=== PATIENT | male | born 1940 | race Caucasian/White ===

== ENCOUNTER 2016-06-23 08:47 | Inpatient (IN) | payer MEDICARE, MEDICAID ==
[~2016-06-23] VITALS: Ht 175.3 cm; Wt 112.5 kg
[~2016-06-23 08:47] MED LIST: ACET-2605 PO; ALLA266C2 TP; ASCO500T10 PO; ASPI81TA2 PO; BACL10TA PO; BALS750C7 PO; BUDE3CAP8 PO; CALC500T3 PO; CYAN100T3 PO; DIVA250T47 PO; ERGO400C PO; FERR325T28 PO; FOLI1TAB16 PO; HYDR-548 PO; LEVE500T9 PO; LIDO30AD10 TP; LOPE2CAP PO; MAGN400O6 PO; METO50TA3 PO; MULT1TAB11 PO; MUPI15CR NS; NA P133E RC; PANT40TA2 PO; TRAM50TA2 PO
--- NOTE | 2016-06-23 08:53 | NUR ---
PT BBPA FROM [facility]: BILATERAL LOWER EXTREMITY CELLULITIS . PLACED ON MONITOR. VSS. AWAITING MD ORDER
[2016-06-23] MEDS ORDERED: VANCOMYCIN 1 GM in IV D5W 250 ML IV ONE (09:00)
[2016-06-23] MEDS ORDERED: GENTAMICIN 80 MG in IV D5W 50 ML IV ONE (09:00)
--- NOTE | 2016-06-23 09:01 | NUR ---
LAC #18 IV ACCESS. BLOOD SAMPLE COLLECTED SENT TO LAB
--- NOTE | 2016-06-23 09:10 | NUR ---
URINE SAMPLE COLLECTED SENT TO LAB
[2016-06-23] MEDS ORDERED: IV SET PRIMARY PUMP SET 1 EA INFUS.SET MC ONE (09:21)
[2016-06-23 09:23] LABS: CALCIUM, SERUM 8.5 mg/dL (8.5-10.1); CARBON DIOXIDE 31 mmol/L (21-32); CHLORIDE 105 mmol/L (98-107); CREATININE 1.6 mg/dL (0.6-1.3); GLUCOSE 131 mg/dL (74-106); POTASSIUM 4.1 mmol/L (3.5-5.1); SODIUM SERUM 142 mmol/L (136-145); UREA NITROGEN, BLOOD 32 mg/dL (7-18)
[2016-06-23] MEDS ORDERED: VALS40TA4 PO (09:23)
[2016-06-23] MEDS ORDERED: SIMV10TA6 PO (09:23)
[2016-06-23] MEDS ORDERED: ACET325T53 PO (09:23)
[2016-06-23] MEDS ORDERED: CALC-108 PO (09:23)
[2016-06-23] MEDS ORDERED: NITR0.4T6 SL (09:23)
[2016-06-23] MEDS ORDERED: CHOL200026 PO (09:23)
[2016-06-23] MEDS ORDERED: FURO-145 PO (09:23)
[2016-06-23] MEDS ORDERED: DIVA500T54 PO (09:23)
[2016-06-23] MEDS ORDERED: METO25TA6 PO (09:23)
[2016-06-23] MEDS ORDERED: MELA3TAB PO (09:23)
[2016-06-23 09:24] LABS: BASOPHILS % (AUTO) 0.1 % (0.0-2.0); EOSINOPHILS % (AUTO) 0.2 % (0.0-6.0); HEMATOCRIT 38 % (39-51); HEMOGLOBIN 12.3 g/dL (13.5-17.5); LYMPHOCYTES # (AUTO) 1.2 /CMM (0.8-4.8); MEAN CORPUSCULAR HEMOGLOBIN 29 PG (26.0-33.0); MEAN CORPUSCULAR HGB CONC 32 g/dl (31.0-36.0); MEAN CORPUSCULAR VOLUME 91 fL (80-96); MONOCYTES # (AUTO) 0.4 /CMM (0.1-1.30); MONOCYTES % (AUTO) 3.5 % (2.0-12.0); NEUTROPHILS # (AUTO) 8.9 /CMM (1.8-8.9); NEUTROPHILS % (AUTO) 85.2 % (43.0-81.0); PLATELET COUNT (AUTO) 171 /CMM (150-450); RED BLOOD CELL COUNT(AUTO) 4.22 MIL/uL (4.5-6.0); WHITE BLOOD COUNT (AUTO) 10.5 K/uL (4.3-11.0)
[2016-06-23 09:29] LABS: ALANINE AMINOTRANSFERASE 11 U/L (12-78); ALBUMIN 2.5 g/dL (3.4-5.0); ALKALINE PHOSPHATASE 29 U/L (46-116); ASPARTATE AMINOTRANSFERASE 13 U/L (15-37); BILIRUBIN,DIRECT 0.1 mg/dL (0.0-0.2); BILIRUBIN,TOTAL 0.6 mg/dL (0.2-1.0); INR 1.02 (0.87-1.13); PROTHROMBIN TIME 10.9 SECS (9.5-12.7); TOTAL PROTEIN, SERUM 6.2 g/dL (6.4-8.2)
--- NOTE | 2016-06-23 09:41 | NUR ---
DR REIS CALLED
[2016-06-23 09:45] LABS: TROPONIN I 0.749 ng/mL (0.00-0.056)
[2016-06-23] MEDS ORDERED: ASPIRIN 325 MG TABLET ONE (09:53)
[2016-06-23] MEDS ORDERED: ASPIRIN 325 MG TABLET PO ONE (10:00)
[2016-06-23 10:07] LABS: LACTIC ACID 2.9 mmol/L (0.4-2.0)
[2016-06-23 10:15] LABS: APPEARANCE,URINE Cloudy (CLEAR); BILIRUBIN,URINE SMALL (NEGATIVE); BLOOD, URINE Moderate Ery/uL (NEGATIVE); COLOR,URINE Yellow (YELLOW); KETONES,URINE Negative (NEGATIVE); LEUKOCYTE ESTERASE ,URINE Large (NEGATIVE); NITRITE, URINE Negative (NEGATIVE); PH,URINE 8.5 (5.0-8.0); PROTEIN,URINE 100 mg/dl (NEGATIVE); UGLUCOSE Negative (NEGATIVE); UROBILINOGEN,URINE 0.2 EU/dL (0.2)
[2016-06-23 10:25] LABS: ADD URINE CULTURE YES; BACTERIA,URINE Few /HPF (None Seen); WBC,URINE 81-100 /HPF (0-3)
[2016-06-23 10:26] LABS: SQUAMOUS EPITHELIAL CELL,UR Rare /HPF (None Seen)
[2016-06-23] MEDS ORDERED: IV NS 0.9% 1,000 ML BAG IV ONE (10:30)
--- NOTE | 2016-06-23 10:55 | NUR ---
GAVE REPORT TO CLIVE MADISON [facility] ROOM 204 -[address] SIBLEY HOMICIDE SQUAD COMMANDING OFFICER SAW PT. TRANSFER VIA W ERT.
[2016-06-23] MEDS: VALSARTAN 40 MG TABLET PO SCH (11:00)
[2016-06-23] MEDS ORDERED: NA PHOS,M-B/NA PHOS,DI-BA 1 EA ENEMA RC PRN (11:00)
[2016-06-23] MEDS: METOPROLOL TARTRATE 25 MG TABLET PO SCH ×2 (11:00→17:08)
[2016-06-23] MEDS ORDERED: MAGNESIUM HYDROXIDE 30 ML UDC PO PRN (11:00)
[2016-06-23] MEDS ORDERED: NITROGLYCERIN 0.4 MG/TAB BOTTLE SL PRN (11:00)
[2016-06-23 11:30] VITALS: BP 103/63
--- NOTE | 2016-06-23 11:30 | NUR ---
MS RN OPENING RECEIVED PATIENT FROM ER FOR C/O INCREASED PAIN, SOB, DIFFICULTY BREATHING. PATIENT DENIES CHEST PAIN. PATIENT ASSISTED TO BED, LINENS CHANGED, BED BATH COMPLETED. PATIENT STATES NO NEEDS AT THIS TIME. VS BEING TAKEN AND DR ANDERSON OFFICE CALLED TO NOTIFY OF ADMISSION AND REPEAT LACTIC ACID LEVEL 2.1. PATIENT STABLE AT THIS TIME. CALL LIGHT IN REACH, BED LOWERED AND LOCKED, RAILS UPX3 FOR SAFETY WITH BED ALARM ON. WILL ROUND Q2H OR LESS PER NEEDS
--- NOTE | 2016-06-23 11:35 | NUR ---
TELE-RN NOTES PATIENT TRANSFERRED FROM UNIT 2 RM 204-1 TO RM 307-1 FOR TELE MONITORING VIA HIS BED. ALERT AND ORIENTED X 3 IN NO ACUTE SIGNS OF DISTRESS. PATIENT HAS DIAGNOSIS OF CELLULITIS TO B/L LOWER EXT. REDNESS AND SWELLING NOTED TO B/L LOWER EXT. PATIENT HAS PMHX OF DVT LLE, SEIZURE, GERD, COLITIS, CHRONIC KIDNEY DSE, BPH, AND HTN. TELE-MONITORING STARTED WITH READING OF SR AND HR OF 82, NO C/O CHEST PAIN OR DISCOMFORTS VOICED AT THIS TIME. V/S CHECKED AND RECORDED. IV ACCESS G# ON LEFT AC # 18 INTACT AND PATENT, FLUSHED WITH SALINE ZENAIDA'N WITHOUT PROBLEM. B/L LOWER EXT OFFLOADED. CALL LIGHT KEEP WITHIN REACH OF PATIENT. BED PUT AT LOWEST POSSIBLE LEVEL, LOCK, ALARM ON AND PUT SIDE RAILS UP X3 FOR SAFETY. WILL CONTINUE TO MONITOR ACCORDINGLY.
[2016-06-23 11:47] LABS: PHOSPHORUS 3.3 mg/dL (2.5-4.9)
--- NOTE | 2016-06-23 11:58 | NUR ---
MS RN NOTES DR ANDERSON AT BEDSIDE. PER MD TRANSFER TO TELE. POSS DVT RIGHT LOWER EXTREMITY. WRITTEN ORDERS BEING CARRIED OUT
--- NOTE | 2016-06-23 12:00 | NUR ---
MS RN NOTES REPORT GIVEN TO FRANCESCO MADISON. DR SIBLEY PAGED TO CONFIRM TELE STATUS. PATIENT TRANSFERED TO TELE 307-[address] ANDERSON ORDER. JEANNETTE TRANSFERED TO FRANCESCO MADISON
[2016-06-23 12:01] LABS: THYROID STIMULATING HORMONE 0.727 uIU/mL (0.358-3.74)
[2016-06-23] MEDS ORDERED: FEE PK DOSING 1 MIN EA MC ONE (12:59)
[2016-06-23] MEDS: ASPIRIN 81 MG TAB.CHEW PO SCH (13:40)
[2016-06-23] MEDS: BALSALAZIDE DISODIUM 750 MG CAPSULE PO SCH ×2 (13:41→17:10)
[2016-06-23] MEDS: BACLOFEN (10 MG) 10 MG TABLET PO SCH ×2 (13:41→17:08)
[2016-06-23] MEDS: BUDESONIDE 3 MG CAP.SR.24H PO SCH (13:42)
--- NOTE | 2016-06-23 14:15 | NUR ---
RN NOTES RECEIVED CALL FROM LABORATORY THAT PATIENT'S TROPONIN LEVEL WENT UP FROM 0.749 TO 1.327. CHARGE NURSE AND DR SIBLEY MADE AWARE WITH ORDER TO START ON LOVENOX 100MG/ML BID. TROPONIN LEVEL WILL BE TAKEN AGAIN TONIGHT.
[2016-06-23] MEDS: CYANOCOBALAMIN 100 MCG TABLET PO SCH (14:16)
[2016-06-23 16:12] VITALS: BP 100/75
[2016-06-23] MEDS ORDERED: ENOXAPARIN SODIUM 100 MG/ML DISP.SYRIN SQ SCH (16:53)
[2016-06-23] MEDS ORDERED: DIVALPROEX SODIUM 250 MG TABLET.DR PO SCH (17:00)
[2016-06-23] MEDS: DIVALPROEX SODIUM 500 MG TABLET.DR PO SCH (17:07)
[2016-06-23] MEDS: CALCIUM CARB 600MG /VIT D 1 EACH TABLET PO SCH (17:08)
--- NOTE | 2016-06-23 18:51 | NUR ---
BURRITO MAKER CLOSING NOTES PATIENT AWAKE AND RESTING AT MODERATE HIGH BACKREST IN BED. ALERT AND ORIENTED X 4, NO C.O PAIN OR DISCOMFORTS VOICED. ALL NEEDS AND CARE WELL ATTENDED. MAINTAINED ON ROOM AIR, NO ACUTE DISTRESS NOTED. ALL DUE MEDS GIVEN ORDERED AND TOLERATED. CONTINUES ON TELE-MONITORING WITH CURRENT READING OF SR AND HR OF 84, NO C/O CHEST PAIN DURING SHIFT. IV ACCESS ON LEFT AC INTACT AND PATENT. CALL LIGHT WITHIN REACH, BED IN LOW POSITION AND BREAKS ARE LOCKED FOR SAFETY PRECAUTIONS. WILL ENDORSED TO LOBSTER FISHERMAN NURSE FOR JEANNETTE
--- NOTE | 2016-06-23 19:30 | NUR ---
RN NOTE; RECEIVED PT IN BED AWAKE AND ALERT, HAVING BLE US DONE. BREATHING EVENLY. NO SOB. NO DISTRESS. SKIN WARM AND DRY W/ BLE SWOLLEN AND RED AND CHRONIC PAIN. HEART MONITOR IN PLACE READING SR. NEEDS ATTENDED .CALL LIGHT WITHIN REACH. WILL CONT TO MONITOR .
[2016-06-23 20:00] VITALS: BP 101/55
[2016-06-23 20:04] VITALS: BP 101/55
--- NOTE | 2016-06-23 20:42 | NUR ---
REPORT GIVEN TO MIGUEL ANGEL FOR JEANNETTE.
--- NOTE | 2016-06-23 20:45 | NUR ---
TELE SUPERVISOR FUR DRESSING INITIAL NOTES CHECKED PT AFTER GOT REPORT FROM NURSE SEGOVIA FOR CONTINUITY OF CARE. PT RESTING WITH EYES CLOSED BUT AROUSES TO TOUCH, DENIES ANY PAIN OR ANY DISCOMFORT. CELLULITIS NOTED ON HIS BILATERAL LOWER EXTREMITIES, OFFLOAD ON PILLOWS. HEPLOCK ON HIS LEFT AC GAUGE 18 PATENT AND INTACT. AWARE WHERE HE AT AND HOW TO USED THE CALL LIGHT SYSTEM. KEPT HIM WARM AND COMFORTABLE AT ALL TIMES. TELE SR 84 PER MONITOR. BED ALARM SET FOR PT SAFETY. PLACE CALL LIGHT AT REACH. WILL CONTINUE TO MONITOR.
[2016-06-23] MEDS: SIMVASTATIN 10 MG TABLET PO SCH (21:48)
[2016-06-23] MEDS: LEVETIRACETAM (250 MG) 250 MG TABLET PO SCH (21:48)
[2016-06-23] MEDS ORDERED: Medication Not On Formulary EA (Melatonin 3 MG) PO SCH (22:00)
[2016-06-24] VITALS (7 sets, daily range): BP systolic 98–137; BP diastolic 58–67
[2016-06-24] MEDS: ACETAMINOPHEN 325 MG TABLET PO PRN ×3 (00:05→14:18)
[2016-06-24] MEDS: VANCOMYCIN 1.25 GM in IV D5W 500 ML IV SCH ×2 (03:00→20:49)
--- NOTE | 2016-06-24 03:00 | NUR ---
TELE PRESS TENDER STAR SIGNAL NOTES PT SLEEPING AT THIS TIME WITHOUT ELY ACUTE DISTRESS NOTED. VANCOMYCIN IVP BAG HUNG BY ANOTHER NURSE ORDERED. TELE SR PER MONITOR. KEPT HIM WARM AND COMFORTABLE AT ALL TIMES. WILL CONTINUE TO MONITOR.
[2016-06-24] MEDS ORDERED: VANCOMYCIN 1 GM VIAL ONE (03:23)
[2016-06-24] MEDS ORDERED: IV D5W 500 ML IV ONE (03:24)
[2016-06-24 07:08] LABS: BASOPHILS % (AUTO) 0.2 % (0.0-2.0); EOSINOPHILS # (AUTO) 0.4 /CMM (0.0-0.7); EOSINOPHILS % (AUTO) 3.6 % (0.0-6.0); HEMATOCRIT 38 % (39-51); LYMPHOCYTES # (AUTO) 1.6 /CMM (0.8-4.8); LYMPHOCYTES % (AUTO) 14.2 % (20.0-44.0); MEAN CORPUSCULAR HEMOGLOBIN 29 PG (26.0-33.0); MEAN CORPUSCULAR HGB CONC 31 g/dl (31.0-36.0); MEAN CORPUSCULAR VOLUME 92 fL (80-96); MONOCYTES # (AUTO) 0.7 /CMM (0.1-1.30); MONOCYTES % (AUTO) 5.8 % (2.0-12.0); NEUTROPHILS # (AUTO) 8.6 /CMM (1.8-8.9); NEUTROPHILS % (AUTO) 76.2 % (43.0-81.0); RDW COEFFICIENT OF VARIATION 14.3 (11.5-15.0); RED BLOOD CELL COUNT(AUTO) 4.17 MIL/uL (4.5-6.0); WHITE BLOOD COUNT (AUTO) 11.3 K/uL (4.3-11.0)
[2016-06-24 07:27] LABS: ALBUMIN 2.1 g/dL (3.4-5.0); BILIRUBIN,TOTAL 0.5 mg/dL (0.2-1.0); CALCIUM, SERUM 9.1 mg/dL (8.5-10.1); CREATININE 1.6 mg/dL (0.6-1.3); MAGNESIUM 2.2 mg/dL (1.8-2.4); PHOSPHORUS 3.4 mg/dL (2.5-4.9); POTASSIUM 4.2 mmol/L (3.5-5.1); TOTAL PROTEIN, SERUM 6.1 g/dL (6.4-8.2)
--- NOTE | 2016-06-24 07:30 | NUR ---
TELE SLEEVE MAKER CLOSING NOTES PT BACK TO REST AFTER MORNING CARE DONE. HEPLOCK PATENT AND INTACT. STABLE AMBREEN THE NIGHT AND SLEPT WELL. BREATHING EVEN AND UN-LABORED, ALL DUE MEDS GIVEN AND ALL NEEDS MET. KEPT HIM WARM AND COMFORTABLE AT ALL TIMES. PLACE CALL LIGHT AT REACH. TELE SR PER MONITOR. ENDORSE TO AM NURSE YANY .
--- NOTE | 2016-06-24 07:30 | NUR ---
SAT ACT INSTRUCTOR OPENING NOTE PATIENT IS ALERT AND ORIENTED x4. NO PAIN AT THIS TIME. NO SOB OR DISTRESS NOTED. CALL LIGHT WITHIN REACH. SAFETY MEASURES IMPLEMENTED. IV INTACT AND PATENT NO REDNESS OR SWELLING. ABLE TO COMMUNICATE NEEDS. BEDREST. TELE MONITOR- SR- 81. WILL CONTINUE TO MONITOR
[2016-06-24 08:30] LABS: TROPONIN I 0.834 ng/mL (0.00-0.056)
--- NOTE | 2016-06-24 08:50 | NUR ---
RN NOTE PATIENT STATES HEADACHE 3/10. PAIN MEDICATION GIVEN. WILL REASSESS FOR PAIN.
[2016-06-24] MEDS ORDERED: IV NS 0.9% 1,000 ML IV PRN (08:52)
[2016-06-24] MEDS: ASPIRIN 81 MG TAB.CHEW PO SCH (08:57)
[2016-06-24] MEDS: LEVETIRACETAM (250 MG) 250 MG TABLET PO SCH ×2 (08:57→21:04)
[2016-06-24] MEDS: CHOLECALCIFEROL 1,000 UNIT TABLET (VIT D3) PO SCH (08:57)
[2016-06-24] MEDS: MULTIVIT, IRON, MIN NO. 8, FA 1 TAB TABLET PO SCH (08:57)
[2016-06-24] MEDS: DIVALPROEX SODIUM 250 MG TABLET.DR PO SCH ×2 (08:57→14:17)
[2016-06-24] MEDS: BACLOFEN (10 MG) 10 MG TABLET PO SCH ×2 (08:57→17:26)
[2016-06-24] MEDS: BALSALAZIDE DISODIUM 750 MG CAPSULE PO SCH ×3 (08:58→17:27)
[2016-06-24] MEDS: CYANOCOBALAMIN 100 MCG TABLET PO SCH (08:58)
[2016-06-24] MEDS: VALSARTAN 40 MG TABLET PO SCH (08:58)
[2016-06-24] MEDS: BUDESONIDE 3 MG CAP.SR.24H PO SCH (08:58)
[2016-06-24 09:09] LABS: BAND % (MANUAL) 1 % (0.0-5.0); EOSINOPHILS % (MANUAL) 5 % (0-4); LYMPHOCYTES % (MANUAL) 13 % (16-48); MONOCYTES % (MANUAL) 10 % (0-11.0); NEUTROPHILS % (MANUAL) 71 (42-76)
[2016-06-24 09:11] LABS: PLATELET ESTIMATE ADEQUATE
--- NOTE | 2016-06-24 09:50 | NUR ---
RN NOTE REASSESSED PATIENT FOR PAIN. NO HEADACHE PRESENT. ABLE TO MAKE NEEDS KNOWN. WILL CONTINUE TO MONITOR
[2016-06-24] MEDS: CALCIUM CARB 600MG /VIT D 1 EACH TABLET PO SCH ×2 (09:51→17:26)
[2016-06-24] MEDS: METOPROLOL TARTRATE 25 MG TABLET PO SCH ×2 (09:51→17:00)
[2016-06-24] MEDS: ENOXAPARIN SODIUM 40 MG/0.4 ML DISP.SYRIN SQ SCH (09:52)
[2016-06-24 10:17] LABS: PLATELET COUNT (AUTO) 117 /CMM (150-450)
--- NOTE | 2016-06-24 14:00 | NUR ---
RN NOTE PATIENT STATED PAIN 5/10. PAIN MEDICATION GIVEN, WILL REASSESS PATIENT. WILL CONTINUE TO MONITOR
[2016-06-24] MEDS ORDERED: LEVOFLOXACIN 500 MG /D5W 100ML 500 MG in PREMIX 1 EA IV ONE (17:30)
[2016-06-24] MEDS ORDERED: hydrALAZINE HCL 25 MG TABLET PO PRN (17:30)
[2016-06-24] MEDS: DIVALPROEX SODIUM 500 MG TABLET.DR PO SCH (17:30)
--- NOTE | 2016-06-24 17:30 | NUR ---
BUSINESS PROCESS REPRESENTATIVE NOTE HELD PATIENTS BLOOD PRESSURE MEDICATION. BLOOD PRESSURE TOO LOW TO GIVE. MADE CHARGE NURSE AWARE.
--- NOTE | 2016-06-24 18:34 | NUR ---
NCA CERTIFIED CONCIERGE NOTE PATIENT IS ALERT AND ORIENTED X4. NO PAIN AT THIS TIME. NO SOB OR DISTRESS NOTED. ALL DUE MEDICATION GIVEN ORDERED. ABLE TO COMMUNICATE NEEDS. CALL LIGHT WITHIN REACH AT ALL TIMES. SAFETY MEASURES IMPLEMENTED. ALL NURSING CARE NEEDS ATTENDED TO. FREQUENT MONITORING FOR PAIN ASSESSMENT THROUGHOUT SHIFT. RECEIVED ONE DOSE OF LEVAQUIN IV. IV INTACT AND PATENT NO REDNESS OR SWELLING NOTED. WILL ENDORSE TO HR PAYROLL COORDINATOR NURSE Addendum: 06/24/16 at 1836 by YANY YARBROUGH RN CLOSING NOTE*
--- NOTE | 2016-06-24 19:00 | NUR ---
FOREST MANAGEMENT PROFESSOR NOTES RECEIVED RESTING COMFORTABLY ON BED,A/O X3,BREATHING NON LABORED,ABLE TO VERBALIZED NEEDS,NOTED REDNESS ON BOTH LEGS,ELEVATED ON PILLOWS.SALINE LOCK LEFT AC INTACT AND PATENT.KENNETH PAIN AT THE MOMENT.CALL LIGHT IN REACH,NEEDS ANTICIPATED.
--- NOTE | 2016-06-24 20:49 | NUR ---
MS RN NOTES DUE VANCOMYCIN 1.25GM IVPB HUNG
--- NOTE | 2016-06-24 21:00 | NUR ---
PLANT WRAPPER NOTES DUE PO MEDS GIVEN,TAKEN WELL.
[2016-06-24] MEDS: SIMVASTATIN 10 MG TABLET PO SCH (21:04)
[2016-06-25] VITALS: BP 114/63
[2016-06-25] MEDS: ACETAMINOPHEN 325 MG TABLET PO PRN ×3 (03:22→22:24)
--- NOTE | 2016-06-25 03:22 | NUR ---
LAB REP NOTES C/O GENERALIZED PAIN 3/10 ON PAIN SCALE,MEDICATED WITH TYLENOL 650MG PO PER PATIENT REQUEST.
[2016-06-25 04:00] VITALS: BP 118/65
[2016-06-25 06:46] VITALS: BP 106/72
--- NOTE | 2016-06-25 06:49 | NUR ---
MATERIAL INSPECTOR NOTES FAIRLY RESTED.IV ABX TOLERATED WELL.PRESENT IVF INFUSING,SITE REMAINS PATENT.TYLENOL EFFECTIVE FOR PAIN.CALL LIGHT IN REACH,NEEDS ATTENDED.WILL ENDORSE TO DAY NURSE FOR JEANNETTE.
[2016-06-25 07:07] LABS: BASOPHILS % (AUTO) 0.2 % (0.0-2.0); EOSINOPHILS # (AUTO) 0.3 /CMM (0.0-0.7); EOSINOPHILS % (AUTO) 3.6 % (0.0-6.0); HEMATOCRIT 34 % (39-51); HEMOGLOBIN 11.2 g/dL (13.5-17.5); LYMPHOCYTES # (AUTO) 1.1 /CMM (0.8-4.8); LYMPHOCYTES % (AUTO) 12.4 % (20.0-44.0); MEAN CORPUSCULAR HEMOGLOBIN 30 PG (26.0-33.0); MEAN CORPUSCULAR HGB CONC 33 g/dl (31.0-36.0); MEAN CORPUSCULAR VOLUME 91 fL (80-96); MONOCYTES # (AUTO) 0.7 /CMM (0.1-1.30); MONOCYTES % (AUTO) 7.7 % (2.0-12.0); NEUTROPHILS # (AUTO) 6.6 /CMM (1.8-8.9); NEUTROPHILS % (AUTO) 76.1 % (43.0-81.0); PLATELET COUNT (AUTO) 132 /CMM (150-450); RDW COEFFICIENT OF VARIATION 14.5 (11.5-15.0); RED BLOOD CELL COUNT(AUTO) 3.76 MIL/uL (4.5-6.0); WHITE BLOOD COUNT (AUTO) 8.7 K/uL (4.3-11.0)
[2016-06-25 07:29] LABS: CALCIUM, SERUM 9.5 mg/dL (8.5-10.1); CREATININE 1.4 mg/dL (0.6-1.3); MAGNESIUM 1.9 mg/dL (1.8-2.4); PHOSPHORUS 3.6 mg/dL (2.5-4.9); POTASSIUM 3.9 mmol/L (3.5-5.1)
--- NOTE | 2016-06-25 07:30 | NUR ---
CHEMICAL PROCESSING SUPERVISOR OPENING NOTE PATIENT IS ALERT AND ORIENTED x4. NO PAIN AT THIS TIME. NO SOB OR DISTRESS NOTED. CALL LIGHT WITHIN REACH. SAFETY MEASURES IMPLEMENTED. ABLE TO COMMUNICATE NEEDS. IV INTACT AND PATENT. PATIENT STILL HAS BILATERAL LOWER LEG CELLULITIS, WOUND CARE NURSE TO SEE PATIENT LATER THIS MORNING. BED REST, REPOSITIONING FREQUENTLY. LOWER EXTREMITIES OFFLOADING. WILL CONTINUE TO MONITOR
--- NOTE | 2016-06-25 08:16 | NUR ---
WOUND CARE CONSULT: PT PRESENTS WITH SWELLING AND REDNESS TO BILATERAL LOWER LEGS WITH SOME REDNESS TO RT INNER THIGH AND LATERAL THIGH, PRESENT ON ADMISSION. PT IS INCONTINENT. SKIN TO BE KEPT CLEAN AND DRY. LEGS ELEVATED. DISCUSSED SKIN PROTECTION WITH NURSING STAFF. PT FOLLOWED BY DPM. WILL SEE PRN. PT ON COMFORT GEL MATTRESS. MARY SCORE IS 16. MD IN AGREEMENT WITH PLAN OF CARE. Addendum: 06/25/16 at 0818 by JAYSON NAVARRETE WNDNU Amended: Links added.
--- NOTE | 2016-06-25 08:45 | NUR ---
RN NOTE PATIENT TAKEN OFF TELE MONITOR PER INTERNAL COMMUNICATIONS MANAGER. MADE PATIENT AWARE. PATIENT UNDERSTANDS REASON FOR TELE MONITORING REMOVAL. SKIN INTACT, PATIENT TOLERATED WELL. WILL CONTINUE TO MONITOR
[2016-06-25] MEDS: ENOXAPARIN SODIUM 40 MG/0.4 ML DISP.SYRIN SQ SCH (08:49)
[2016-06-25] MEDS: ASPIRIN 81 MG TAB.CHEW PO SCH (08:50)
[2016-06-25] MEDS: LEVETIRACETAM (250 MG) 250 MG TABLET PO SCH ×2 (08:51→21:53)
[2016-06-25] MEDS: DIVALPROEX SODIUM 250 MG TABLET.DR PO SCH ×2 (08:51→12:20)
[2016-06-25] MEDS: CHOLECALCIFEROL 1,000 UNIT TABLET (VIT D3) PO SCH (08:54)
[2016-06-25] MEDS: MULTIVIT, IRON, MIN NO. 8, FA 1 TAB TABLET PO SCH (08:54)
[2016-06-25] MEDS: CALCIUM CARB 600MG /VIT D 1 EACH TABLET PO SCH ×2 (08:54→17:36)
[2016-06-25] MEDS: BACLOFEN (10 MG) 10 MG TABLET PO SCH ×2 (08:56→17:36)
[2016-06-25] MEDS: METOPROLOL TARTRATE 25 MG TABLET PO SCH ×2 (08:56→17:35)
[2016-06-25] MEDS: BALSALAZIDE DISODIUM 750 MG CAPSULE PO SCH ×3 (08:58→17:36)
[2016-06-25] MEDS: CYANOCOBALAMIN 100 MCG TABLET PO SCH (08:59)
[2016-06-25] MEDS: BUDESONIDE 3 MG CAP.SR.24H PO SCH (09:01)
[2016-06-25] MEDS: Z GUARD REMEDY 2 OZ OINT TP SCH (09:35)
[2016-06-25] MEDS ORDERED: CEPHALEXIN MONOHYDRATE 250 MG/5 ML BOTTLE PO SCH (13:00)
[2016-06-25] MEDS ORDERED: CEPHALEXIN MONOHYDRATE 250 MG CAPSULE PO SCH (13:30)
[2016-06-25] MEDS: CEPHALEXIN MONOHYDRATE 500 MG CAPSULE PO SCH (14:38)
[2016-06-25] MEDS: VANCOMYCIN 1.25 GM in IV D5W 500 ML IV SCH ×2 (14:39→15:00)
--- NOTE | 2016-06-25 15:04 | NUR ---
MS RN NOTE VANCOMYCIN TROUGH IS 21. NOTIFIED RAJENDRA FROM PHARMACY TO MAKE AWARE. MEDICATION HELD. WILL CONTINUE TO MONITOR PATIENT
[2016-06-25 16:00] VITALS: BP 126/66
[2016-06-25] MEDS: DIVALPROEX SODIUM 500 MG TABLET.DR PO SCH (17:35)
[2016-06-25] MEDS ORDERED: LEVOFLOXACIN 250 MG /D5W 50 ML 250 MG in PREMIX 1 EA IV SCH (18:00)
--- NOTE | 2016-06-25 18:39 | NUR ---
MR RN CLOSING NOTE PATIENT IS ALERT AND ORIENTED x4. NO PAIN AT THIS TIME. NO SOB OR DISTRESS NOTED. RECEIVED A CALL FROM MICROBIOLOGY, MRSA CAME BACK POSITIVE FOR FOOT WOUND. CONTACT PRECAUTIONS INITIATED. ALL DUE MEDICATIONS GIVEN ORDERED. ALL NURSING CARE NEEDS ATTENDED FOR. NEW IV STARTED ON LEFT HAND 18G, INTACT AND PATENT. SAFETY MEASURES IMPLEMENTED. CALL LIGHT WITHIN REACH AT ALL TIMES. ABLE TO MAKE NEEDS KNOWN WILL ENDORSE TO SUPERVISOR ASPHALT PAVING NURSE
[2016-06-25 19:00] VITALS: BP 127/78
--- NOTE | 2016-06-25 19:30 | NUR ---
MS ASHOK INITIAL NOTES SEEN PT IN BED AWAKE AND ALERT WATCHING TV AT THIS TIME. DENIES ANY PAIN OR ANY DISCOMFORT. HEPLOCK PATENT AND INTACT ON HIS LEFT HAND .BILATERAL LEGS UP ON PILLOWS FOR PT COMFORT. ENCOURAGES HIM TO USED THE CALL LIGHT IF HE NEEDS SOME HELPED. KEPT HIM WARM AND COMFORTABLE AT ALL TIMES. BED ALARM SET FOR PT SAFETY. WILL CONTINUE TO MONITOR.
[2016-06-25 20:00] VITALS: BP 127/78
[2016-06-25] MEDS: SIMVASTATIN 10 MG TABLET PO SCH (21:54)
--- NOTE | 2016-06-25 22:30 | NUR ---
SLATE ROOFER/NOTES PT COMPLAINED OF MILD PAIN LOWER LEGS AND BACK, TYLENOL 650 TABLET GIVEN ORDERED. WILL CONTINUE TO MONITOR. PLACE CALL LIGHT AT REACH.
--- NOTE | 2016-06-26 | NUR ---
ROUTE SERVICE REPRESENTATIVE/NOTES PT SLEEPING COMFORTABLY IN BED WITH NO SIGNS OF ANY ACUTE DISTRESS NOTED. KEPT HIM COMFORTABLE AT ALL TIMES. WILL CONTINUE TO MONITOR. PLACE CALL LIGHT AT REACH.
[2016-06-26] MEDS: CEPHALEXIN MONOHYDRATE 500 MG CAPSULE PO SCH ×2 (01:39→12:55)
[2016-06-26 06:53] LABS: CALCIUM, SERUM 9.4 mg/dL (8.5-10.1); CREATININE 1.3 mg/dL (0.6-1.3); POTASSIUM 4.1 mmol/L (3.5-5.1)
--- NOTE | 2016-06-26 07:30 | NUR ---
RN MS NOTES RECEIVED PATIENT IN BED A/OX3, NO ACUTE DISTRESS NOTED, DENIES SOB, DENIES PAIN. IV LINE PATENT, ALL NEEDS MET, KEPT CLEAN AND DRY.
--- NOTE | 2016-06-26 07:33 | NUR ---
BITUMEN PLANT OPERATOR/CLOSING NOTES PT BACK TO SLEEP AFTER SPONGES BATH RENDERED. SLEPT WELL AND STABLE AMBREEN THE NIGHT. ALL DUE MEDS GIVEN AND ALL NEEDS MET. KEPT HIM WARM AND COMFORTABLE AT ALL TIMES. ENDORSE TO AM NURSE FOR CONTINUITY OF CARE. PLACE CALL LIGHT AT REACH.
[2016-06-26 08:00] VITALS: BP 138/67
[2016-06-26] MEDS: VANCOMYCIN 1 GM in IV D5W 250 ML IV SCH (08:47)
[2016-06-26] MEDS: ENOXAPARIN SODIUM 40 MG/0.4 ML DISP.SYRIN SQ SCH (08:49)
[2016-06-26] MEDS: DIVALPROEX SODIUM 250 MG TABLET.DR PO SCH ×2 (08:49→12:55)
[2016-06-26] MEDS: LEVETIRACETAM (250 MG) 250 MG TABLET PO SCH ×2 (08:49→22:26)
[2016-06-26] MEDS: MULTIVIT, IRON, MIN NO. 8, FA 1 TAB TABLET PO SCH (08:49)
[2016-06-26] MEDS: CALCIUM CARB 600MG /VIT D 1 EACH TABLET PO SCH ×2 (08:49→17:40)
[2016-06-26] MEDS: BACLOFEN (10 MG) 10 MG TABLET PO SCH ×2 (08:50→17:40)
[2016-06-26] MEDS: CHOLECALCIFEROL 1,000 UNIT TABLET (VIT D3) PO SCH (08:50)
[2016-06-26] MEDS: BUDESONIDE 3 MG CAP.SR.24H PO SCH (08:50)
[2016-06-26] MEDS: ASPIRIN 81 MG TAB.CHEW PO SCH (08:50)
[2016-06-26] MEDS: CYANOCOBALAMIN 100 MCG TABLET PO SCH (08:50)
[2016-06-26] MEDS: METOPROLOL TARTRATE 25 MG TABLET PO SCH ×2 (08:58→17:40)
[2016-06-26] MEDS: Z GUARD REMEDY 2 OZ OINT TP SCH (09:08)
[2016-06-26] MEDS: BALSALAZIDE DISODIUM 750 MG CAPSULE PO SCH ×3 (10:00→17:39)
--- NOTE | 2016-06-26 15:45 | NUR ---
RN NS NOTES PATIENT IN BED, NO APPARENT DISTRESS NOTED, DENIES SOB, DENIES PAIN. ON CONTACT ISOLATION FOR MRSA OF THE WOUND. IV LINE PATENT, NOS/S OF INFILTRATION NOTED. ALL NEEDS MET, KEPT CLEAN AND DRY.
[2016-06-26 16:00] VITALS: BP 118/72
[2016-06-26] MEDS: ACETAMINOPHEN 325 MG TABLET PO PRN ×2 (17:39→22:27)
[2016-06-26] MEDS: DIVALPROEX SODIUM 500 MG TABLET.DR PO SCH (17:40)
--- NOTE | 2016-06-26 18:55 | NUR ---
RN MS CLOSING NOTES PATIENT IN APPARENT DISTRESS, DENIES SOB, DENIES PAIN. WBCS ARE TRENDING DOWN, NOW AT 8.7. IV LINE PATENT, NO S/S OF INFILTRATION NOTED. ALL NEEDS MET, KEPT CLEAN AND DRY, CALL LIGHT WITHIN REACH.
--- NOTE | 2016-06-26 19:36 | NUR ---
MS ASHOK INITIAL NOTES RECEIVED REPORT FROM AM NURSE KIYA WHILE DOING OUR ROUNDS, AND SEEN PT IN BED AWAKE AND ALERT WATCHING TV AT THIS TIME. DENIES ANY PAIN OR ANY DISCOMFORT. IVF STILL INFUSING ON HIS LEFT HAND PATENT AND INTACT. BILATERAL LOWER EXTREMITIES STILL SWOLLEN AND OFFLOAD WITH PILLOWS. KEPT HIM WARM AND COMFORTABLE AT ALL TIMES. PLACE CALL LIGHT AT REACH, WILL CONTINUE TO MONITOR.
[2016-06-26 20:00] VITALS: BP 127/69
[2016-06-26 20:39] VITALS: BP 127/69
[2016-06-26] MEDS: SIMVASTATIN 10 MG TABLET PO SCH (22:27)
[2016-06-27] MEDS: CEPHALEXIN MONOHYDRATE 500 MG CAPSULE PO SCH ×2 (01:48→12:59)
[2016-06-27] MEDS: VANCOMYCIN 1 GM in IV D5W 250 ML IV SCH ×2 (04:07→04:11)
--- NOTE | 2016-06-27 04:11 | NUR ---
RN NOTES: PT'S LAST VANCO TROUGH WAS 21, HOWEVER, PER PHARMACY, DOSE ADJUSTED AND CONT TO GIVE VANCO 1 GM Q 18. ADMINISTERED VANCOMYCIN 1 GM IV SCHEDULED AT THIS TIME.
--- NOTE | 2016-06-27 07:31 | NUR ---
MS EASTER BUNNY CLOSING NOTES PT BACK TO REST AFTER MORNING CARE DONE, DENIES ANY PAIN OR ANY DISCOMFORT. STABLE AMBREEN THE NIGHT AND SLEPT WELL. ALL DUE MEDS GIVEN AND ALL NEEDS MET. KEPT HIM WARM AND COMFORTABLE AT ALL TIMES. SAFETY PRECAUTION APPLIED AND ISOLATION PRECAUTION IMPLEMENTED AND OBSERVED. ENDORSE TO AM NURSE FOR CONTINUITY OF CARE.
--- NOTE | 2016-06-27 07:35 | NUR ---
RN OPEN NOTES RECEIVED REPORT FROM PRESSURE VESSEL INSPECTOR NURSE. PATIENT IS IN BED, AWAKE ALERT AND ORIENTED X3. NO SIGN AND SYMPTOMS OF DISTRESS. DENIED PAIN. IV SITE IS INTACT AND PATENT. WILL CONTINUE TO ASSESS AND MONITOR PATIENT THROUGH OUT MY SHIFT.
[2016-06-27 08:00] VITALS: BP 145/63
[2016-06-27] MEDS: CYANOCOBALAMIN 100 MCG TABLET PO SCH (08:15)
[2016-06-27] MEDS: BUDESONIDE 3 MG CAP.SR.24H PO SCH (08:15)
[2016-06-27] MEDS: BALSALAZIDE DISODIUM 750 MG CAPSULE PO SCH ×2 (08:16→12:59)
[2016-06-27] MEDS: DIVALPROEX SODIUM 250 MG TABLET.DR PO SCH ×2 (08:17→12:59)
[2016-06-27] MEDS: LEVETIRACETAM (250 MG) 250 MG TABLET PO SCH (08:17)
[2016-06-27] MEDS: BACLOFEN (10 MG) 10 MG TABLET PO SCH (08:17)
[2016-06-27] MEDS: ASPIRIN 81 MG TAB.CHEW PO SCH (08:17)
[2016-06-27] MEDS: MULTIVIT, IRON, MIN NO. 8, FA 1 TAB TABLET PO SCH (08:17)
[2016-06-27 08:18] VITALS: BP 145/63
[2016-06-27] MEDS: CALCIUM CARB 600MG /VIT D 1 EACH TABLET PO SCH (08:18)
[2016-06-27] MEDS: METOPROLOL TARTRATE 25 MG TABLET PO SCH (08:18)
[2016-06-27] MEDS: CHOLECALCIFEROL 1,000 UNIT TABLET (VIT D3) PO SCH (08:19)
[2016-06-27] MEDS: ENOXAPARIN SODIUM 40 MG/0.4 ML DISP.SYRIN SQ SCH (08:23)
[2016-06-27] MEDS: Z GUARD REMEDY 2 OZ OINT TP SCH (08:25)
[2016-06-27 10:34] LABS: BASOPHILS % (AUTO) 0.3 % (0.0-2.0); EOSINOPHILS # (AUTO) 0.9 /CMM (0.0-0.7); EOSINOPHILS % (AUTO) 12.4 % (0.0-6.0); HEMATOCRIT 35 % (39-51); HEMOGLOBIN 11.5 g/dL (13.5-17.5); LYMPHOCYTES % (AUTO) 14.3 % (20.0-44.0); MEAN CORPUSCULAR HEMOGLOBIN 30 PG (26.0-33.0); MEAN CORPUSCULAR HGB CONC 33 g/dl (31.0-36.0); MEAN CORPUSCULAR VOLUME 91 fL (80-96); MONOCYTES # (AUTO) 0.6 /CMM (0.1-1.30); MONOCYTES % (AUTO) 8.1 % (2.0-12.0); NEUTROPHILS # (AUTO) 4.5 /CMM (1.8-8.9); NEUTROPHILS % (AUTO) 64.9 % (43.0-81.0); PLATELET COUNT (AUTO) 179 /CMM (150-450); RDW COEFFICIENT OF VARIATION 14.9 (11.5-15.0); RED BLOOD CELL COUNT(AUTO) 3.92 MIL/uL (4.5-6.0); WHITE BLOOD COUNT (AUTO) 6.9 K/uL (4.3-11.0)
[2016-06-27 10:55] LABS: CALCIUM, SERUM 8.9 mg/dL (8.5-10.1); CREATININE 1.2 mg/dL (0.6-1.3); MAGNESIUM 1.8 mg/dL (1.8-2.4); PHOSPHORUS 3.1 mg/dL (2.5-4.9); POTASSIUM 3.5 mmol/L (3.5-5.1)
[2016-06-27] MEDS ORDERED: ALLA266C2 TP (11:15)
[2016-06-27] MEDS ORDERED: RXVAN XX (11:15)
[2016-06-27] MEDS ORDERED: METO25TA20 PO (11:15)
--- NOTE | 2016-06-27 14:00 | NUR ---
GAVE REPORT TO ENRIQUE FROM [facility]
--- NOTE | 2016-06-27 14:35 | NUR ---
ASSISTANT ENGINEER NOTES PATIENT DISCHARGE ORDERS RECEIVED. REPORT GAVE JULIA NUNEZ RN AT [facility]. PATENT IS ALERT AND ORIENTED X3. ALL PERSONAL BELONGING WAS PATIENT AT TIME OF DISCHARGE. PICTURES WERE TAKEN AND PLACED IN THE CHART. NO SIGN AND SYMPTOMS OF DISTRESS. DENIED PAIN. ID BAND REMOVED. PATIENT IV SITE IS INTACT AND PATENT. IV SITE NOT REMOVED DUE TO CONTINUATION OF IV ADMINISTRATION OF ANTIBIOTIC. VITAL SIGNS ARE STABLE: BLOOD PRESSURE 133/74, HEART RATE 68 AND O2 SAT 96% ROOM AIR. PATIENT TRANSFERRED TO [facility] VIA AMBULANCE.
== END 2016-06-27 14:35 | DRG 871 ==
LOC: ER 08:49 → MEDSG2 11:03 → TELE 12:08 → MED 06-25 08:39
PROVIDERS: ADMIT Internal Medicine Nephrology; ATTEND Internal Medicine Nephrology
DX: A41.9 Sepsis, unspecified organism (principal); I21.4 Non-ST elevation (NSTEMI) myocardial infarction; N17.0 Acute kidney failure with tubular necrosis; L03.115 Cellulitis of right lower limb; N39.0 Urinary tract infection, site not specified; L03.116 Cellulitis of left lower limb; E87.2 Acidosis; I25.10 Atherosclerotic heart disease of native coronary artery without angina pectoris; E86.9 Volume depletion, unspecified; I12.9 Hypertensive chronic kidney disease with stage 1 through stage 4 chronic kidney disease, or unspecified chronic kidney disease; N18.9 Chronic kidney disease, unspecified; B96.4 Proteus (mirabilis) (morganii) as the cause of diseases classified elsewhere; G40.909 Epilepsy, unspecified, not intractable, without status epilepticus; Z87.891 Personal history of nicotine dependence; Z86.718 Personal history of other venous thrombosis and embolism; Z79.899 Other long term (current) drug therapy; I73.9 Peripheral vascular disease, unspecified; K21.9 Gastro-esophageal reflux disease without esophagitis; I87.2 Venous insufficiency (chronic) (peripheral); L85.3 Xerosis cutis; I88.9 Nonspecific lymphadenitis, unspecified; B95.62 Methicillin resistant Staphylococcus aureus infection as the cause of diseases classified elsewhere; R65.20 Severe sepsis without septic shock
CPT/HCPCS: 36415; 71010-TC; 80048-TC; 80053-TC; 80061-TC; 80076-TC; 80202-TC; 81000-TC; 82306; 82728-TC; 83540-TC; 83605-TC; 83735-TC; 84100-TC; 84439-TC; 84443-TC; 84484-TC; 85025-TC; 85730-TC; 87040-TC; 87070-TC; 87081-TC; 87086-TC; 87186-TC; 93307-TC; 93970-TC; 97001-TC; 97116-TC; 97530-TC; A4216; A4606; A6402; J1580; J1650; J1956; J3370; J7060; Z7610

== ENCOUNTER 2018-04-06 10:11 | Inpatient (IN) | payer MEDICARE, MEDICAID ==
[~2018-04-06] VITALS: Ht 172.7 cm; Wt 106.6 kg
[~2018-04-06 10:11] MED LIST changes: -ACET-2605 PO; +ACET325T53 PO; -ASCO500T10 PO; +ASPI-1169 PO; -ASPI81TA2 PO; +CALC-261 PO; -CALC500T3 PO; +CHOL200026 PO; +DIVA500T54 PO; -ERGO400C PO; -FERR325T28 PO; -FOLI1TAB16 PO; +FURO-145 PO; -HYDR-548 PO; -LIDO30AD10 TP; -LOPE2CAP PO; +MELA3TAB PO; +METO25TA20 PO; +METO25TA6 PO; -METO50TA3 PO; -MUPI15CR NS; +NITR0.4T48 SL; -PANT40TA2 PO; +RXVAN XX; +SIMV10TA6 PO; +VALS40TA4 PO
--- NOTE | 2018-04-06 10:30 | NUR ---
patient presented to the ER sent by Dr. Kendall (wound MD) d/t left lower leg cellulitis. On room air, breathing evenly and unlabored. denies any pain at this time. connected to the monitor and pulse ox. kept comfortable, will continue to monitor accordingly.
[2018-04-06 11:12] LABS: BASOPHILS # (AUTO) 0.1 /CMM (0.0-0.2); BASOPHILS % (AUTO) 0.6 % (0.0-2.0); EOSINOPHILS % (AUTO) 3.7 % (0.0-6.0); HEMATOCRIT 37 % (39-51); HEMOGLOBIN 12.2 g/dL (13.5-17.5); LYMPHOCYTES # (AUTO) 1.9 /CMM (0.8-4.8); MEAN CORPUSCULAR HGB CONC 33 g/dl (31.0-36.0); MEAN CORPUSCULAR VOLUME 93 fL (80-96); MONOCYTES # (AUTO) 0.9 /CMM (0.1-1.30); MONOCYTES % (AUTO) 10.3 % (2.0-12.0); NEUTROPHILS # (AUTO) 5.4 /CMM (1.8-8.9); NEUTROPHILS % (AUTO) 63.4 % (43.0-81.0); PLATELET COUNT (AUTO) 197 /CMM (150-450); RED BLOOD CELL COUNT(AUTO) 4.03 MIL/uL (4.5-6.0); WHITE BLOOD COUNT (AUTO) 8.5 K/uL (4.3-11.0)
--- NOTE | 2018-04-06 11:17 | NUR ---
BED 313-1 MS
[2018-04-06 11:26] LABS: CALCIUM, SERUM 9.4 mg/dL (8.5-10.1); CARBON DIOXIDE 33 mmol/L (21-32); CHLORIDE 107 mmol/L (98-107); CREATININE 1.2 mg/dL (0.6-1.3); GLUCOSE 85 mg/dL (74-106); POTASSIUM 4.4 mmol/L (3.5-5.1); SODIUM SERUM 142 mmol/L (136-145); UREA NITROGEN, BLOOD 31 mg/dL (7-18)
[2018-04-06] MEDS ORDERED: VANCOMYCIN 1 GM in IV D5W 250 ML IV ONE (11:30)
[2018-04-06 11:32] LABS: ALANINE AMINOTRANSFERASE 11 U/L (12-78); ALBUMIN 2.7 g/dL (3.4-5.0); ALKALINE PHOSPHATASE 32 U/L (46-116); ASPARTATE AMINOTRANSFERASE 14 U/L (15-37); BILIRUBIN,DIRECT 0.1 mg/dL (0.0-0.2); BILIRUBIN,TOTAL 0.3 mg/dL (0.2-1.0); TOTAL PROTEIN, SERUM 6.9 g/dL (6.4-8.2)
--- NOTE | 2018-04-06 11:43 | NUR ---
GROUP PAGED, MANAGER WAREHOUSE
--- NOTE | 2018-04-06 11:56 | NUR ---
REPORT GIVEN TO TIMUR MADISON FOR JEANNETTE.
[2018-04-06 13:00] VITALS: BP 156/90
--- NOTE | 2018-04-06 13:00 | NUR ---
SYRUP MAKER COOK NOTES RECEIVED PT FROM E.R. STAFF, AWAKE, ALERT AND ORIENTED, NO COMPLAINT OF PAIN, RESPIRATIONS NORMAL AND NOT LABORED, ASSISTED TO BED, MADE COMFORTABLE, ROOM SET UP ORIENTATION PROVIDED, VERBALIZED UNDERSTANDING, VITAL SIGNS TAKEN AND RECORDED, NEEDS ATTENDED.
--- NOTE | 2018-04-06 13:37 | NUR ---
TRANSFERRED PATIENT VIA GURNEY ACCOMPANIED BY EMT AND RN IN NO APARENT DISTRESS NOTED, VIA ACLS PROTOCOL
[2018-04-06] MEDS ORDERED: FEE PK DOSING 1 MIN EA MC ONE (13:46)
[2018-04-06 16:00] VITALS: BP 118/64
[2018-04-06] MEDS ORDERED: NITROGLYCERIN 0.4 MG/TAB BOTTLE SL SCH (16:30)
[2018-04-06] MEDS ORDERED: MAGNESIUM HYDROXIDE 30 ML UDC PO PRN (16:30)
[2018-04-06] MEDS ORDERED: NA PHOS,M-B/NA PHOS,DI-BA 1 EA ENEMA RC PRN (16:30)
[2018-04-06] MEDS ORDERED: TRAMADOL HCL 50 MG TABLET PO PRN (16:30)
[2018-04-06] MEDS ORDERED: METOPROLOL TARTRATE 25 MG TABLET PO SCH (17:00)
[2018-04-06] MEDS: BACLOFEN (10 MG) 10 MG TABLET PO SCH (17:23)
[2018-04-06] MEDS: METOPROLOL TARTRATE 25 MG TABLET PO SCH (17:23)
[2018-04-06] MEDS: CALCIUM CARB 250MG /VITAMIN D 1 UDTAB PO SCH (17:24)
--- NOTE | 2018-04-06 18:50 | NUR ---
OTOLARYNGOLOGY SURGEON NOTES PT IN BED, RESTING, DENIES PAIN, RESPIRATIONS NORMAL, CALL LIGHT WITHIN REACH, PM MEDS GIVEN ORDERED, PT SEEN BY DR. WALLACE, TOLERATING CURRENT DIET WELL, NEEDS ATTENDED.
--- NOTE | 2018-04-06 19:15 | NUR ---
DYSLEXIA TEACHER NOTE RECEIVED PT IN STABLE CONDITION A&O X4, ABLE TO MAKE NEEDS KNOWN. NO SIGNS OF SOB OR DISTRESS. NO C/O PAIN. CURRENTLY RESTING IN BED. MONITOR READING AT SR 74. SAFETY PRECAUTIONS IN PLACE: BED LOW, LOCKED, UPPER RAILS UP, AND CALL LIGHT WITHIN REACH. WILL CONT TO MONITOR.
[2018-04-06 20:52] VITALS: BP 138/66
[2018-04-06] MEDS: SIMVASTATIN 10 MG TABLET PO SCH (21:20)
[2018-04-06] MEDS: LEVETIRACETAM (250 MG) 250 MG TABLET PO SCH (21:20)
[2018-04-07] MEDS: ACETAMINOPHEN 325 MG TABLET PO PRN ×2 (04:17→21:19)
[2018-04-07] MEDS: VANCOMYCIN 1 GM in IV D5W 250 ML IV SCH ×2 (04:18→23:20)
--- NOTE | 2018-04-07 06:20 | NUR ---
MOTOR AND GENERATOR ASSEMBLER NOTE PT IN STABLE CONDITION A&O X4, ABLE TO MAKE NEEDS KNOWN. NO SIGNS OF SOB OR DISTRESS. NO C/O PAIN. CURRENTLY RESTING IN BED. MONITOR READING AT SR 76. SAFETY PRECAUTIONS IN PLACE: BED LOW, LOCKED, UPPER RAILS UP, AND CALL LIGHT WITHIN REACH. WILL CONT TO MONITOR AND ENDORSE TO NEXT SHIFT FOR JEANNETTE.
--- NOTE | 2018-04-07 07:50 | NUR ---
SALESPERSON FURS OPENING NOTES RECEIVED PATIENT IN STABLE CONDITION. IN NO APPARENT DISTRESS. BEDSIDE RAILS ARE UPX2. BED IS LOCKED AND LOWERED. CALL LIGHT IS WITHIN REACH. IV LINE IS INTACT AND PATENT. WILL CONTINUE TO MONITOR PATIENT.
[2018-04-07 07:58] LABS: CALCIUM, SERUM 8.9 mg/dL (8.5-10.1); CARBON DIOXIDE 29 mmol/L (21-32); CHLORIDE 107 mmol/L (98-107); CREATININE 1.2 mg/dL (0.6-1.3); GLUCOSE 94 mg/dL (74-106); POTASSIUM 4.2 mmol/L (3.5-5.1); SODIUM SERUM 146 mmol/L (136-145); UREA NITROGEN, BLOOD 30 mg/dL (7-18)
[2018-04-07] MEDS: LEVETIRACETAM (250 MG) 250 MG TABLET PO SCH ×2 (08:18→21:17)
[2018-04-07] MEDS: BACLOFEN (10 MG) 10 MG TABLET PO SCH ×2 (08:18→16:09)
[2018-04-07] MEDS: CYANOCOBALAMIN 100 MCG TABLET PO SCH (08:18)
[2018-04-07] MEDS: MULTIVIT W/MINERALS 1 TAB TABLET PO SCH (08:18)
[2018-04-07] MEDS: ASPIRIN 81 MG TAB.CHEW PO SCH (08:18)
[2018-04-07] MEDS: CALCIUM CARB 250MG /VITAMIN D 1 UDTAB PO SCH ×2 (08:18→16:09)
[2018-04-07] MEDS: TRAMADOL HCL 50 MG TABLET PO SCH (08:19)
[2018-04-07] MEDS: BUDESONIDE 3 MG CAP.SR.24H PO SCH (08:20)
[2018-04-07] MEDS: VALSARTAN 40 MG TABLET PO SCH (08:21)
[2018-04-07] MEDS: METOPROLOL TARTRATE 25 MG TABLET PO SCH ×2 (08:21→16:12)
[2018-04-07] MEDS: Z GUARD REMEDY 2 OZ OINT TP SCH (08:24)
[2018-04-07 08:40] VITALS: BP_SYST 145; BP_DIAS 177; BP_DIAS 77
[2018-04-07] MEDS ORDERED: CHOLECALCIFEROL (VITAMIN D 3) 400 UNIT TABLET PO SCH (09:00)
[2018-04-07] MEDS ORDERED: FUROSEMIDE 20 MG TABLET PO SCH (09:00)
[2018-04-07] MEDS ORDERED: ACETAMINOPHEN 325 MG TABLET PO PRN (10:30)
[2018-04-07] MEDS: DIVALPROEX SODIUM 250 MG TABLET.DR PO SCH ×2 (13:12→21:17)
[2018-04-07 16:00] VITALS: BP 148/69
--- NOTE | 2018-04-07 18:42 | NUR ---
MS RN CLOSING NOTES PATIENT IS IN STABLE CONDITION. IN NO APPARENT DISTRESS. BEDSIDE RAILS ARE UPX2. BED IS LOCKED AND LOWERED. CALL LIGHT IS WITHIN REACH. IV LINE IS INTACT AND PATENT. ALL NEEDS WERE MET. WILL ENDORSE CARE TO PATIENT APPOINTMENT COORDINATOR NURSE FOR JEANNETTE.
--- NOTE | 2018-04-07 19:15 | NUR ---
MS RN NOTE RECEIVED PT IN STABLE CONDITION, A&O X4, ABLE TO MAKE NEEDS KNOWN. PT IS CURRENTLY IN BED WATCHING TV. NO SIGNS OF SOB OR DISTRESS. S/P DEBRIDEMENT SITE IN TACT WITH NO VISIBLE DRAINAGE. NO C/O PAIN. BREATHING EVEN AND UNLABORED. SAFETY PRECAUTIONS IN PLACE: BED LOW, LOCKED, UPPER RAILS UP X2. WILL CONT TO MONITOR.
[2018-04-07 20:17] VITALS: BP 110/70
[2018-04-07] MEDS: FUROSEMIDE 20 MG TABLET PO SCH (21:17)
[2018-04-07] MEDS: SIMVASTATIN 10 MG TABLET PO SCH (21:17)
--- NOTE | 2018-04-07 21:19 | NUR ---
MS RN NOTE PT C/O PAIN 2/10 AT DEBRIDEMENT SITE. TYLENOL 650 MG GIVEN PO.
[2018-04-08] MEDS: ACETAMINOPHEN 325 MG TABLET PO PRN ×2 (05:24→20:51)
--- NOTE | 2018-04-08 05:24 | NUR ---
MS RN NOTE PT. C/O PAIN 04/18 LOCATED AT [facility] SITE. PRN TYLENOL 650 MG GIVEN.
--- NOTE | 2018-04-08 06:22 | NUR ---
MS RN NOTE PT IN STABLE CONDITION, A&O X4, ABLE TO MAKE NEEDS KNOWN. PT IS CURRENTLY IN BED RESTING. NO SIGNS OF SOB OR DISTRESS. S/P DEBRIDEMENT SITE IN TACT WITH NO VISIBLE DRAINAGE. NO C/O PAIN. BREATHING EVEN AND UNLABORED. ALL CURRENT NEEDS MET. SAFETY PRECAUTIONS IN PLACE: BED LOW, LOCKED, UPPER RAILS UP X2. WILL CONT TO MONITOR AND ENDORSE TO NEXT SHIFT FOR JEANNETTE.
--- NOTE | 2018-04-08 07:30 | NUR ---
RN OPENING NOTES RECEIVED PATIENT IN BED RESTING. A/OX3-4, ABLE TO MAKE NEEDS KNOWN. NOT IN ANY FORM OF DISTRESS, NO SOB. DENIED PAIN OR DISCOMFORT AT THIS TIME. IV ACCESS INTACT AND PATENT. KEPT PATIEN TSAFE AND COMFORTABLE. BED IN LOW/LOCKED POSITION, SIDERAILS UPX2, CALL LIGHT IN REACH. WILL CONTINUE TO MONIOTR ACCORDINGLY.
[2018-04-08 07:51] LABS: CALCIUM, SERUM 9.1 mg/dL (8.5-10.1); CARBON DIOXIDE 30 mmol/L (21-32); CHLORIDE 107 mmol/L (98-107); CREATININE 1.3 mg/dL (0.6-1.3); GLUCOSE 88 mg/dL (74-106); POTASSIUM 4.2 mmol/L (3.5-5.1); SODIUM SERUM 144 mmol/L (136-145); UREA NITROGEN, BLOOD 30 mg/dL (7-18)
[2018-04-08 08:00] VITALS: BP 134/76
[2018-04-08] MEDS: MULTIVIT W/MINERALS 1 TAB TABLET PO SCH (09:14)
[2018-04-08] MEDS: ASPIRIN 81 MG TAB.CHEW PO SCH (09:15)
[2018-04-08] MEDS: LEVETIRACETAM (250 MG) 250 MG TABLET PO SCH ×2 (09:15→20:50)
[2018-04-08] MEDS: DIVALPROEX SODIUM 250 MG TABLET.DR PO SCH ×2 (09:15→20:50)
[2018-04-08] MEDS: CYANOCOBALAMIN 100 MCG TABLET PO SCH (09:16)
[2018-04-08] MEDS: CALCIUM CARB 250MG /VITAMIN D 1 UDTAB PO SCH ×2 (09:16→16:54)
[2018-04-08] MEDS: FUROSEMIDE 20 MG TABLET PO SCH ×2 (09:17→16:53)
[2018-04-08] MEDS: BACLOFEN (10 MG) 10 MG TABLET PO SCH ×2 (09:17→16:52)
[2018-04-08] MEDS: VALSARTAN 40 MG TABLET PO SCH (09:18)
[2018-04-08] MEDS: METOPROLOL TARTRATE 25 MG TABLET PO SCH ×2 (09:18→16:53)
[2018-04-08] MEDS: TRAMADOL HCL 50 MG TABLET PO SCH (09:21)
[2018-04-08] MEDS: BUDESONIDE 3 MG CAP.SR.24H PO SCH (09:46)
[2018-04-08] MEDS: Z GUARD REMEDY 2 OZ OINT TP SCH (11:39)
--- NOTE | 2018-04-08 11:40 | NUR ---
RN NOTES SPECIMEN FOR BIOPSY SENT TO LAB, RECEIVED BY
[2018-04-08] MEDS: CHOLECALCIFEROL 1,000 UNIT TABLET (VIT D3) PO SCH (14:41)
[2018-04-08 16:00] VITALS: BP 129/74
[2018-04-08] MEDS: VANCOMYCIN 1 GM in IV D5W 250 ML IV SCH (16:49)
--- NOTE | 2018-04-08 19:30 | NUR ---
rn closing notes patient in stable condition. all needs attended and provided. all due medications administered as ordered. turned and reposition every 2hrs as needed. kept patient safe and comfortable. bed in low/locked position, siderails upx2, hob elevated, call light in reach. endorsed to night rn for lane.
[2018-04-08 20:00] VITALS: BP 130/64
[2018-04-08] MEDS: SIMVASTATIN 10 MG TABLET PO SCH (20:54)
[2018-04-09 06:39] LABS: CALCIUM, SERUM 8.8 mg/dL (8.5-10.1); CARBON DIOXIDE 30 mmol/L (21-32); CHLORIDE 107 mmol/L (98-107); CREATININE 1.3 mg/dL (0.6-1.3); GLUCOSE 89 mg/dL (74-106); POTASSIUM 4.1 mmol/L (3.5-5.1); SODIUM SERUM 145 mmol/L (136-145); UREA NITROGEN, BLOOD 31 mg/dL (7-18)
--- NOTE | 2018-04-09 06:39 | NUR ---
MS RN NOTES AWAKE & RESPONSIVE. NOT IN ANY DISTRESS. NO SOB NOTED. DENIES ANY PAIN OR DISCOMFORT AT THIS TIME. WITH IV-HL PATENT & INTACT. WITH SITTER AT BEDSIDE. MONITORED ACCORDINGLY. CALL LIGHT WITHIN REACH. BED IN LOWEST POSITION. SR UP X 2 FOR SAFETY. WILL CONTINUE TO MONITOR.
--- NOTE | 2018-04-09 07:24 | NUR ---
MS RN OPENING NOTES RECEIVED PT LAYING IN BED, SLEEPING COMFORTABLY. PT IS EASILY AROUSABLE. PT IS A/O X4, AFEBRILE. RESPIRATIONS ARE EVEN AND UNLABORED, NOT IN ANY ACUTE DISTRESS NOTED. PT DENIES ANY PAIN AT THIS TIME, NO C/O SOB, N/V NOTED. IV ACCESS TO LAC INTACT, NO INFILTRATION NOTED. DRESSING KEPT CLEAN AND DRY. SAFETY MEASURES ARE IN PLACE. INSTRUCTED PT TO USE CALL LIGHT WHEN ASSISTANCE IS NEEDED, CALL LIGHT IS LEFT WITHIN REACH. WILL MONITOR THROUGHOUT SHIFT FOR CONTINUITY OF CARE.
[2018-04-09 08:00] VITALS: BP 136/70
[2018-04-09] MEDS: CHOLECALCIFEROL 1,000 UNIT TABLET (VIT D3) PO SCH (08:26)
[2018-04-09] MEDS: CYANOCOBALAMIN 100 MCG TABLET PO SCH (08:26)
[2018-04-09] MEDS: CALCIUM CARB 250MG /VITAMIN D 1 UDTAB PO SCH ×2 (08:26→16:46)
[2018-04-09] MEDS: FUROSEMIDE 20 MG TABLET PO SCH ×2 (08:26→16:46)
[2018-04-09] MEDS: DIVALPROEX SODIUM 250 MG TABLET.DR PO SCH ×2 (08:27→21:14)
[2018-04-09] MEDS: VALSARTAN 40 MG TABLET PO SCH (08:27)
[2018-04-09] MEDS: LEVETIRACETAM (250 MG) 250 MG TABLET PO SCH ×2 (08:27→21:14)
[2018-04-09] MEDS: ASPIRIN 81 MG TAB.CHEW PO SCH (08:27)
[2018-04-09] MEDS: TRAMADOL HCL 50 MG TABLET PO SCH (08:27)
[2018-04-09] MEDS: MULTIVIT W/MINERALS 1 TAB TABLET PO SCH (08:27)
[2018-04-09] MEDS: BACLOFEN (10 MG) 10 MG TABLET PO SCH ×2 (08:27→16:46)
[2018-04-09] MEDS: METOPROLOL TARTRATE 25 MG TABLET PO SCH ×2 (08:28→16:47)
[2018-04-09] MEDS: BUDESONIDE 3 MG CAP.SR.24H PO SCH (08:34)
[2018-04-09] MEDS: Z GUARD REMEDY 2 OZ OINT TP SCH (08:35)
[2018-04-09] MEDS: VANCOMYCIN 1 GM in IV D5W 250 ML IV SCH (10:00)
--- NOTE | 2018-04-09 11:05 | NUR ---
MS RN NOTES-- DR. CASTORENA PERFORMED WOUND CARE TO BLE. PICTURES TAKEN AND PLACED IN CHART. PT TOLERATED DRESSING CHANGE WELL.
[2018-04-09 16:00] VITALS: BP 127/69
--- NOTE | 2018-04-09 16:59 | NUR ---
MS RN NOTES-- PER YESSENIA JOHNSON, PT WILL BE DISCHARGED TOMORROW BACK TO [facility]. PICTURES TAKEN TO BLE. PER DR. CASTORENA, DRESSING DOESNT NEED TO BE CHANGE TILL HE GETS TO THE FACILITY. PER DR. CASTORENA, HE WILL PERFORM DRESSING CHANGE.
--- NOTE | 2018-04-09 18:38 | NUR ---
MS RN CLOSING NOTES ALL DUE MEDS GIVEN, NEEDS MET AND RENDERED. PT IS A/O X4, AFEBRILE. RESPIRATIONS ARE EVEN AND UNLABORED, NOT IN ANY ACUTE DISTRESS NOTED. PT DENIES ANY PAIN, SOB, N/V. IV SITE TO RIGHT HAND INTACT, NO INFILTRATION NOTED. DRESSING KEPT CLEAN AND DRY. SAFETY MEASURES ARE IN PLACE. REMINDED PT TO USE CALL LIGHT WHEN ASSISTANCE IS NEEDED, CALL LIGHT IS LEFT WITHIN REACH. WILL ENDORSE TO NEXT SHIFT FOR CONTINUITY OF CARE.
--- NOTE | 2018-04-09 19:52 | NUR ---
MS/RN OPENING NOTES PT RECEIVED AWAKE, A/OX4. ON ROOM AIR, BREATHING EVEN AND UNLABORED. DENIES SOB AND PAIN AT THIS TIME. DRESSINGS TO BILATERAL LOWER EXTREMITIES C/D/I AND WRAPPED WITH MANUELA BANDAGE. REFUSING TO BE ELEVATED ON PILLOW AT THIS TIME DESPITE EDUCATION. BED IN LOW/LOCKED POSITION WITH CALL LIGHT IN REACH. BILATERAL UPPER SIDE RAILS IN PLACE. ABLE TO MAKE NEEDS KNOWN. PLAN FOR DC BACK TO SNF TOMORROW, PT AND POA AWARE. WILL CONTINUE TO MONITOR
[2018-04-09 20:00] VITALS: BP 133/74
[2018-04-09 20:16] VITALS: BP 133/74
[2018-04-09] MEDS: ACETAMINOPHEN 325 MG TABLET PO PRN (21:14)
[2018-04-09] MEDS: SIMVASTATIN 10 MG TABLET PO SCH (21:14)
[2018-04-10] MEDS: VANCOMYCIN 1 GM in IV D5W 250 ML IV SCH (05:02)
[2018-04-10 07:35] LABS: CALCIUM, SERUM 9.3 mg/dL (8.5-10.1); CARBON DIOXIDE 31 mmol/L (21-32); CHLORIDE 105 mmol/L (98-107); CREATININE 1.4 mg/dL (0.6-1.3); GLUCOSE 114 mg/dL (74-106); POTASSIUM 4.4 mmol/L (3.5-5.1); SODIUM SERUM 143 mmol/L (136-145); UREA NITROGEN, BLOOD 32 mg/dL (7-18)
--- NOTE | 2018-04-10 07:40 | NUR ---
MS RN OPENING NOTES RECEIVED PT LAYING IN BED W/ HOB SLIGHTLY ELEVATED. PT RESTING COMFORTABLY. A/O X4, AFEBRILE. RESPIRATIONS ARE EVEN AND UNLABORED, NOT IN ANY ACUTE DISTRESS NOTED. DENIES ANY PAIN, NO C/O SOB, N/V. IV SITE TO RIGHT HAND INTACT, NO INFILTRATION NOTED. DRESSING KEPT CLEAN AND DRY. SAFETY MEASURES ARE IN PLACE. INSTRUCTED PT TO USE CALL LIGHT WHEN ASSISTANCE IS NEEDED, CALL LIGHT IS LEFT WITHIN REACH. WILL MONITOR THROUGHOUT SHIFT FOR CONTINUITY OF CARE.
--- NOTE | 2018-04-10 07:45 | NUR ---
MS/RN CLOSING NOTES PT WITH EYES CLOSED RESTING COMFORTABLY IN BED. SEMI FOWLERS. OPENS EYES TO NAME. ON ROOM AIR, BREATHING EVEN AND UNLABORED. DENIES SOB AND PAIN. DRESSINGS TO BLE C/D/I. IV TO RIGHT WRIST INFILTRATED, NEW IV INSERTED TO LFA #22. NO SIGNIFICANT CHANGES OVERNIGHT. ALL NEEDS MET. BED REMAINS IN LOW/LOCKED POSITION WITH CALL LIGHT IN REACH. BILATERAL UPPER SIDE RAILS IN PLACE. ENDORSED TO DAY SHIFT RN JEANNETTE.
[2018-04-10 08:00] VITALS: BP 123/66
[2018-04-10] MEDS: LEVETIRACETAM (250 MG) 250 MG TABLET PO SCH (08:46)
[2018-04-10] MEDS: DIVALPROEX SODIUM 250 MG TABLET.DR PO SCH (08:46)
[2018-04-10] MEDS: BUDESONIDE 3 MG CAP.SR.24H PO SCH (08:46)
[2018-04-10] MEDS: CALCIUM CARB 250MG /VITAMIN D 1 UDTAB PO SCH (08:47)
[2018-04-10] MEDS: VALSARTAN 40 MG TABLET PO SCH (08:47)
[2018-04-10 08:48] VITALS: BP 123/66
[2018-04-10] MEDS: METOPROLOL TARTRATE 25 MG TABLET PO SCH (08:48)
[2018-04-10] MEDS: TRAMADOL HCL 50 MG TABLET PO SCH (08:50)
[2018-04-10] MEDS: MULTIVIT W/MINERALS 1 TAB TABLET PO SCH (08:50)
[2018-04-10] MEDS: FUROSEMIDE 20 MG TABLET PO SCH (08:51)
[2018-04-10] MEDS: CHOLECALCIFEROL 1,000 UNIT TABLET (VIT D3) PO SCH (08:51)
[2018-04-10] MEDS: BACLOFEN (10 MG) 10 MG TABLET PO SCH (08:52)
[2018-04-10] MEDS: ASPIRIN 81 MG TAB.CHEW PO SCH (08:52)
[2018-04-10] MEDS: CYANOCOBALAMIN 100 MCG TABLET PO SCH (08:52)
[2018-04-10] MEDS: Z GUARD REMEDY 2 OZ OINT TP SCH (08:53)
--- NOTE | 2018-04-10 12:30 | NUR ---
MS RN NOTES-- EXPLAINED DISCHARGE PAPERWORK TO PT WITH VERBAL AND WRITTEN UNDERSTANDING. PHOTOS OF WOUNDS TO BILATERAL LEGS WERE TAKEN YESTERDAY UPON DRESSING CHANGE WITH DR. CASTORENA. PER DR. CASTORENA TO NOT CHANGE DRESSING UNTIL HE SEES PT AT [facility].
--- NOTE | 2018-04-10 13:18 | NUR ---
MS RN NOTES-- [facility], SPOKE W/ GRICELDA BROOKS FOR REPORT. PT WILL BE GOING TO BED 55-B.
--- NOTE | 2018-04-10 15:06 | NUR ---
MS BLIND STITCH MACHINE OPERATOR NOTE PT DISCHARGED TO [facility] IN STABLE CONDITION. PT IS A/O X4, AFEBRILE. RESPIRATIONS ARE EVEN AND UNLABORED, NOT IN ANY ACUTE DISTRESS NOTED. PT DENIES ANY PAIN AT THIS TIME, NO C/O OF SOB,N/V. PUPILS ARE REACTIVE TO LIGHT, BILATERAL HAND NET WEB DEVELOPER ARE STRONG AND EQUAL. ABDOMEN IS SOFT AND NONDISTENDED, BOWEL SOUNDS ARE PRESENT IN ALL 4 QUADRANTS UPON AUSCULTATION. DENIES ANY BLADDER DISCOMFORT. PER TODD FROM SNF TO KEEP IV INTACT D/T PT CONTINUING IV ATB. DRESSING KEPT CLEAN AND DRY. ID BAND REMOVED. DRESSINGS TO BLE KEPT INTACT PER DR. CASTORENA UNTIL HE SEES THE PT AT THE [facility]. PICTURES TAKEN PRIOR TO DRESSING CHANGE YESTERDAY 04/09/18. BEDSIDE ENDORSEMENT GIVEN TO EMT PERSONNEL. ALL BELONGINGS SENT WITH PT AND LIST SIGNED. PT LEFT IN STABLE CONDITION VIA [facility].
== END 2018-04-10 15:07 | DRG 264 ==
LOC: ER 10:13 → TELE 11:57 → MED 12:39 → TELE 04-07 00:39 → MED 04-07 12:47
PROVIDERS: ADMIT Internal Medicine Nephrology; ATTEND Internal Medicine Nephrology
PROC: 0JBR0ZZ Excision of Left Foot Subcutaneous Tissue and Fascia, Open Approach (ICD-10-PCS; principal; 2018-04-07)
PROC: 0HB1XZX Excision of Face Skin, External Approach, Diagnostic (ICD-10-PCS; 2018-04-08)
PROC: 0HB0XZX Excision of Scalp Skin, External Approach, Diagnostic (ICD-10-PCS; 2018-04-08)
PROC: 0HB4XZX Excision of Neck Skin, External Approach, Diagnostic (ICD-10-PCS; 2018-04-08)
DX: I87.332 Chronic venous hypertension (idiopathic) with ulcer and inflammation of left lower extremity (principal); L03.116 Cellulitis of left lower limb; K50.90 Crohn's disease, unspecified, without complications; L97.829 Non-pressure chronic ulcer of other part of left lower leg with unspecified severity; L03.115 Cellulitis of right lower limb; K21.9 Gastro-esophageal reflux disease without esophagitis; N18.9 Chronic kidney disease, unspecified; I12.9 Hypertensive chronic kidney disease with stage 1 through stage 4 chronic kidney disease, or unspecified chronic kidney disease; L98.9 Disorder of the skin and subcutaneous tissue, unspecified; I25.10 Atherosclerotic heart disease of native coronary artery without angina pectoris; I87.2 Venous insufficiency (chronic) (peripheral); I73.9 Peripheral vascular disease, unspecified; Z87.891 Personal history of nicotine dependence; Z79.899 Other long term (current) drug therapy; Z79.82 Long term (current) use of aspirin
CPT/HCPCS: 36415; 71045-TC; 80048-TC; 80076-TC; 80202-TC; 83605-TC; 84484-TC; 85025-TC; 85730-TC; 87040-TC; 87070-TC; 87081-TC; 87186-TC; 88307-TC; A6253; A6403; G0378; J3370; J7030; J7060

== ENCOUNTER 2018-06-26 23:04 | Inpatient (IN) | payer MEDICARE, MEDICAID ==
[~2018-06-26] VITALS: Ht 175.3 cm; Wt 97.5 kg
--- NOTE | 2018-06-26 23:09 | NUR ---
PT BIBPA. C/O "HAVING ABD PAIN AND BLOOD IN STOOL X2 DAYS." -ACUTE DISTRESS. PT ALERT AND RESPONSIVE TO PAIN/TOUCH. -SOB
[2018-06-26] MEDS ORDERED: IV NS 0.9% 500 ML BAG IV ONE (23:30)
[2018-06-26] MEDS ORDERED: methylPREDNISolone SOD SUCC 125 MG/2ML VIAL IV ONE (23:30)
[2018-06-26] MEDS ORDERED: FAMOTIDINE/PF INJ 20 MG/2 ML VIAL IV ONE (23:30)
[2018-06-26 23:42] LABS: BASOPHILS # (AUTO) 0.1 /CMM (0.0-0.2); BASOPHILS % (AUTO) 0.7 % (0.0-2.0); EOSINOPHILS % (AUTO) 7.8 % (0.0-6.0); HEMATOCRIT 27 % (39-51); HEMOGLOBIN 8.6 g/dL (13.5-17.5); LYMPHOCYTES # (AUTO) 1.8 /CMM (0.8-4.8); LYMPHOCYTES % (AUTO) 20.7 % (20.0-44.0); MEAN CORPUSCULAR HGB CONC 32 g/dl (31.0-36.0); MEAN CORPUSCULAR VOLUME 90 fL (80-96); MONOCYTES # (AUTO) 0.9 /CMM (0.1-1.30); NEUTROPHILS # (AUTO) 5.4 /CMM (1.8-8.9); NEUTROPHILS % (AUTO) 60.8 % (43.0-81.0); PLATELET COUNT (AUTO) 223 /CMM (150-450); RED BLOOD CELL COUNT(AUTO) 2.96 MIL/uL (4.5-6.0); WHITE BLOOD COUNT (AUTO) 8.8 K/uL (4.3-11.0)
[2018-06-26 23:49] LABS: OCCULT BLOOD STOOL POSITIVE (NEGATIVE)
[2018-06-26 23:55] LABS: ALANINE AMINOTRANSFERASE 14 U/L (12-78); ALBUMIN 2.1 g/dL (3.4-5.0); ALKALINE PHOSPHATASE 30 U/L (46-116); ASPARTATE AMINOTRANSFERASE 28 U/L (15-37); BILIRUBIN,DIRECT 0.1 mg/dL (0.0-0.2); BILIRUBIN,TOTAL 0.2 mg/dL (0.2-1.0); CALCIUM, SERUM 9.1 mg/dL (8.5-10.1); CARBON DIOXIDE 33 mmol/L (21-32); CHLORIDE 108 mmol/L (98-107); CREATININE 1.3 mg/dL (0.6-1.3); GLUCOSE 117 mg/dL (74-106); LIPASE 191 U/L (73-393); POTASSIUM 4.1 mmol/L (3.5-5.1); SODIUM SERUM 147 mmol/L (136-145); TOTAL PROTEIN, SERUM 5.6 g/dL (6.4-8.2); UREA NITROGEN, BLOOD 23 mg/dL (7-18)
[2018-06-27] VITALS (12 sets, daily range): BP systolic 99–123; BP diastolic 49–69
[2018-06-27] MEDS ORDERED: ONDANSETRON HCL/PF - ER 4 MG/2 ML VIAL IV ONE
[2018-06-27] MEDS ORDERED: IOHEXOL-300 100 ML VIAL IV ONE (00:18)
[2018-06-27] MEDS ORDERED: NITROGLYCERIN PACKET 1 GM PACKET TD ONE (00:30)
[2018-06-27] MEDS ORDERED: NITROGLYCERIN PACKET 1 GM PACKET ONE (00:47)
--- NOTE | 2018-06-27 03:35 | NUR ---
BIOMEDICAL EQUIPMENT SPECIALISTREAL ESTATE INVESTOR NOTES Patient came to unit via gurney for GI bleed. Patient is alert, oriented x 4, able to make needs known. Breathing even and unlabored, not in any distress, on 2L O2 via nasal cannula saturating 100%. No complaints at this time. Patient has ongoing transfusion of RBC at 200mL/hr with no signs of adverse effects as per ER nurse. Blood transfusion was started down in ER at 0151 as per report. Skin assessment done- multiple skin issues noted. Wound on left lower leg cleaned and dressing changed. Pictures taken and attached to chart. Tele monitor in place- sinus rhythm 75 with PVC's. Oriented to call gonzalez- placed within easy reach. Bed in lowest, locked position. Side rails x 2 up and padded for seizure precaution. Will continue to monitor accordingly
--- NOTE | 2018-06-27 04:03 | NUR ---
RN NOTES Radiology at bedside for bladder ultrasound
--- NOTE | 2018-06-27 04:30 | NUR ---
RN NOTES Blood transfusion completed with no adverse effect. Unable to end it in [facility] as there is no option to END the transfusion. Patient has no complaints at this time
--- NOTE | 2018-06-27 05:35 | NUR ---
RN NOTES Called Dr. Flaherty for admitting orders. Talked to the exchange to be connect call to Dr. As per exchange, call went to voicemail. Said that she will leave a message to the and wait for the to call back
--- NOTE | 2018-06-27 06:20 | NUR ---
RN NOTES Talked to Dr. Flaherty regarding admission orders. As per Dr. Flaherty, "I will put it in"
--- NOTE | 2018-06-27 06:55 | NUR ---
SALVAGE WORKER CLOSING NOTES Patient sleeping comfortable in bed, easily woken. Breathing even and unlabored. Not in any distress. IV access in LAC g#20 intact and patent. Tele monitor in place, sinus rhythm 67. No bowel movement since patient came up the unit. All needs attended to. Safety measures in place; call light within reach. Bed in low, locked position. Will endorse JEANNETTE to oncoming RN.
--- NOTE | 2018-06-27 07:45 | NUR ---
MINING MANAGER OPENING NOTES RECEIVED PT RESTING ON BED. ASLEEP, EASILY AROUSED, A/O X4. TOLERATING RA, WITH NO ACUTE RESPIRATORY DISTRESS NOTED. ON TELEMONITORING WITH SR, HR OF 65. PT DENIES PAIN AT THIS MOMENT. PIV TO LAC G20 SL, FLUSHED WITH NS, INTACT AND OPERATIONAL. PT DENIES ANY CONCERNS AND QUESTIONS AT THIS MOMENT WELL. PT KEPT COMFORTABLE IN BED. HOB ELEVATED. CALL LIGHT AND FLUID KEPT WITHIN REACH. PT'S BED IN LOWEST, LOCKED POSITION WITH SR X2. WILL CONTINUE PLAN OF CARE. Addendum: 06/27/18 at 0808 by ALMA DUPREE RN CORRECTION: PT ON O2 AT 2LPM VIA NC NOT TOLERATING RA.
[2018-06-27] MEDS ORDERED: ACETAMINOPHEN 325 MG TABLET PO PRN ×2 (08:00)
[2018-06-27] MEDS ORDERED: ONDANSETRON HCL/PF 4 MG/2 ML VIAL IVP PRN (08:00)
[2018-06-27] MEDS ORDERED: ZOLPIDEM TARTRATE 5 MG TABLET PO PRN (08:00)
[2018-06-27] MEDS ORDERED: MAGNESIUM HYDROXIDE 30 ML UDC PO PRN ×2 (08:00)
[2018-06-27] MEDS ORDERED: NITROGLYCERIN 0.4 MG/TAB BOTTLE SL PRN (08:00)
[2018-06-27] MEDS ORDERED: MAG HYDROX/AL HYDROX/SIMETH 30 ML UDC PO PRN (08:00)
[2018-06-27] MEDS ORDERED: NA PHOS,M-B/NA PHOS,DI-BA 1 EA ENEMA RC PRN (08:00)
[2018-06-27] MEDS: VALSARTAN 40 MG TABLET PO SCH (09:00)
[2018-06-27] MEDS ORDERED: ASPIRIN 81 MG TAB.CHEW PO SCH (09:00)
[2018-06-27] MEDS ORDERED: METOPROLOL TARTRATE 25 MG TABLET PO SCH (09:00)
[2018-06-27] MEDS: FUROSEMIDE 20 MG TABLET PO SCH (09:04)
[2018-06-27] MEDS: DIVALPROEX SODIUM 250 MG TABLET.DR PO SCH ×2 (09:04→16:48)
[2018-06-27] MEDS: CYANOCOBALAMIN 100 MCG TABLET PO SCH (09:04)
[2018-06-27] MEDS: LEVETIRACETAM (250 MG) 250 MG TABLET PO SCH ×2 (09:05→16:54)
[2018-06-27] MEDS: MULTIVIT W/MINERALS 1 TAB TABLET PO SCH (09:05)
[2018-06-27] MEDS: Z GUARD REMEDY 2 OZ OINT TP PRN ×2 (09:12→09:13)
[2018-06-27] MEDS: Z GUARD REMEDY 2 OZ OINT TP SCH (09:13)
[2018-06-27 09:22] LABS: BASOPHILS % (AUTO) 0.2 % (0.0-2.0); HEMATOCRIT 25 % (39-51); HEMOGLOBIN 8.1 g/dL (13.5-17.5); LYMPHOCYTES # (AUTO) 0.6 /CMM (0.8-4.8); LYMPHOCYTES % (AUTO) 6.5 % (20.0-44.0); MEAN CORPUSCULAR HGB CONC 32 g/dl (31.0-36.0); MEAN CORPUSCULAR VOLUME 84 fL (80-96); MONOCYTES # (AUTO) 0.2 /CMM (0.1-1.30); MONOCYTES % (AUTO) 1.6 % (2.0-12.0); NEUTROPHILS # (AUTO) 9.1 /CMM (1.8-8.9); NEUTROPHILS % (AUTO) 91.7 % (43.0-81.0); PLATELET COUNT (AUTO) 190 /CMM (150-450); RED BLOOD CELL COUNT(AUTO) 2.97 MIL/uL (4.5-6.0); WHITE BLOOD COUNT (AUTO) 9.9 K/uL (4.3-11.0)
--- NOTE | 2018-06-27 09:38 | NUR ---
GENERAL DISTILLERY WORKER NOTES CALLED PHARMACY SPOKE TO MARIANELA REGARDING BUDESONIDE PO/CAPSULES. NOT AVAILABLE YET AT THIS MOMENT STATED, WILL DELIER MEDICINE SOON. PT MADE AWARE. AWAITING FOR MEDICINE TO ARRIVE.
[2018-06-27 09:39] LABS: IRON, SERUM 168 ug/dl (50-175); TOTAL IRON BINDING CAPACITY 166 ug/dl (250-450)
[2018-06-27 09:41] LABS: ALANINE AMINOTRANSFERASE 13 U/L (12-78); ALBUMIN 1.9 g/dL (3.4-5.0); ALKALINE PHOSPHATASE 28 U/L (46-116); ASPARTATE AMINOTRANSFERASE 21 U/L (15-37); BILIRUBIN,TOTAL 0.6 mg/dL (0.2-1.0); CALCIUM, SERUM 8.3 mg/dL (8.5-10.1); CARBON DIOXIDE 28 mmol/L (21-32); CHLORIDE 109 mmol/L (98-107); CREATININE 1.4 mg/dL (0.6-1.3); GLUCOSE 159 mg/dL (74-106); PHOSPHORUS 4.2 mg/dL (2.5-4.9); POTASSIUM 4.2 mmol/L (3.5-5.1); SODIUM SERUM 145 mmol/L (136-145); UREA NITROGEN, BLOOD 28 mg/dL (7-18)
[2018-06-27 09:54] LABS: FERRITIN 70 ng/mL (8-388)
[2018-06-27] MEDS: BUDESONIDE 3 MG CAP.SR.24H PO SCH (10:35)
--- NOTE | 2018-06-27 11:20 | NUR ---
BUNG SEWER NOTES RECEIVED CALL FROM LAB, TROPONIN TRENDING DOWN FROM 3.403 TO [phone]. CN/AMAURY MADE AWARE AND STATED SCHEDULED CTCA WILL BE MOVED TOMORROW DUE TO PT'S INCREASED BUN AND CREA. WILL NOTIFY MD. WILL CONTINUE TO MONITOR PT.
[2018-06-27] MEDS: METOPROLOL TARTRATE 25 MG TABLET PO SCH ×2 (12:00→17:17)
--- NOTE | 2018-06-27 13:30 | NUR ---
JEWELRY DESIGNER NOTES MIDLINE G18 INSERTED TO RIGHT UPPER ARM/BASILIC VEIN, FLUSHED WITH NS, INTACT AND OPERATIONAL. WILL CONTINUE TO MONITOR.
--- NOTE | 2018-06-27 13:58 | NUR ---
PLATE MAKER ZINC NOTES INDUSTRIAL ROBOTICS MECHANIC CAROLANN CAME TO SEE AND EVALUATED PT. ORDERED TO CANCELL COLLECTION OF STOOL X3, JUST COLLECT ONCE. AND URINE COLLECTION, CLEAN CATCH FOR UA AND C&S. PT AWARE. CN MADE AWARE WELL.
[2018-06-27] MEDS ORDERED: IV NS 0.9% 1,000 ML BAG IV PRN (14:30)
[2018-06-27] MEDS ORDERED: PEG 3350/NA SULF,BICARB,CL/KCL 4,000 ML BOTTLE PO ONE (14:30)
[2018-06-27] MEDS ORDERED: MAGNESIUM CITRATE 296 ML BOTTLE PO ONE (14:30)
[2018-06-27] MEDS: IV NS 0.9% 1,000 ML IV PRN (15:08)
[2018-06-27] MEDS: NEXIUM 40 MG VIAL IV SCH (15:45)
[2018-06-27 16:02] LABS: HEMATOCRIT 24 % (39-51); HEMOGLOBIN 7.7 g/dL (13.5-17.5); MEAN CORPUSCULAR HGB CONC 33 g/dl (31.0-36.0); MEAN CORPUSCULAR VOLUME 85 fL (80-96); PLATELET COUNT (AUTO) 198 /CMM (150-450); RED BLOOD CELL COUNT(AUTO) 2.78 MIL/uL (4.5-6.0); WHITE BLOOD COUNT (AUTO) 9.3 K/uL (4.3-11.0)
[2018-06-27] MEDS: SUCRALFATE 1 G/10 ML UDC GT SCH ×2 (16:48→22:33)
[2018-06-27] MEDS ORDERED: PANTOPRAZOLE 40 MG VIAL IV SCH (17:00)
--- NOTE | 2018-06-27 18:47 | NUR ---
INFANT CHILDCARE PROVIDER CLOSING NOTES PT REMAINS RESTING ON BED. AWAKE WITH POA/JEFFERY BEDSIDE. PT A/O X4. ON SUPPLEMENTARY OXYGEN AT 2LPM VIA NC, WITH NO ACUTE RESPIRATORY DISTRESS NOTED. ON TELEMONITORING WITH SR, HR OF 78. PT DENIES PAIN AT THIS MOMENT. IVF NS AT 80ML/HR TO LAC G20, INTACT AND FLUID INFUSING WELL. ALL NEEDS AND CARE PROVIDED. PT KEPT COMFORTABLE IN BED. HOB ELEVATED. CALL LIGHT AND FLUID KEPT WITHIN REACH. PT'S BED IN LOWEST, LOCKED POSITION WITH SR X2. WILL ENDORSE TO INCOMING NIGHT NURSE FOR JEANNETTE.
--- NOTE | 2018-06-27 19:35 | NUR ---
TELE/RN NOTES RECEIVED PT. LYING IN BED. PT. IS AWAKE, ALERT AND ORIENTED X3. BREATHING EVEN AND UNLABORED ON 2LPM O2 VIA NC. NO SOB, RESPIRATORY DISTRESS OR COMPLAINTS OF PAIN NOTED AT THIS TIME. PT. WITH EXTERNAL COPIER OPERATOR PRESENT AND INTACT CURRENT RHYTHM = SINUS RHYTHM HR 62. PT. WITH LEFT AC 20 GAUGE IV SALINE LOCK PRESENT, PATENT AND INTACT.PT. WITH RIGHT UPPER ARM MIDLINE PRESENT, PATENT AND INTACT ADMINISTERING TO PT. NS @ 80 ML/HR. PT. WILL BE NPO AFTER MIDNIGHT PT. WILL BE GOING FOR EGD AND COLONOSCOPY TOMORROW. PER DAYSHIFT NURSE CONSENT SIGNED AND PLACED IN PT. CHART. PT. HAS BEGUN BOWEL PREP. PER DAYSHIFT NURSE PT. HAD 2 BOWEL MOVEMENTS TODAY BOTH NOTED TO CONTAIN DARK RED BLOOD AND FOUL SMELL. PER DAYSHIFT NURSE AWARE. DAYSHIFT NURSE WILL ENTER ORDERS FOR BLOOD TRANSFUSION 1 UNIT PRBC ORDERED BY LAUREN VUONG. WILL FOLLOW UP AND ADMINISTER TO PT. 1 UNIT PRBC ORDERED. BED LOCKED AND IN LOWEST POSITION, SIDE RAILS UP X3, BED ALARM ON, CALL LIGHT WITHIN REACH. WILL CONTINUE TO MONITOR.
--- NOTE | 2018-06-27 19:48 | NUR ---
SOW FARM MANAGER NOTES LATE ENTRY OF ORDER FOR 1PRBC TO TRANSFUSE. PER CAROLANN EMANUEL ORDERED EARLIER IN THE EFTERNOON. INCOMING NIGHT NURSE AND CHARGE NURSE MADE AWARE.
--- NOTE | 2018-06-27 20:02 | NUR ---
TELE/RN NOTES RECEIVED CALL FROM SHANDA VUONG. NOTIFIED HER THAT PT. HAS NOT YET RECEIVED 1 UNIT PRBC AND THE ORDER WAS RECENTLY PLACED. PER LAUREN VUONG "OK JUST MAKE SURE HE RECEIVES THE 1 UNIT PRBC". PT. MOST CURRENT H/H IS 7.7/24. PER LAUREN VUONG RECHECK PT. H/H LEVEL 2 HOURS AFTER RECEIVING THE 1 UNIT PRBC, AND THEN MONITOR H/H EVERY 4 HOURS AFTER. WILL CONTINUE TO MONITOR PT. AND WILL CARRY OUT ORDERS.
--- NOTE | 2018-06-27 21:18 | NUR ---
TELE/RN NOTES NOTIFIED LAUREN VUONG OF PT. CURRENT STATUS AND PROGRESS WITH BOWEL PREP. PT. HAS FINISHED ALMOST HALF OF THE GO-LYTELY. PT. VITAL SIGNS STABLE SYSTOLIC BP IN LOW 100'S. PER LAUREN VUONG NEW ORDERS: INCREASE PT. IV FLUIDS NS FROM 80ML/HR TO 100ML/HR AND RECHECK PT. H/H LEVELS AFTER FIRST UNIT OF PRBC INFUSED. INFUSE 2ND BAG OF PRBC. WILL CARRY OUT ORDERS. WILL CONTINUE TO MONITOR.
[2018-06-27] MEDS ORDERED: Medication Not On Formulary EA (Melatonin 3 MG) PO SCH (22:00)
--- NOTE | 2018-06-27 22:09 | NUR ---
TELE/RN NOTES INITIATED BLOOD TRANSFUSION OF 1 UNIT PRBC ORDERED. PT. VITAL SIGNS STABLE. WILL CONTINUE TO MONITOR.
[2018-06-27] MEDS: SIMVASTATIN 10 MG TABLET PO SCH (22:33)
[2018-06-27] MEDS: DIVALPROEX SODIUM 500 MG TABLET.DR PO SCH (22:34)
--- NOTE | 2018-06-27 23:50 | NUR ---
TELE/RN NOTES RECEIVED CALL FROM LAUREN VUONG. UPDATED HER ON PT. CURRENT STATUS. BLOOD TRANSFUSION OF 1ST UNIT PRBC STILL INFUSING. PER LAUREN VUONG NEW ORDERS: HOLD IV FLUIDS WHILE 2ND UNIT PRBC INFUSING THEN RESTART IV FLUIDS NS @ 80ML/HR. ADD PT AND INR TO MORNING LABS. WILL CARRY OUT ORDERS. WILL CONTINUE TO MONITOR.
[2018-06-28] VITALS (20 sets, daily range): BP systolic 91–135; BP diastolic 50–70
--- NOTE | 2018-06-28 01:19 | NUR ---
TELE/RN NOTES 1 UNIT PRBC INFUSED. PT. TOLERATED BLOOD TRANSFUSION WELL. VITAL SIGNS STABLE. NO ADVERSE REACTIONS NOTED. WILL CONTINUE TO MONITOR.
[2018-06-28 02:00] LABS: HEMOGLOBIN 7.6 g/dL (13.5-17.5)
--- NOTE | 2018-06-28 02:59 | NUR ---
TELE/RN NOTES BEGAN INFUSION OF 2ND UNIT PRBC ORDERED. PT. VITAL SIGNS STABLE. WILL CONTINUE TO MONITOR.
--- NOTE | 2018-06-28 04:06 | NUR ---
TELE/RN NOTES CALLED AND NOTIFIED SOCIAL SERVICE LIAISON DR. REIS PT. EKG RESULTED STATING ACUTE KS, PROLONGED QT, T WAVE ABNORMALITY CONSIDER LATERAL ISCHEMIA, INFERIOR POSTERIOR INFARCT POSSIBLY ACUTE AND JUNCTIONAL RHYTHM WITH FREQUENT AND CONSECUTIVE PREMATURE VENTRICULAR COMPLEXES. PT. VITAL SIGNS STABLE. NO COMPLAINTS OF PAIN OR CHEST PAIN NOTED AT THIS TIME. PER DR. REIS "SEND ME THE EKG'S AND I'LL LOOK AT THEM". SENT EKG RESULTS TO MD AWAITING ORDERS. WILL CONTINUE TO MONITOR.
[2018-06-28] MEDS: NEXIUM 40 MG VIAL IV SCH ×2 (04:13→16:27)
--- NOTE | 2018-06-28 04:56 | NUR ---
TELE/RN NOTES STILL AWAITING CALL BACK FROM DR. REIS. CALLED HIS GRAPHIC COORDINATOR SERVICE, PER DR. REIS NEW ORDERS: CALL AND NOTIFY DR. SIBLEY. WILL CALL AND NOTIFY DR. SIBLEY. WILL CONTINUE TO MONITOR.
--- NOTE | 2018-06-28 05:17 | NUR ---
TELE/RN NOTES CALLED AND NOTIFIED DR. SIBLEY ABOUT PT. EKG RESULTS STATING ACUTE NM. PT. VITAL SIGNS STABLE. NO COMPLAINTS OF PAIN/CHEST PAIN NOTED AT THIS TIME. PER DR. TOÑITO SPEARS, PT. HAS A GI BLEED, NO NEW ORDERS AT THIS TIME. WILL CONTINUE TO MONITOR.
--- NOTE | 2018-06-28 05:26 | NUR ---
TELE/RN NOTES INFUSION OF 2ND UNIT PRBC COMPLETED. PT. TOLERATED BLOOD TRANSFUSION WELL. VITAL SIGNS STABLE. WILL CONTINUE TO MONITOR.
[2018-06-28] MEDS: METOPROLOL TARTRATE 25 MG TABLET PO SCH ×4 (06:00→17:26)
--- NOTE | 2018-06-28 06:55 | NUR ---
TELE/RN NOTES PT. IS LYING IN BED RESTING. BREATHING EVEN AND UNLABORED ON 2LPM O2 VIA NC. NO SOB, RESPIRATORY DISTRESS OR COMPLAINTS OF PAIN NOTED AT THIS TIME. NO COMPLAINTS OF CHEST PAIN NOTED AT THIS TIME AND THROUGHOUT SHIFT. PT. WITH EXTERNAL BRUSH FINISHER PRESENT AND INTACT CURRENT RHYTHM = SINUS RHYTHM HR 62. PT. WITH LEFT AC 20 GAUGE IV SALINE LOCK PRESENT, PATENT AND INTACT.PT. WITH RIGHT UPPER ARM MIDLINE PRESENT, PATENT AND INTACT ADMINISTERING TO PT. NS @ 80 ML/HR. PT. REMAINS NPO SINCE MIDNIGHT. PT. WILL BE GOING FOR EGD AND COLONOSCOPY TODAY, CONSENT SIGNED AND PLACED IN PT. CHART. ALL PT. NEEDS MET. BED LOCKED AND IN LOWEST POSITION, SIDE RAILS UP X3, BED ALARM ON, CALL LIGHT WITHIN REACH. WILL ENDORSE TO DAYSHIFT NURSE FOR CONTINUITY OF CARE.
[2018-06-28 07:05] LABS: BASOPHILS % (AUTO) 0.3 % (0.0-2.0); HEMATOCRIT 25 % (39-51); HEMOGLOBIN 8.1 g/dL (13.5-17.5); LYMPHOCYTES # (AUTO) 1.3 /CMM (0.8-4.8); LYMPHOCYTES % (AUTO) 10.6 % (20.0-44.0); MEAN CORPUSCULAR HGB CONC 32 g/dl (31.0-36.0); MEAN CORPUSCULAR VOLUME 84 fL (80-96); MONOCYTES # (AUTO) 1.1 /CMM (0.1-1.30); MONOCYTES % (AUTO) 9.5 % (2.0-12.0); NEUTROPHILS # (AUTO) 9.4 /CMM (1.8-8.9); NEUTROPHILS % (AUTO) 79.6 % (43.0-81.0); PLATELET COUNT (AUTO) 163 /CMM (150-450); RED BLOOD CELL COUNT(AUTO) 2.98 MIL/uL (4.5-6.0); WHITE BLOOD COUNT (AUTO) 11.9 K/uL (4.3-11.0)
[2018-06-28] MEDS: SUCRALFATE 1 G/10 ML UDC GT SCH ×4 (07:30→22:29)
--- NOTE | 2018-06-28 07:42 | NUR ---
SUGAR HOUSE SUPERVISOR OPENING NOTES RECEIVED PT RESTING IN BED, ASLEEP, EASILY AROUSED. A/O X3-4. ON O2 AT 2LPM WITH NO ACUTE RESPIRATORY DISTRESS NOTED. PT DENIES ANY PAIN OR DISCOMFORT AT THIS TIME. ON TELEMONITORING SR WITH HR 67. PT DENIES ANY CONCERNS AND QUESTIONS AT THIS TIME. PIV LAC G20, FLUSHED WITH NS, INTACT AND OPERATIONAL. IVF NS AT 80ML/HR TO NICOLE MIDLINE G18, INTACT AND FLUID INFUSING WELL. PT KEPT COMFORTABLE. PT'S BED KEPT IN LOWEST, LOCKED POSITION WITH SR X2. PT ON NPO. CALL LIGHT KEPT WITHIN REACH. WILL CONTINUE PLAN OF CARE.
[2018-06-28 07:47] LABS: ALANINE AMINOTRANSFERASE 13 U/L (12-78); ALBUMIN 1.9 g/dL (3.4-5.0); ALKALINE PHOSPHATASE 24 U/L (46-116); ASPARTATE AMINOTRANSFERASE 19 U/L (15-37); BILIRUBIN,TOTAL 0.4 mg/dL (0.2-1.0); CALCIUM, SERUM 7.8 mg/dL (8.5-10.1); CARBON DIOXIDE 27 mmol/L (21-32); CHLORIDE 110 mmol/L (98-107); CREATININE 1.6 mg/dL (0.6-1.3); GLUCOSE 118 mg/dL (74-106); MAGNESIUM 2.3 mg/dL (1.8-2.4); PHOSPHORUS 3.6 mg/dL (2.5-4.9); SODIUM SERUM 146 mmol/L (136-145); TOTAL PROTEIN, SERUM 4.7 g/dL (6.4-8.2); UREA NITROGEN, BLOOD 37 mg/dL (7-18)
--- NOTE | 2018-06-28 07:48 | NUR ---
PRE K LEAD TEACHER NOTES RECEIVED CALL FROM LAB REGARDING TROPONIN OF PT 2.1. WILL NOTIFY .
[2018-06-28] MEDS ORDERED: NA PHOS,M-B/NA PHOS,DI-BA 1 EA ENEMA RC PRN (08:00)
[2018-06-28] MEDS ORDERED: MAGNESIUM CITRATE 296 ML BOTTLE PO ONE (08:00)
[2018-06-28] MEDS ORDERED: PEG 3350/NA SULF,BICARB,CL/KCL 4,000 ML BOTTLE PO ONE (08:00)
[2018-06-28] MEDS: IV NS 0.9% 1,000 ML IV PRN (08:24)
[2018-06-28 08:47] LABS: CHOLESTEROL 109 mg/dL (<200); TRIGLYCERIDES 143 mg/dL (30-150)
[2018-06-28 08:48] LABS: HDL CHOLESTEROL 31 mg/dL (40-60); LDL 49 mg/dL (0-99)
[2018-06-28] MEDS: VALSARTAN 40 MG TABLET PO SCH (09:00)
[2018-06-28] MEDS: MULTIVIT W/MINERALS 1 TAB TABLET PO SCH (09:00)
[2018-06-28] MEDS: Z GUARD REMEDY 2 OZ OINT TP SCH (09:00)
[2018-06-28] MEDS: CYANOCOBALAMIN 100 MCG TABLET PO SCH (09:00)
[2018-06-28] MEDS: FUROSEMIDE 20 MG TABLET PO SCH (09:00)
[2018-06-28] MEDS: BUDESONIDE 3 MG CAP.SR.24H PO SCH (09:00)
[2018-06-28] MEDS: LEVETIRACETAM (250 MG) 250 MG TABLET PO SCH ×2 (09:00→16:27)
[2018-06-28] MEDS: DIVALPROEX SODIUM 250 MG TABLET.DR PO SCH ×2 (09:00→16:27)
--- NOTE | 2018-06-28 09:10 | NUR ---
PUTTY MIXER AND APPLIER NOTES SPOKE TO DR SIBLEY REGARDING PT'S PLAN. DR SIBLEY ASKED RN TO PAGE DR ROSALINA BERMUDEZ INSTEAD, "HE KNOWS THE PT WELL." CN MADE AWARE. DR BERMUDEZ WAS PAGED.
--- NOTE | 2018-06-28 09:58 | NUR ---
RN NOTES RECEIVED CALL BACK FROM DR ROSALINA BERMUDEZ MD INFORMED AND UPDATED REGARDING PT'S CONDITION FROM YESTERDAY. TRENDS OF LABS, EKG RESULT THIS MORNING, BOWEL MOVEMENTS, GI PREP, SCHEDULED SURGERY, AND CARDIO CLEARANCE BEFORE PROCEDING TO PROCEDURES. /DR OREN BERMUDEZ ORDERED OKAY TO PROCEED WITH CTCA WITH CONTRAST WITH CREA OF 1.6. INFORMED RADIOLOGY.
--- NOTE | 2018-06-28 10:21 | NUR ---
RN NOTES RADIOLOGY MADE AWARE REGARDING DR BERMUDEZ ORDER OKAY TO PROCEED WITH CTCA WITH CREA OF 1.6. PT HAS A MIDLINE G18 TO NICOLE, COMPATIBLE FOR CT. RADIOLOGY AND CN AWARE.
--- NOTE | 2018-06-28 11:10 | NUR ---
RN NOTES PT LEFT THE UNIT FOR CTCA WITH CONTRAST PER DR BERMUDEZ BEFORE EGD PROCEDURE. DR ALBRECHT MADE AWARE.
[2018-06-28] MEDS ORDERED: NITROGLYCERIN 0.4 MG/TAB BOTTLE SL ONE (12:00)
[2018-06-28] MEDS ORDERED: IV NS 0.9% 500 ML IV PRN (12:00)
[2018-06-28] MEDS ORDERED: METOPROLOL TARTRATE INJ 5 MG/5 ML AMPUL IVP ONE (12:00)
--- NOTE | 2018-06-28 12:31 | NUR ---
RN NOTES PT JUST WENT BACK FROM CTCA PROCEDURE, AWAITING FOR RESULTS.
[2018-06-28] MEDS: NYSTATIN TOP POWDER 15 GM BOTTLE TP SCH ×2 (13:08→16:28)
--- NOTE | 2018-06-28 13:45 | NUR ---
RN NOTES RECEIVED CALL FROM MEDICAL CODING AUDITOR/RAMÍREZ, ANESTHESIOLOGIST AND /DR ALBRECHT WILL NOT BE ABLE TO DO TE PROCEDURE AT THIS TIME ANYMORE. CN/ZENY AWARE. CTCA RESULT RELAYED TO CHIEF CREW SCHEDULER/DR TOÑITO MD SEEN PT, AND OKAY TO DO EGD/COLONOSCOPY COSME IN AM. PT AWARE AND CN/ZENY MADE AWARE. WILL ENDORSE TO INCOMING NURSE WELL.
[2018-06-28] MEDS: IV D5/ 0.9% NACL 1,000 ML IV PRN (13:55)
--- NOTE | 2018-06-28 14:45 | NUR ---
RN NOTES DR TAN CAME AND DEBRIDED LLE OPEN WOUND OF THE PT. CONSENT SIGNED BY PT. DRESSINGS INTACT AND PER MD/DR CASTORENA WILL BE GOOD FOR 3DAYS. WILL ENDORSE TO INCOMING NIGHT NURSE WELL.
--- NOTE | 2018-06-28 17:25 | NUR ---
RN NOTES STARTED 1PRBC TO NICOLE MIDLINE AT 1721. VITAL SIGNS WILL BE RECORDED THROUGHOUT TRANSFUSION. WILL CONTINUE TO MONITOR.
--- NOTE | 2018-06-28 19:33 | NUR ---
PURIFICATION OPERATOR CLOSING NOTES PT REMAINS RESTING IN BED, ASLEEP, EASILY AROUSED. A/O X3-4. ON O2 AT 2LPM WITH NO ACUTE RESPIRATORY DISTRESS NOTED. PT DENIES ANY PAIN OR DISCOMFORT AT THIS TIME. ON TELEMONITORING SR WITH HR 62. ALL NEEDS AND CARE PROVIDED. PIV LAC G20, FLUSHED WITH NS, INTACT AND OPERATIONAL. ON GOING 1PRBC TO NICOLE MIDLINE G18, INTACT AND BLOOD INFUSING WELL, WITH NO A/R NOTED AND VITALS STABLE. PT KEPT COMFORTABLE. PT'S BED KEPT IN LOWEST, LOCKED POSITION WITH SR X2. PT ON NPO. CALL LIGHT KEPT WITHIN REACH. ENDORSED TO SODA TESTER NURSE FOR JEANNETTE.
--- NOTE | 2018-06-28 19:35 | NUR ---
TELE/RN OPENING NOTES PT RECEIVED RESTING COMFORTABLY IN BED. A/OX3. ON 3L O2 VIA NC, BREATHING EVEN AND UNLABORED. DENIES SOB AND PAIN AT THIS TIME. NICOLE MIDLINE PATENT AND INTACT WITH BLOOD TRANSFUSION ONGOING. IV TO LAC PATENT AND INTACT. ON TELE MONITOR SHOWING SR WITH OCCASIONAL PVC, HR 60'S. S/P LLE WOUND DEBRIDEMENT TODAY. PLAN FOR EGD/COLONOSCOPY TOMORROW. PT AWARE AND VERBALIZES UNDERSTANDING. BED IN LOW/LOCKED POSITION WITH CALL LIGHT IN REACH. HOB ELEVATED. BILAT. UPPER SIDE RAILS IN PLACE. BED ALARM ON FOR SAFETY. WILL CONTINUE TO MONITOR
--- NOTE | 2018-06-28 20:52 | NUR ---
BLOOD TRANSFUSION ENDED 113/64, HR 80, 97.9F ORAL, RR 19, SPO2 100% ON 3L O2. NO ADVERSE REACTIONS NOTED.
--- NOTE | 2018-06-28 21:20 | NUR ---
PAGEShakira VUONG NP (GI) SPOKE TO LAUREN VUONG FOR ANY BOWEL PREP SINCE PT IS FOR EGD/COLONOSCOPY TOMORROW. AWARE THAT PT HAS ABOUT HALF OF THE GOLYTELY AT BEDSIDE FROM LAST NIGHT AND HAS BEEN ON CLEAR LIQUIDS. PER ENDORSEMENT, PT HAVING SMALL DARK RED/BLACK STOOLS. UNSURE IF FECES MIXED WITH IT. CAROLANN WITH ORDERS FOR BISACODYL 10MG (TWO 5 MG TABLETS) ONCE TONIGHT. AWARE THAT BLOOD TRANSFUSION JUST STOPPED. NO NEED TO RECHECK CBC TONIGHT, OKAY TO DRAW CBC IN AM. ORDERS NOTED AND READBACK PER PROTOCOL. WILL CARRY OUT.
[2018-06-28] MEDS ORDERED: BISACODYL (5 MG) 5 MG TABLET.DR PO ONE (22:00)
--- NOTE | 2018-06-28 22:15 | NUR ---
PHARMACY SPOKE TO PERSONAL COACH PHARMACY TO VERIFY BISACODYL. TOLD THEM THAT MD IS AWARE OF PT'S GI BLEED AND WANTS TO ORDER BISACODYL FOR PROCEDURE TOMORROW. OKAY'D TO GIVE
[2018-06-28] MEDS: DIVALPROEX SODIUM 500 MG TABLET.DR PO SCH (22:29)
[2018-06-28] MEDS: SIMVASTATIN 10 MG TABLET PO SCH (22:29)
[2018-06-29] VITALS: BP 117/67
[2018-06-29] MEDS: NEXIUM 40 MG VIAL IV SCH ×2 (02:53→15:08)
[2018-06-29] MEDS: IV D5/ 0.9% NACL 1,000 ML IV PRN ×2 (03:02→14:31)
[2018-06-29 04:00] VITALS: BP 130/66
[2018-06-29] MEDS: METOPROLOL TARTRATE 25 MG TABLET PO SCH ×4 (06:00→17:25)
[2018-06-29 06:59] LABS: BASOPHILS % (AUTO) 0.5 % (0.0-2.0); EOSINOPHILS % (AUTO) 4.4 % (0.0-6.0); HEMATOCRIT 27 % (39-51); HEMOGLOBIN 9.1 g/dL (13.5-17.5); LYMPHOCYTES # (AUTO) 1.6 /CMM (0.8-4.8); MEAN CORPUSCULAR HGB CONC 33 g/dl (31.0-36.0); MEAN CORPUSCULAR VOLUME 85 fL (80-96); MONOCYTES # (AUTO) 1.2 /CMM (0.1-1.30); MONOCYTES % (AUTO) 12.2 % (2.0-12.0); NEUTROPHILS # (AUTO) 6.3 /CMM (1.8-8.9); NEUTROPHILS % (AUTO) 65.9 % (43.0-81.0); PLATELET COUNT (AUTO) 160 /CMM (150-450); RED BLOOD CELL COUNT(AUTO) 3.21 MIL/uL (4.5-6.0); WHITE BLOOD COUNT (AUTO) 9.5 K/uL (4.3-11.0)
--- NOTE | 2018-06-29 07:05 | NUR ---
TELE/RN CLOSING NOTES PT RESTING COMFORTABLY IN BED. A/OX3. ON 3L O2 VIA NC, BREATHING EVEN AND UNLABORED. DENIES SOB AND PAIN AT THIS TIME. ON TELE MONITOR SHOWING SR WITH OCCASIONAL PVC'S, HR 84. NICOLE MIDLINE PATENT AND INTACT RUNNING IVF ORDERED. NPO SINCE MIDNIGHT FOR EGD/COLONOSCOPY THIS AM. STILL WITH X2 BM, DARK BLACK STOOL. S/P 1 UNIT PRBC YESTERDAY. NO SIGNIFICANT CHANGES OVERNIGHT. DRESSING TO LLE REMAINS C/D/I. NOT TO CHANGE UNTIL 07/01/[address] CASTORENA'S ORDERS. TURNED/REPOSITIONED Q2H, HEELS OFFLOADED. HOB ELEVATED AND BILAT. UPPER SIDE RAILS IN PLACE. WILL ENDORSE TO DAY SHIFT RN JEANNETTE
[2018-06-29 07:08] LABS: CALCIUM, SERUM 7.4 mg/dL (8.5-10.1); CARBON DIOXIDE 28 mmol/L (21-32); CHLORIDE 116 mmol/L (98-107); CREATININE 1.4 mg/dL (0.6-1.3); GLUCOSE 124 mg/dL (74-106); MAGNESIUM 2.6 mg/dL (1.8-2.4); PHOSPHORUS 2.9 mg/dL (2.5-4.9); POTASSIUM 3.7 mmol/L (3.5-5.1); SODIUM SERUM 151 mmol/L (136-145); UREA NITROGEN, BLOOD 32 mg/dL (7-18)
[2018-06-29 07:20] VITALS: BP 129/69
--- NOTE | 2018-06-29 07:29 | NUR ---
TELE/RN OPENING NOTES PT RECEIVED AWAKE IN BED IN NO ACUTE SIGNS OF DISTRESS. HOB ELEVATED. A/OX3. VERBALLY RESPONSIVE, DENIES PAIN OR DISCOMFORTS AT THIS TIME. ON O2 VIA N/C @ 3LPM, BREATHING EVEN AND UNLABORED, DENIES SOB. ON TELE MONITORING SHOWING SR WITH HR 86, NO C/O OF CARDIAC DISTRESS VOICED. NICOLE MIDLINE PATENT AND INTACT RUNNING IVF ORDERED. DRESSING TO LLE C/D/I. PT JUST WHEELED BY O.R NURSE PETER TO SURGERY FOR EGD AND COLONOSCOPY. V/S TAKEN, STABLE AND RECORDED. WILL F/U.
[2018-06-29] MEDS: SUCRALFATE 1 G/10 ML UDC GT SCH ×4 (07:30→21:10)
--- NOTE | 2018-06-29 07:43 | NUR ---
RN NOTES PATIENT BROUGHT BACK TO UNIT. EGD AND COLONOSCOPY PENDING AT THIS TIME UNTIL FURTHER NOTICE FROM MD. WILL CONTINUE TO MONITOR.
[2018-06-29 08:00] VITALS: BP 124/70
[2018-06-29] MEDS: NYSTATIN TOP POWDER 15 GM BOTTLE TP SCH ×2 (08:26→17:25)
[2018-06-29] MEDS: Z GUARD REMEDY 2 OZ OINT TP SCH (08:27)
--- NOTE | 2018-06-29 09:13 | NUR ---
RN NOTES PATIENT SEEN AND EVALUATED BY DR. SIBLEY AND HE SAID THAT IT'S OK TO PUT PATIENT BACK TO CLEAR LIQUIDS DIET AT THIS TIME. WILL CARRY OUT ORDER.
[2018-06-29] MEDS: LEVETIRACETAM (250 MG) 250 MG TABLET PO SCH ×2 (09:31→17:24)
[2018-06-29] MEDS: BUDESONIDE 3 MG CAP.SR.24H PO SCH (09:31)
[2018-06-29] MEDS: DIVALPROEX SODIUM 250 MG TABLET.DR PO SCH ×2 (09:32→17:24)
[2018-06-29] MEDS: FUROSEMIDE 20 MG TABLET PO SCH (09:32)
[2018-06-29] MEDS: MULTIVIT W/MINERALS 1 TAB TABLET PO SCH (09:32)
[2018-06-29] MEDS: CYANOCOBALAMIN 100 MCG TABLET PO SCH (09:32)
--- NOTE | 2018-06-29 09:56 | NUR ---
WOUND CARE CONSULT WOUND CARE RECEIVED CONSULT FOR NEW ADMISSION WOUNDS. WOUND CARE WILL DEFER CONSULT AND TREATMENT PLANS TO PLASTIC SURGICAL TEAM INCLUDING DPLindsay TAN WHO ARE ALL CURRENTLY FOLLOWING THIS PATIENT. PATIENT WITH MARY AT 13, ALL PRESSURE ULCER PREVENTION MEASURES ARE NOTED TO BE IN PLACE. WILL SEE PRN.
--- NOTE | 2018-06-29 11:34 | NUR ---
RN NOTES PT S/P WOUND DEBRIDEMENT ON LLE ON 06/28/18. DR CASTORENA CAME AND EVALUATED PT'S DRESSING ON LEFT LOWER EXT. IT WAS INTACT AND STATED NOT TO OPEN OR CHANGE DRESSING UNTIL 07/01/2018. PT IS AWARE. WILL CONTINUE TO MONITOR.
--- NOTE | 2018-06-29 12:08 | NUR ---
RN NOTES ASKED BUTTER PRODUCTION SUPERVISOR CAROLANN EMANUEL IF IT'S OK TO CHECK PT'S H & H LEVEL TODAY AND SHE SAID TO PLACE ORDER FOR 1800 TODAY. ORDERED PLACED AND WILL FOLLOW-UP RESULTS.
[2018-06-29 16:00] VITALS: BP 112/74
[2018-06-29 18:26] LABS: HEMOGLOBIN 8.6 g/dL (13.5-17.5)
--- NOTE | 2018-06-29 18:32 | NUR ---
MS RN CLOSING NOTES PT IN BED AWAKE AND LYING COMFORTABLY AT MODERATE HIGH BACKREST POSITION. PRACHI BOUDREAUX AT BEDSIDE AND AWARE THAT PT WILL BE TRANSFERRED TOMORROW TO ANOTHER HOSPITAL FOR HIGHER LEVEL OF CARE. PT IS A/O X3-4, SAME VERBALLY RESPONSIVE. ON O2 AT 2LPM, TOLERATING WELL WITH NO ACUTE RESPIRATORY DISTRESS NOTED. PIV ON LAC G#20, FLUSHED WITH NS, INTACT AND PATENT. NICOLE MIDLINE G#18 INTACT WITH IVF OF D5 NS @100ML/HR INFUSING WELL. PTTURNED AND REPOSITIONED IN BED Q 2HRS AND PRN. KEPT DRY, CLEAN AND COMFORTABLE. SAFETY MEASURES KEPT IN PLACE. BED IN LOWEST LOCKED POSITION WITH SR UP X2. CALL LIGHT KEPT WITHIN REACH. ENDORSED TO ORGANIC EXTRACTIONS TECHNICIAN NURSE FOR JEANNETTE.
[2018-06-29] MEDS: DIVALPROEX SODIUM 500 MG TABLET.DR PO SCH (20:00)
[2018-06-29 20:20] VITALS: BP 115/60
--- NOTE | 2018-06-29 20:21 | NUR ---
MS RN NOTES RECEIVED PATIENT AWAKE IN BED AND WATCHING TV WITH NO DISTRESS NOTED. CALL LIGHT WITHIN REACH. DPOA AT BEDSIDE. NO C/O PAIN OR DISCOMFORT. PERIPHERAL LINES INTACT AND PATENT. PRN AMBIEN 5MG GIVEN PER PT AND DPOA REQUEST. WILL CONTINUE TO MONITOR FOR EFFECTIVENESS. ENCOURAGED USE OF CALL LIGHT FOR ASSISTANCE AND DEMONSTRATED GOOD UNDERSTANDING. BED IN LOW LOCK SETTING. BED ALARM ON AND FUNCTIONING PROPERLY. BED IN LOW LOCK SETTING. ALL BELONGINGS KEPT NEAR BEDSIDE. WILL CONTINUE TO MONITOR.
[2018-06-29] MEDS: SIMVASTATIN 10 MG TABLET PO SCH (21:11)
[2018-06-30] MEDS: METOPROLOL TARTRATE 25 MG TABLET PO SCH ×4 (00:52→18:00)
[2018-06-30] MEDS: IV D5/ 0.9% NACL 1,000 ML IV PRN (01:28)
[2018-06-30] MEDS: NEXIUM 40 MG VIAL IV SCH ×2 (03:00→16:04)
--- NOTE | 2018-06-30 06:26 | NUR ---
MS RN NOTES PATIENT ASLEEP IN BED WITH NO DISTRESS NOTED. CALL LIGHT WITHIN REACH. ALL DUE MEDS GIVEN ORDERED WITH NO ASE NOTED. NO FURTHER C/O PAIN OR DISCOMFORT. PERIPHERAL LINE INTACT AND PATENT. BED IN LOW LOCK SETTING. BED ALARM ON AND FUNCTIONING PROPERLY. ALL BELONGINGS KEPT NEAR BEDSIDE. WILL ENDORSE TO ONCOMING SHIFT.
[2018-06-30 07:16] LABS: HEMOGLOBIN 7.9 g/dL (13.5-17.5)
[2018-06-30 08:00] VITALS: BP 127/64
--- NOTE | 2018-06-30 08:00 | NUR ---
RECEIVED PT. PT STABLE, BREATHING LABORED, HOWEVER O2 SAT WNL. WHEEZING HEARD THROUGHOUT ALL LOBES UPON AUSCULTATION. PT AWAITING TRANSFER TO [facility] FOR HIGHER LEVEL CARE. PER CM BED WILL BE AVAILABLE TODAY. WILL F/U WITH [facility] FOR BED STATUS. CONT TO MONITOR.
[2018-06-30] MEDS: SUCRALFATE 1 G/10 ML UDC GT SCH ×3 (08:12→17:30)
[2018-06-30] MEDS: Z GUARD REMEDY 2 OZ OINT TP SCH (09:00)
[2018-06-30] MEDS ORDERED: LOSARTAN POTASSIUM 50 MG TABLET PO SCH (09:00)
[2018-06-30] MEDS: NYSTATIN TOP POWDER 15 GM BOTTLE TP SCH ×2 (09:00→16:11)
[2018-06-30] MEDS: DIVALPROEX SODIUM 250 MG TABLET.DR PO SCH ×2 (10:07→16:04)
[2018-06-30] MEDS: BUDESONIDE 3 MG CAP.SR.24H PO SCH (10:10)
[2018-06-30] MEDS: MULTIVIT W/MINERALS 1 TAB TABLET PO SCH (10:10)
[2018-06-30] MEDS: LEVETIRACETAM (250 MG) 250 MG TABLET PO SCH ×2 (10:10→16:04)
[2018-06-30] MEDS: CYANOCOBALAMIN 100 MCG TABLET PO SCH (10:10)
[2018-06-30 16:00] VITALS: BP 135/64
[2018-06-30] MEDS ORDERED: LORAZEPAM INJ 2 MG/ML VIAL IV ONE (16:30)
[2018-06-30 19:26] VITALS: BP 124/70
--- NOTE | 2018-06-30 19:40 | NUR ---
MS RN NOTES PT AWAKE & RESPONSIVE. NOT IN ANY DISTRESS. NO SOB NOTED. DENIES ANY PAIN OR DISCOMFORT AT THIS TIME. PT TO BE DISCHARGED TO [facility] FOR HIGHER LEVEL OF CARE. EMT CAME IN TO MANAGER RISK PT. VSS. AFEBRILE. REPORT ALREADY GIVEN BY AM RN TO EMT & HOSPITAL RN FOR CONTINUITY OF CARE. BELONGINGS SENT WITH PT. PT LEFT IN FAIR & STABLE CONDITION. BELONGINGS SENT WITH PT.
== END 2018-06-30 19:44 | disposition short-term general hospital (02) | DRG 356 ==
LOC: ER 23:06 → TELE 06-27 03:16 → MED 06-29 08:55
PROVIDERS: ADMIT Internal Medicine; ATTEND Internal Medicine Nephrology
PROC: 30233N1 Transfusion of Nonautologous Red Blood Cells into Peripheral Vein, Percutaneous Approach (ICD-10-PCS; principal; 2018-06-27)
PROC: 05H533Z Insertion of Infusion Device into Right Subclavian Vein, Percutaneous Approach (ICD-10-PCS; 2018-06-27)
PROC: B546ZZA Ultrasonography of Right Subclavian Vein, Guidance (ICD-10-PCS; 2018-06-27)
PROC: 0JBP0ZZ Excision of Left Lower Leg Subcutaneous Tissue and Fascia, Open Approach (ICD-10-PCS; 2018-06-28)
DX: K92.2 Gastrointestinal hemorrhage, unspecified (principal); I21.4 Non-ST elevation (NSTEMI) myocardial infarction; N17.9 Acute kidney failure, unspecified; K50.90 Crohn's disease, unspecified, without complications; N39.0 Urinary tract infection, site not specified; L03.115 Cellulitis of right lower limb; D64.9 Anemia, unspecified; I25.10 Atherosclerotic heart disease of native coronary artery without angina pectoris; K21.9 Gastro-esophageal reflux disease without esophagitis; N28.89 Other specified disorders of kidney and ureter; I87.2 Venous insufficiency (chronic) (peripheral); Z90.49 Acquired absence of other specified parts of digestive tract; Z87.891 Personal history of nicotine dependence; Z86.718 Personal history of other venous thrombosis and embolism; Z79.899 Other long term (current) drug therapy; Z79.82 Long term (current) use of aspirin; Z79.01 Long term (current) use of anticoagulants; F32.9 Major depressive disorder, single episode, unspecified; Z88.5 Allergy status to narcotic agent; Z88.8 Allergy status to other drugs, medicaments and biological substances; I25.2 Old myocardial infarction; I34.0 Nonrheumatic mitral (valve) insufficiency; K52.9 Noninfective gastroenteritis and colitis, unspecified; I73.9 Peripheral vascular disease, unspecified; G40.909 Epilepsy, unspecified, not intractable, without status epilepticus; I12.9 Hypertensive chronic kidney disease with stage 1 through stage 4 chronic kidney disease, or unspecified chronic kidney disease; N18.9 Chronic kidney disease, unspecified; I71.4 Abdominal aortic aneurysm, without rupture; L82.1 Other seborrheic keratosis; K64.9 Unspecified hemorrhoids
CPT/HCPCS: 36415; 71045-TC; 75574; 76705-TC; 80048-TC; 80053-TC; 80061-TC; 80076-TC; 82272-TC; 82728-TC; 83540-TC; 83690-TC; 83735-TC; 84100-TC; 84484-TC; 85025-TC; 85027-TC; 85610-TC; 85730-TC; 86850-TC; 86921-TC; 87070-TC; 87081-TC; 87186-TC; 93307-TC; A6253; A6402; A6403; G0378; J2060; J2405; J7030; J7040; J7042; J7050; P9016-BL; Q9967

== ENCOUNTER 2018-09-08 21:41 | Emergency (ER) | payer MEDICARE, MEDICAID ==
[~2018-09-08] VITALS: Ht 175.3 cm; Wt 86.6 kg
--- NOTE | 2018-09-08 22:32 | NUR ---
biba for c/o nausea and lower bad pain and dysuria for the past few days
[2018-09-08] MEDS ORDERED: IV NS 0.9% 1,000 ML BAG IV ONE (23:30)
--- NOTE | 2018-09-08 23:41 | NUR ---
URINE COLLECTED AND SENT TO THE LAB
[2018-09-09 00:01] LABS: BASOPHILS # (AUTO) 0.2 /CMM (0.0-0.2); BASOPHILS % (AUTO) 1.9 % (0.0-2.0); HEMATOCRIT 37 % (39-51); HEMOGLOBIN 11.9 g/dL (13.5-17.5); LYMPHOCYTES # (AUTO) 1.6 /CMM (0.8-4.8); LYMPHOCYTES % (AUTO) 17.4 % (20.0-44.0); MEAN CORPUSCULAR HGB CONC 33 g/dl (31.0-36.0); MEAN CORPUSCULAR VOLUME 91 fL (80-96); MONOCYTES # (AUTO) 0.8 /CMM (0.1-1.30); MONOCYTES % (AUTO) 8.8 % (2.0-12.0); NEUTROPHILS % (AUTO) 66.9 % (43.0-81.0); PLATELET COUNT (AUTO) 186 /CMM (150-450); RED BLOOD CELL COUNT(AUTO) 4.01 MIL/uL (4.5-6.0)
[2018-09-09 00:26] LABS: APPEARANCE,URINE TURBID (CLEAR); BILIRUBIN,URINE NEGATIVE (NEGATIVE); BLOOD, URINE 1+ Ery/uL (NEGATIVE); COLOR,URINE YELLOW (YELLOW); KETONES,URINE NEGATIVE (NEGATIVE); LEUKOCYTE ESTERASE ,URINE 3+ (NEGATIVE); NITRITE, URINE NEGATIVE (NEGATIVE); PROTEIN,URINE 1+ mg/dl (NEGATIVE); UGLUCOSE NEGATIVE (NEGATIVE); UROBILINOGEN,URINE 0.2 EU/dL (0.2)
[2018-09-09 00:39] LABS: BACTERIA,URINE Few /HPF (None Seen); SQUAMOUS EPITHELIAL CELL,UR Few /HPF (None Seen); WBC,URINE TOO NUMEROUS TO COUN /HPF (0-3)
[2018-09-09 00:41] LABS: CALCIUM, SERUM 9.2 mg/dL (8.5-10.1); CARBON DIOXIDE 27 mmol/L (21-32); CHLORIDE 104 mmol/L (98-107); CREATININE 1.6 mg/dL (0.6-1.3); GLUCOSE 95 mg/dL (74-106); POTASSIUM 4.3 mmol/L (3.5-5.1); SODIUM SERUM 139 mmol/L (136-145); UREA NITROGEN, BLOOD 37 mg/dL (7-18)
[2018-09-09 00:47] LABS: ALANINE AMINOTRANSFERASE 31 U/L (12-78); ALBUMIN 2.1 g/dL (3.4-5.0); ALKALINE PHOSPHATASE 73 U/L (46-116); ASPARTATE AMINOTRANSFERASE 50 U/L (15-37); BILIRUBIN,DIRECT 0.2 mg/dL (0.0-0.2); BILIRUBIN,TOTAL 0.3 mg/dL (0.2-1.0); LIPASE 477 U/L (73-393); TOTAL PROTEIN, SERUM 6.1 g/dL (6.4-8.2)
[2018-09-09] MEDS ORDERED: CEFTRIAXONE 1 G in IV D5W 50 ML IV ONE (01:00)
[2018-09-09] MEDS ORDERED: CEFTRIAXONE 1GM BAG (ER ONLY) 50 ML IV ONE (01:04)
--- NOTE | 2018-09-09 01:05 | NUR ---
end time for rocephin: [id number]
--- NOTE | 2018-09-09 02:38 | NUR ---
REPORT GIVEN TO rotary shear operator FROM [facility]
--- NOTE | 2018-09-09 02:46 | NUR ---
pt was picked up by cristian ramirez in stable condition
[2018-09-09 03:12] VITALS: BP 106/60
== END 2018-09-09 02:46 | disposition home or self-care (01) ==
LOC: ER 21:44
DX: N39.0 Urinary tract infection, site not specified (principal); E86.0 Dehydration; K21.9 Gastro-esophageal reflux disease without esophagitis; G40.909 Epilepsy, unspecified, not intractable, without status epilepticus; K50.90 Crohn's disease, unspecified, without complications; F32.9 Major depressive disorder, single episode, unspecified; E78.5 Hyperlipidemia, unspecified; I25.10 Atherosclerotic heart disease of native coronary artery without angina pectoris; I12.9 Hypertensive chronic kidney disease with stage 1 through stage 4 chronic kidney disease, or unspecified chronic kidney disease; N18.9 Chronic kidney disease, unspecified; R23.8 Other skin changes; Z90.49 Acquired absence of other specified parts of digestive tract; Z95.5 Presence of coronary angioplasty implant and graft; Z86.718 Personal history of other venous thrombosis and embolism; Z98.890 Other specified postprocedural states; Z88.5 Allergy status to narcotic agent; Z79.82 Long term (current) use of aspirin; Z88.8 Allergy status to other drugs, medicaments and biological substances
CPT/HCPCS: 36415; 80048; 80076; 81001; 83690; 85025; 87077; 87086; 87186 ×2; 96361; 96365; 99283; J0696; J7030; J7060; 81000-TC

== ENCOUNTER 2021-07-11 09:47 | Inpatient (IN) | payer MEDICARE, OTHER ==
[~2021-07-11] VITALS: Ht 172.7 cm; Wt 94.3 kg
[~2021-07-11 09:47] MED LIST changes: -CYAN100T3 PO; +CYAN100T44 PO; -MELA3TAB PO; +MELA3TAB41 PO; -SIMV10TA6 PO; +SIMV10TA98 PO
--- NOTE | 2021-07-11 09:48 | NUR ---
TO ER BED 6, BIBRA 88 FROM [place] [facility] AND R C/O SOB X 3 DAYS PER EMS 80% ON 4LPM VIA NC, AAOX3, BREATHING EVEN AND NON LABORED, CONNECTED TO MONITOR, AT BEDSIDE
--- NOTE | 2021-07-11 10:00 | NUR ---
COVID SWAB DONE AND SENT TO LAB
[2021-07-11] MEDS ORDERED: FUROSEMIDE 20 MG/2 ML VIAL IV ONE (10:30)
[2021-07-11] MEDS ORDERED: FUROSEMIDE 20 MG/2 ML VIAL ONE ×2 (10:35→12:33)
[2021-07-11 10:38] LABS: BASOPHILS # (AUTO) 0.1 K/uL (0.0-0.2); BASOPHILS % (AUTO) 1.3 % (0.0-2.0); EOSINOPHILS % (AUTO) 2.1 % (0.0-6.0); HEMATOCRIT 35 % (39-51); LYMPHOCYTES # (AUTO) 1.1 K/uL (0.8-4.8); LYMPHOCYTES % (AUTO) 14.2 % (20.0-44.0); MEAN CORPUSCULAR HGB CONC 32 g/dl (31.0-36.0); MEAN CORPUSCULAR VOLUME 93 fL (80-96); MONOCYTES # (AUTO) 0.6 K/uL (0.1-1.30); MONOCYTES % (AUTO) 7.6 % (2.0-12.0); NEUTROPHILS % (AUTO) 74.8 % (43.0-81.0); PLATELET COUNT (AUTO) 238 K/uL (150-450); RED BLOOD CELL COUNT(AUTO) 3.73 MIL/uL (4.5-6.0)
[2021-07-11] MEDS ORDERED: LEVO137T24 PO (10:39)
[2021-07-11] MEDS ORDERED: APIX5TAB PO (10:39)
[2021-07-11] MEDS ORDERED: ASCO500C17 PO (10:39)
[2021-07-11] MEDS ORDERED: ATOR40TA PO (10:39)
[2021-07-11] MEDS ORDERED: LISI2.5T2 PO (10:39)
[2021-07-11] MEDS ORDERED: SULF500T8 PO (10:39)
[2021-07-11] MEDS ORDERED: CRAN3875 PO (10:40)
[2021-07-11 10:48] LABS: CALCIUM, SERUM 9.1 mg/dL (8.5-10.1); CARBON DIOXIDE 28 mmol/L (21-32); CHLORIDE 105 mmol/L (98-107); GLUCOSE 122 mg/dL (74-106); POTASSIUM 3.1 mmol/L (3.5-5.1); SODIUM SERUM 141 mmol/L (136-145); UREA NITROGEN, BLOOD 15 mg/dL (7-18)
--- NOTE | 2021-07-11 11:00 | NUR ---
RECEIVED PATIENT ON HIGH BACK REST, AWAKE, ALERT, ORIENTED X4. WITH OXYGEN INH AT 5LPM VIA NC. PATIENT HAS PERIPHERAL LINE ON LEFT HAND G20. WITH IFC DRAINING TO YELLOW COLORED URINE. PATIENT HAS BILATERAL SWELLING OF LOWER EXTREMITIES.
[2021-07-11 11:01] LABS: ALANINE AMINOTRANSFERASE 23 U/L (12-78); ALBUMIN 2.7 g/dL (3.4-5.0); ALKALINE PHOSPHATASE 58 U/L (46-116); ASPARTATE AMINOTRANSFERASE 33 U/L (15-37); BILIRUBIN,DIRECT 0.1 mg/dL (0.0-0.2); BILIRUBIN,TOTAL 0.3 mg/dL (0.2-1.0); TOTAL PROTEIN, SERUM 6.6 g/dL (6.4-8.2)
--- NOTE | 2021-07-11 11:10 | NUR ---
RECEIVED A CALL FROM JUNE OF LAB. CRITICAL RESULT OF TROP 204. DR MALLOY MADE AWARE.
--- NOTE | 2021-07-11 11:10 | NUR ---
Caroline castro in EDM - 07/11/21 at 1312 by ZAMZAM RECEIVED A CALL FROM JUNE OF . CRITICAL RESULT OF TROP 204. DR MALLOY MADE AWARE.
--- NOTE | 2021-07-11 11:15 | NUR ---
Caroline castro in [facility] - 07/11/21 at 1313 by ZAMZAM URINE SPECIMEN SENT TO LAB
--- NOTE | 2021-07-11 11:34 | NUR ---
RECEIVED A TELEPHONE ORDER FROM DR. RENE MOTA. TO BE CARRIED OUT.
--- NOTE | 2021-07-11 11:37 | NUR ---
DR. ANDERSON SPEAKING WITH DR. MALLOY.
[2021-07-11] MEDS ORDERED: NITROGLYCERIN PACKET 1 GM PACKET TD ONE (12:30)
[2021-07-11] MEDS ORDERED: FUROSEMIDE 40 MG/4 ML VIAL IV ONE (12:30)
[2021-07-11] MEDS ORDERED: BUMETANIDE INJ 4 MG in IV D5W 24 ML IV ONE (12:30)
[2021-07-11] MEDS ORDERED: ENOXAPARIN SODIUM 40 MG/0.4 ML DISP.SYRIN SQ SCH (12:30)
[2021-07-11] MEDS ORDERED: NITROGLYCERIN PACKET 1 GM PACKET ONE (12:33)
--- NOTE | 2021-07-11 12:40 | NUR ---
BP 175/94mmHg, LASIX 20mg IV given, NITRO PATCH 1gm APPLIED ON LEFT ANTERIOR CHEST.
[2021-07-11] MEDS: POTASSIUM CL. PREMIX PERIPHER. 50 ML IV SCH ×6 (13:30→22:06)
[2021-07-11] MEDS ORDERED: ASPIRIN 81 MG TAB.CHEW PO ONE (13:30)
[2021-07-11] MEDS ORDERED: ENOXAPARIN SODIUM 40 MG/0.4 ML DISP.SYRIN SQ ONE (14:09)
[2021-07-11] MEDS ORDERED: ASPIRIN 81 MG TAB.CHEW ONE (14:10)
--- NOTE | 2021-07-11 14:20 | NUR ---
IV CANNULA G20 INSERTED ON RIGHT HAND.
[2021-07-11] MEDS ORDERED: POTASSIUM CL. PREMIX PERIPHER. 50 ML ONE (15:55)
--- NOTE | 2021-07-11 15:55 | NUR ---
GOT BED 328-2
--- NOTE | 2021-07-11 16:52 | NUR ---
REPORT GIVEN TO GRICELDA MONTANA
[2021-07-11] MEDS ORDERED: Medication Not On Formulary EA (Melatonin 3 MG) PO PRN (18:30)
[2021-07-11 19:12] VITALS: BP 155/92
--- NOTE | 2021-07-11 19:33 | NUR ---
RN CLOSING NOTE PATIENT WAS TRANSFER FROM ER. REPORT RECEIVED BY ER NURSE(ANNAMARIA). PATIENT WAS ORIENTED TO ROOM SET UP AND SHOWED PATIENT HOW TO USE CALL LIGHT. PATIENT AWAKE IN BED RESTING, A/O X4. NO S/S OF PAIN NOTED AT THIS TIME. ON ROOM AIR, NO DISTRESS OR SHORTNESS OF BREATH NOTED. IV ACCESS L HAND #[id number], INTACT, PATENT AND FLUSHING WELL. FALL AND SAFETY MEASURES IN PLACE, BED ALARM ON BED IN LOW AND LOCK POSITION, CALL LIGHT AND TABLE WITHIN EASY REACH, SIDE RAILS UP X2. WILL ENDORSE TO PHYSICAL THERAPY ASSISTANT INSTRUCTOR.
[2021-07-11 20:00] VITALS: BP 159/84
--- NOTE | 2021-07-11 20:38 | NUR ---
MS/TELE/RN SPOKE WITH THE PHARMACY RE: POTASSIUM. PER PHARMACY GIVE THREE MORE DOSES ONLY THE PATIENT RECEIVED ALREADY ONE DOSE IN THE E.R.
[2021-07-11] MEDS: CALCIUM CARBONATE 500 MG TAB.CHEW PO SCH (20:44)
--- NOTE | 2021-07-11 21:25 | NUR ---
MS/TELE/RN PATIENT IS AWAKE ALERT, ORIENTED, NO C/O PAIN, NO SIGNS OF DISTRESS NOTED, FALL PRECAUTIONS PER PROTOCOL IMPLEMENTED, CALL LIGHT IN REACH, WILL MONITOR.
[2021-07-11] MEDS: ATORVASTATIN 40 MG TABLET PO SCH (22:08)
[2021-07-11] MEDS: TRAMADOL HCL 50 MG TABLET PO PRN (23:01)
[2021-07-12] VITALS: BP 140/90
[2021-07-12] MEDS: POTASSIUM CL. PREMIX PERIPHER. 50 ML IV SCH (00:10)
[2021-07-12 04:00] VITALS: BP 150/87
--- NOTE | 2021-07-12 06:16 | NUR ---
MS/TELE/RN PATIENT IS AWAKE AT THIS THIS TIME, NO C/O PAIN, NO SIGNS OF DISTRESS NOTED, CALL LIGHT IN REACH, ALL NEEDS ATTENDED AT THIS TIME, WILL CONTINUE TO MONITOR.
[2021-07-12 06:39] LABS: BASOPHILS # (AUTO) 0.1 K/uL (0.0-0.2); BASOPHILS % (AUTO) 1.1 % (0.0-2.0); EOSINOPHILS % (AUTO) 6.2 % (0.0-6.0); HEMATOCRIT 31 % (39-51); LYMPHOCYTES # (AUTO) 1.3 K/uL (0.8-4.8); LYMPHOCYTES % (AUTO) 18.3 % (20.0-44.0); MEAN CORPUSCULAR HGB CONC 32 g/dl (31.0-36.0); MEAN CORPUSCULAR VOLUME 93 fL (80-96); MONOCYTES # (AUTO) 0.7 K/uL (0.1-1.30); MONOCYTES % (AUTO) 9.3 % (2.0-12.0); NEUTROPHILS # (AUTO) 4.8 K/uL (1.8-8.9); NEUTROPHILS % (AUTO) 65.1 % (43.0-81.0); PLATELET COUNT (AUTO) 197 K/uL (150-450); RED BLOOD CELL COUNT(AUTO) 3.32 MIL/uL (4.5-6.0); WHITE BLOOD COUNT (AUTO) 7.3 K/uL (4.3-11.0)
[2021-07-12 07:05] LABS: CARBON DIOXIDE 30 mmol/L (21-32); CHLORIDE 107 mmol/L (98-107); GLUCOSE 96 mg/dL (74-106); MAGNESIUM 1.6 mg/dL (1.8-2.4); PHOSPHORUS 4.3 mg/dL (2.5-4.9); POTASSIUM 3.3 mmol/L (3.5-5.1); SODIUM SERUM 144 mmol/L (136-145); UREA NITROGEN, BLOOD 16 mg/dL (7-18)
--- NOTE | 2021-07-12 07:30 | NUR ---
ms rn received on bed, awake,alert,oriented x4.not in any form of distress, respirations even and unlabored,no sob noted, lungs have ronchis bilateraly, abdomen soft,positive bowel sounds,denies pain at this time, will monitor patient.
[2021-07-12 07:42] LABS: CALCIUM, SERUM 8.9 mg/dL (8.5-10.1)
[2021-07-12 08:58] VITALS: BP 151/85
[2021-07-12] MEDS ORDERED: ENOXAPARIN SODIUM 40 MG/0.4 ML DISP.SYRIN SQ SCH (09:00)
[2021-07-12] MEDS ORDERED: METOPROLOL TARTRATE 25 MG TABLET PO SCH (09:00)
[2021-07-12] MEDS ORDERED: LISINOPRIL (5MG) 5 MG TABLET PO SCH (09:00)
[2021-07-12] MEDS ORDERED: Medication Not On Formulary EA (Calcium Carbonate/Vitamin D3 (Calcium 500 + Vit D 200 Ta PO SCH (09:00)
[2021-07-12] MEDS ORDERED: Medication Not On Formulary EA (Cran/Vitc/Mannose/Inulin/Brom (Uti-Stat Liquid) 30 ML) PO SCH (09:00)
[2021-07-12] MEDS: MULTIVIT W/MINERALS 1 TAB TABLET PO SCH (09:05)
[2021-07-12] MEDS: SULFASALAZINE 500 MG TABLET PO SCH ×2 (09:05→17:44)
[2021-07-12] MEDS: CYANOCOBALAMIN 100 MCG TABLET PO SCH (09:05)
[2021-07-12] MEDS: LEVETIRACETAM (250 MG) 250 MG TABLET PO SCH ×2 (09:05→17:44)
[2021-07-12] MEDS: CHOLECALCIFEROL 1,000 UNIT TABLET (VIT D3) PO SCH (09:05)
[2021-07-12] MEDS: CALCIUM CARBONATE 500 MG TAB.CHEW PO SCH ×2 (09:05→21:18)
[2021-07-12] MEDS: BACLOFEN (10 MG) 10 MG TABLET PO SCH ×2 (09:05→17:44)
[2021-07-12] MEDS: ASPIRIN 81 MG TAB.CHEW PO SCH (09:06)
[2021-07-12] MEDS: LEVOTHYROXINE SODIUM 137 MCG TABLET PO SCH (09:06)
[2021-07-12] MEDS: ASCORBIC ACID 500 MG TABLET PO SCH (09:06)
[2021-07-12] MEDS: ENOXAPARIN SODIUM 100 MG/ML DISP.SYRIN SQ SCH ×2 (09:08→21:19)
--- NOTE | 2021-07-12 09:13 | NUR ---
WOUND CARE CONSULT: PT PRESENTS WITH REDNESS AND EDEMA WITH DRY SCALY SKIN TO LOWER LEGS, PRESENT ON ADMISSION. DR COLLINS NOTIFIED OF DPM CONSULT REQUEST. RECOMMENDATIONS MADE FOR SKIN PROTECTION. DISCUSSED WITH NURSING STAFF. MD IN AGREEMENT WITH PLAN OF CARE.
--- NOTE | 2021-07-12 09:20 | NUR ---
ms farris breakfast served,due meds given,tolerated well.
[2021-07-12] MEDS ORDERED: Z GUARD REMEDY 4 OZ OINT TP PRN (09:30)
[2021-07-12] MEDS ORDERED: POTASSIUM CHLORIDE 20 MEQ TAB.PRT.SR PO SCH (10:00)
[2021-07-12] MEDS ORDERED: MAGNESIUM OXIDE 400 MG TABLET PO ONE (10:00)
--- NOTE | 2021-07-12 10:00 | NUR ---
ms farris breakfast served,due meds given tolerated well.
[2021-07-12] MEDS: Z GUARD REMEDY 4 OZ OINT TP SCH (10:27)
--- NOTE | 2021-07-12 10:30 | NUR ---
ms rn was seen by dr. roland gonzalez/ deangelo rodriguez, tolerated well.
[2021-07-12] MEDS: FUROSEMIDE 40 MG/4 ML VIAL IV SCH ×2 (10:57→17:44)
[2021-07-12 11:57] VITALS: BP 122/69
[2021-07-12] MEDS: BUDESONIDE 3 MG CAP.SR.24H PO SCH (13:08)
--- NOTE | 2021-07-12 14:00 | NUR ---
ms brenton was seen bycarlos olson md/ orders made and carried out.
[2021-07-12 15:52] VITALS: BP 156/91
[2021-07-12] MEDS: VITAMINS A AND D 56.7 GM TUBE TP SCH (17:44)
[2021-07-12] MEDS: METOPROLOL TARTRATE 50 MG TABLET PO SCH (17:47)
--- NOTE | 2021-07-12 19:40 | NUR ---
MESSENGER FLOORPERSON OPENING NOTE RECEIVED PATIENT IN BED, A/OX4. 1 FAMILY MEMBER AT BEDSIDE. NO S/S OF APPARENT DISTRESS ON 3 LPM OF O2 VIA NC. DENIES PAIN AND DISCOMFORT AT THIS TIME. L. HAND #20G IV ACCESS -- NO FLUIDS RUNNING AT THIS TIME. TELE MONITOR READING SR WITH 87 BPM AT THIS TIME. BILATERAL LOWER EXTREMITY DISCOLORATION NOTED. LESLIE CATHETER NOTED-- DRAINING CLEAR, YELLOW URINE. RE-ORIENTED WITH THE USE OF CALL LIGHT. SAFETY IN PLACE. WILL CONTINUE WITH PATIENT'S CARE PLAN.
[2021-07-12 20:00] VITALS: BP 157/85
[2021-07-12] MEDS: ATORVASTATIN 40 MG TABLET PO SCH (21:19)
[2021-07-13] VITALS: BP 137/73
[2021-07-13] MEDS: TRAMADOL HCL 50 MG TABLET PO PRN ×2 (02:25→23:16)
[2021-07-13 04:00] VITALS: BP 107/71
[2021-07-13 06:25] LABS: BASOPHILS # (AUTO) 0.2 K/uL (0.0-0.2); EOSINOPHILS % (AUTO) 5.7 % (0.0-6.0); HEMATOCRIT 32 % (39-51); HEMOGLOBIN 10.1 g/dL (13.5-17.5); LYMPHOCYTES # (AUTO) 1.4 K/uL (0.8-4.8); LYMPHOCYTES % (AUTO) 19.5 % (20.0-44.0); MEAN CORPUSCULAR HGB CONC 32 g/dl (31.0-36.0); MEAN CORPUSCULAR VOLUME 93 fL (80-96); MONOCYTES # (AUTO) 0.7 K/uL (0.1-1.30); MONOCYTES % (AUTO) 10.2 % (2.0-12.0); NEUTROPHILS # (AUTO) 4.5 K/uL (1.8-8.9); NEUTROPHILS % (AUTO) 61.6 % (43.0-81.0); PLATELET COUNT (AUTO) 207 K/uL (150-450); RED BLOOD CELL COUNT(AUTO) 3.42 MIL/uL (4.5-6.0); WHITE BLOOD COUNT (AUTO) 7.2 K/uL (4.3-11.0)
--- NOTE | 2021-07-13 06:54 | NUR ---
ASSOCIATE PROFESSOR OF GEOGRAPHY CLOSING NOTE PATIENT IN BED WITH EYES CLOSED. EASY TO AROUSE. NO S/S OF APPARENT DISTRESS ON ROOM AIR. DENIES PAIN AT THIS TIME, HEADACHE GONE PER PATIENT. TELE MONITOR READING SR WITH 81 BPM THIS MORNING. NO FLUIDS RUNNING AT THIS TIME. NEEDS ATTENDED. ALL SCHEDULED MEDICATION ADMINISTERED.SAFETY KEPT IN PLACE THE WHOLE SHIFT. WILL ENDORSE TO MORNING SHIFT RN FOR CONTINUITY OF CARE.
[2021-07-13 07:19] LABS: CALCIUM, SERUM 8.5 mg/dL (8.5-10.1); MAGNESIUM 1.7 mg/dL (1.8-2.4); PHOSPHORUS 3.7 mg/dL (2.5-4.9); POTASSIUM 3.3 mmol/L (3.5-5.1)
[2021-07-13 08:00] VITALS: BP 158/96
[2021-07-13] MEDS ORDERED: POTASSIUM CHLORIDE 20 MEQ TAB.PRT.SR PO ONE (09:00)
[2021-07-13] MEDS ORDERED: LISINOPRIL (10MG) 10 MG TABLET PO SCH (09:00)
[2021-07-13] MEDS ORDERED: MAGNESIUM OXIDE 400 MG TABLET PO ONE (09:00)
[2021-07-13] MEDS: ENOXAPARIN SODIUM 100 MG/ML DISP.SYRIN SQ SCH ×2 (10:15→21:29)
[2021-07-13] MEDS: LEVOTHYROXINE SODIUM 137 MCG TABLET PO SCH (10:17)
[2021-07-13] MEDS: CYANOCOBALAMIN 100 MCG TABLET PO SCH (10:17)
[2021-07-13] MEDS: MULTIVIT W/MINERALS 1 TAB TABLET PO SCH (10:18)
[2021-07-13] MEDS: BACLOFEN (10 MG) 10 MG TABLET PO SCH ×2 (10:18→17:34)
[2021-07-13] MEDS: ASPIRIN 81 MG TAB.CHEW PO SCH (10:18)
[2021-07-13] MEDS: CHOLECALCIFEROL 1,000 UNIT TABLET (VIT D3) PO SCH (10:18)
[2021-07-13] MEDS: CALCIUM CARBONATE 500 MG TAB.CHEW PO SCH ×2 (10:18→21:29)
[2021-07-13] MEDS: SULFASALAZINE 500 MG TABLET PO SCH ×2 (10:18→17:31)
[2021-07-13] MEDS: ASCORBIC ACID 500 MG TABLET PO SCH (10:19)
[2021-07-13] MEDS: LISINOPRIL (10MG) 10 MG TABLET PO SCH (10:20)
[2021-07-13] MEDS: METOPROLOL TARTRATE 50 MG TABLET PO SCH ×2 (10:20→17:34)
[2021-07-13] MEDS: Z GUARD REMEDY 4 OZ OINT TP SCH (10:24)
[2021-07-13] MEDS: BUDESONIDE 3 MG CAP.SR.24H PO SCH (10:25)
[2021-07-13] MEDS: FUROSEMIDE 40 MG/4 ML VIAL IV SCH ×2 (10:29→17:31)
[2021-07-13] MEDS: LEVETIRACETAM (250 MG) 250 MG TABLET PO SCH ×2 (10:29→17:34)
[2021-07-13] MEDS: VITAMINS A AND D 56.7 GM TUBE TP SCH ×2 (11:28→17:44)
[2021-07-13 12:45] VITALS: BP 148/85
[2021-07-13 16:35] VITALS: BP 154/78
--- NOTE | 2021-07-13 16:39 | NUR ---
resting quietly,med compliant. f/c draining good amt. amna colored urine.
[2021-07-13] MEDS: AMLODIPINE BESYLATE 5 MG TABLET PO SCH (17:36)
--- NOTE | 2021-07-13 19:20 | NUR ---
RN NOTE RECEIVED PT AWAKE IN BED, A/OX4, ABLE TO MAKE NEEDS KNOWN. RESPIRATIONS EVEN/UNLABORED. ON O2 @3LPM. HE DENIES PAIN AT THIS TIME. IV SITE: L_HAND #20G INTACT/PATENT/FLUSHES WELL. F/C DRAINING CLEAR ELADIA URINE. PT IN NO ACUTE DISTRESS. SAFETY MEASURES IN PLACE. WILL CONT TO MONITOR.
[2021-07-13 20:00] VITALS: BP 133/59
[2021-07-13] MEDS: ATORVASTATIN 40 MG TABLET PO SCH (22:16)
--- NOTE | 2021-07-13 23:20 | NUR ---
RN NOTE PT NOTED HAS BEEN TAKING OFF HIS O2 SEVERAL TIMES, STATING THAT IT GIVES HIM A HEADACHE. PT'S DESATS TO 88-90% WITHOUT O2. EXPLAINED TO PT AND ALSO OFFERED PAIN MED. PT COMPLIED. WILL CONT FREQUENT VISUAL CHECK.
[2021-07-14] VITALS: BP 144/92
[2021-07-14 04:00] VITALS: BP 157/73
--- NOTE | 2021-07-14 06:46 | NUR ---
RN NOTE PT RESTING IN BED, EASILY AROUSABLE TO STIMULI. DENIES PAIN AT THIS TIME. RESPIRATIONS EVEN/UNLABORED. ON O2 @2LPM WITH O2 SAT 96%. NO ACUTE DISTRESS NOTED. ALL NEEDS ATTENDED TO. SAFETY MEASURES MAINTAINED.
[2021-07-14 07:05] LABS: CALCIUM, SERUM 8.8 mg/dL (8.5-10.1); MAGNESIUM 1.9 mg/dL (1.8-2.4); POTASSIUM 3.5 mmol/L (3.5-5.1)
[2021-07-14] MEDS: ASCORBIC ACID 500 MG TABLET PO SCH (08:59)
[2021-07-14] MEDS: CHOLECALCIFEROL 1,000 UNIT TABLET (VIT D3) PO SCH (09:00)
[2021-07-14] MEDS: LISINOPRIL (10MG) 10 MG TABLET PO SCH (09:00)
[2021-07-14] MEDS: SULFASALAZINE 500 MG TABLET PO SCH ×2 (09:00→16:45)
[2021-07-14] MEDS: CALCIUM CARBONATE 500 MG TAB.CHEW PO SCH ×2 (09:00→21:51)
[2021-07-14] MEDS: AMLODIPINE BESYLATE 5 MG TABLET PO SCH ×2 (09:00→11:37)
[2021-07-14] MEDS: CYANOCOBALAMIN 100 MCG TABLET PO SCH (09:00)
[2021-07-14] MEDS: MULTIVIT W/MINERALS 1 TAB TABLET PO SCH (09:01)
[2021-07-14] MEDS: ASPIRIN 81 MG TAB.CHEW PO SCH (09:01)
[2021-07-14] MEDS: LEVOTHYROXINE SODIUM 137 MCG TABLET PO SCH (09:01)
[2021-07-14] MEDS: METOPROLOL TARTRATE 50 MG TABLET PO SCH ×2 (09:01→16:45)
[2021-07-14] MEDS: LEVETIRACETAM (250 MG) 250 MG TABLET PO SCH ×2 (09:02→16:45)
[2021-07-14] MEDS: BACLOFEN (10 MG) 10 MG TABLET PO SCH ×2 (09:02→16:45)
[2021-07-14] MEDS: FUROSEMIDE 40 MG/4 ML VIAL IV SCH ×2 (09:02→16:45)
[2021-07-14] MEDS: SPIRONOLACTONE 25 MG TABLET PO SCH (09:02)
[2021-07-14] MEDS: ENOXAPARIN SODIUM 100 MG/ML DISP.SYRIN SQ SCH ×2 (09:03→21:00)
[2021-07-14] MEDS: BUDESONIDE 3 MG CAP.SR.24H PO SCH (09:04)
[2021-07-14] MEDS: Z GUARD REMEDY 4 OZ OINT TP SCH (09:04)
[2021-07-14] MEDS: VITAMINS A AND D 56.7 GM TUBE TP SCH ×2 (09:06→16:46)
[2021-07-14] MEDS: SOD FERRIC GLUC 125 MG in IV NS 0.9% 100 ML IV SCH (14:25)
--- NOTE | 2021-07-14 18:41 | NUR ---
SHIFT SUMMARY VSS, AFEBRILE, A/OX4. ABLE TO MAKE NEEDS KNOWN. IV ACCESS ON L HAND #20 G, INTACT AND PATENT. LESLIE CATHETER IN PLACE DRAINING TEA-COLORED URINE WITH SEDIMENTS, 1L CC OUTPUT. LOVENOX FOR VTE. SAFETY MEASURES MAINTAINED. BED IN LOWEST POSITION, BRAKES, LOCKED. SIDE RAILS UP X2. CALL LIGHT WITHIN REACH. WILL ENDORSE JEANNETTE TO ONCOMING SHIFT.
--- NOTE | 2021-07-14 19:45 | NUR ---
SOCIAL MEDIA CONTENT SPECIALIST OPENING NOTE RECEIVED PT AWAKE IN BED. A/O X4 AND ABLE TO MAKE NEEDS KNOWN. PT ON 2 LPM VIA NC, SATURATING 99%. NO SOB OR S/S OF RESPIRATORY DISTRESS. BREATHING EVEN AND UNLABORED. IV ACCESS L HAND G20 INTACT AND PATENT. LESLIE CATH IN PLACE DRAINING TEA COLORED URINE. SAFETY PRECAUTIONS IN PLACE. BED IN LOWEST LOCKED POSITION, HOB ELEVATED, SIDE RAILS RAISED, AND CALL LIGHT AND TABLE WITHIN REACH. ALL NEEDS MET AT THIS TIME.
[2021-07-14 20:00] VITALS: BP 118/56
[2021-07-14 20:06] VITALS: BP 118/56
[2021-07-14] MEDS: ATORVASTATIN 40 MG TABLET PO SCH (21:51)
--- NOTE | 2021-07-14 21:57 | NUR ---
RN NOTE LEFT MESSAGE FOR MD ON WHETHER TO ADMINISTER LOVENOX SINCE PT IS SCHEDULED FOR PROCEDURE TOMORROW. STILL WAITING FOR RESPONSE. WILL HOLD UNTIL ORDER IS GIVEN BY PROVIDER.
--- NOTE | 2021-07-14 22:24 | NUR ---
RN NOTE PER DR NICOLAS, HOLD LOVENOX TONIGHT AND TOMORROW MORNING FOR PROCEDURE TOMORROW. HELD LOVENOX ORDERED. WILL ENDORSE TO DAY SHIFT NURSE TOMORROW OF NEW ORDER.
[2021-07-15] VITALS (14 sets, daily range): BP systolic 118–165; BP diastolic 47–91
[2021-07-15 06:32] LABS: BASOPHILS % (AUTO) 0.7 % (0.0-2.0); EOSINOPHILS % (AUTO) 4.3 % (0.0-6.0); HEMATOCRIT 30 % (39-51); HEMOGLOBIN 9.7 g/dL (13.5-17.5); LYMPHOCYTES % (AUTO) 17.9 % (20.0-44.0); MEAN CORPUSCULAR HGB CONC 32 g/dl (31.0-36.0); MEAN CORPUSCULAR VOLUME 93 fL (80-96); MONOCYTES # (AUTO) 0.5 K/uL (0.1-1.30); MONOCYTES % (AUTO) 8.9 % (2.0-12.0); NEUTROPHILS # (AUTO) 3.7 K/uL (1.8-8.9); NEUTROPHILS % (AUTO) 68.2 % (43.0-81.0); PLATELET COUNT (AUTO) 178 K/uL (150-450); RED BLOOD CELL COUNT(AUTO) 3.27 MIL/uL (4.5-6.0); WHITE BLOOD COUNT (AUTO) 5.5 K/uL (4.3-11.0)
--- NOTE | 2021-07-15 06:47 | NUR ---
SUPERVISOR SOLDER MAKING CLOSING NOTE PT AWAKE IN BED. A/O X4 AND ABLE TO MAKE NEEDS KNOWN. PT ON 2 LPM VIA NC, SATURATING 99%. NO SOB OR S/S OF RESPIRATORY DISTRESS. BREATHING EVEN AND UNLABORED. ON EXTERNAL SAMPLE SHOE INSPECTOR AND REWORKER READING SR 76 BPM. IV ACCESS L HAND G20 INTACT AND PATENT. LESLIE CATH IN PLACE DRAINING TEA COLORED URINE. ALL DUE MEDS GIVEN ORDERED. SAFETY PRECAUTIONS IN PLACE. BED IN LOWEST LOCKED POSITION, HOB ELEVATED, SIDE RAILS RAISED, AND CALL LIGHT AND TABLE WITHIN REACH. ALL NEEDS MET AT THIS TIME AND WILL ENDORSE TO ONCOMING NURSE FOR JEANNETTE.
[2021-07-15 06:58] LABS: CALCIUM, SERUM 8.8 mg/dL (8.5-10.1); MAGNESIUM 1.9 mg/dL (1.8-2.4); PHOSPHORUS 3.5 mg/dL (2.5-4.9); POTASSIUM 3.4 mmol/L (3.5-5.1)
[2021-07-15] MEDS ORDERED: LIDOCAINE 1% INJ 50 ML MDV IJ ONE (07:02)
[2021-07-15] MEDS ORDERED: NITROGLYCERIN IN 5 % DEXTROSE 250 ML IV ONE (07:03)
[2021-07-15] MEDS ORDERED: IODIXANOL 150 ML IV ONE ×2 (07:03→14:27)
[2021-07-15] MEDS ORDERED: FENTANYL PF 100MCG/2ML AMPUL ONE (07:16)
[2021-07-15] MEDS ORDERED: MIDAZOLAM HCL 2 MG/2ML VIAL ONE (07:17)
[2021-07-15] MEDS ORDERED: IV NS 0.9% 1,000 ML ONE ×2 (07:23→14:27)
[2021-07-15] MEDS ORDERED: IV SET PRIMARY PUMP SET 1 EA INFUS.SET MC ONE ×2 (07:23→14:27)
--- NOTE | 2021-07-15 07:26 | NUR ---
ALBERENE STONE SETTER OPENING NOTE RECEIVED PATIENT ASLEEP IN BED, EASILY AROUSE. A/OX4, ABLE TO MAKE NEEDS KNOWN. ON O2 AT 2L/MIN VIA NASAL CANNULA, TOLERATING WELL. BREATHING EVEN AND UNLABORED. NOT IN ANY SIGN OF DISTRESS. ON TELE CUSTOMER SUCCESS SPECIALIST, WITH CURRENT READING OF SR, HR 68, NO COMPLAIN OF CARDIAC DISCOMFORT OR DISTRESS VOICED AT THIS TIME. L- HAND G #20, INTACT AND PATENT. SAFETY MEASURES IN PLACE: BED LOCKED, AT LOWEST POSITION, RAILS UP X3, CALL MORA WITHIN REACH. BED ALARM ON. WILL CONTINUE TO MONITOR PATIENT.
[2021-07-15] MEDS: SPIRONOLACTONE 25 MG TABLET PO SCH (09:00)
[2021-07-15] MEDS: LEVOTHYROXINE SODIUM 137 MCG TABLET PO SCH (09:00)
[2021-07-15] MEDS: ASCORBIC ACID 500 MG TABLET PO SCH (09:00)
[2021-07-15] MEDS: BUDESONIDE 3 MG CAP.SR.24H PO SCH (09:00)
[2021-07-15] MEDS: LISINOPRIL (10MG) 10 MG TABLET PO SCH (09:00)
[2021-07-15] MEDS: CYANOCOBALAMIN 100 MCG TABLET PO SCH (09:00)
[2021-07-15] MEDS: CHOLECALCIFEROL 1,000 UNIT TABLET (VIT D3) PO SCH (09:00)
[2021-07-15] MEDS: AMLODIPINE BESYLATE 5 MG TABLET PO SCH (09:00)
[2021-07-15] MEDS: LEVETIRACETAM (250 MG) 250 MG TABLET PO SCH ×2 (09:00→18:05)
[2021-07-15] MEDS: ENOXAPARIN SODIUM 100 MG/ML DISP.SYRIN SQ SCH (09:00)
[2021-07-15] MEDS: ASPIRIN 81 MG TAB.CHEW PO SCH (09:00)
[2021-07-15] MEDS: METOPROLOL TARTRATE 50 MG TABLET PO SCH (09:00)
[2021-07-15] MEDS: SULFASALAZINE 500 MG TABLET PO SCH ×2 (09:00→18:53)
[2021-07-15] MEDS: MULTIVIT W/MINERALS 1 TAB TABLET PO SCH (09:00)
[2021-07-15] MEDS: BACLOFEN (10 MG) 10 MG TABLET PO SCH ×2 (09:00→18:03)
[2021-07-15] MEDS: CALCIUM CARBONATE 500 MG TAB.CHEW PO SCH ×2 (09:00→21:30)
--- NOTE | 2021-07-15 09:05 | NUR ---
RN NOTE LOVENOX SCHEDULED AT 0900, NOT ADMINISTERED. PT IS SCHEDULED FOR A LEFT HEART CATH POSSIBLE PCI.
[2021-07-15] MEDS: FUROSEMIDE 40 MG/4 ML VIAL IV SCH ×2 (09:15→18:02)
[2021-07-15] MEDS: Z GUARD REMEDY 4 OZ OINT TP SCH (09:15)
[2021-07-15] MEDS: VITAMINS A AND D 56.7 GM TUBE TP SCH ×2 (09:16→18:03)
[2021-07-15] MEDS: APIXABAN 5 MG TABLET PO SCH ×2 (11:00→18:06)
[2021-07-15] MEDS: POTASSIUM CL. PREMIX PERIPHER. 50 ML IV SCH ×2 (11:11→12:14)
--- NOTE | 2021-07-15 11:30 | NUR ---
RN NOTE ELIQUIS SCHEDULED AT 1100, NOT ADMINISTERED. PT IS NPO AND IS SCHEDULED FOR A LEFT HEART CATH POSSIBLE PCI.
[2021-07-15] MEDS: SOD FERRIC GLUC 125 MG in IV NS 0.9% 100 ML IV SCH (14:07)
--- NOTE | 2021-07-15 14:30 | NUR ---
RN NOTE PT LEFT THE UNIT AT 1428 TO BRAIN SURGEON PICKED UP BY GRICELDA BROUSSARD BY BED FOR A PROCEDURE OF L HEART CATH POSSIBLE PCI.
[2021-07-15] MEDS ORDERED: NICARDIPINE HCL 25 MG/10 ML VIAL IV ONE (16:08)
--- NOTE | 2021-07-15 16:40 | NUR ---
RN NOTE RECEIVED A CALL FROM GRICELDA BROUSSARD. PER AARTI PT WAS TRANSFERED TO ICU FOR CLOSE MONITORING. CALLED ICU AND GAVE REPORT TO GRICELDA CAIN.
--- NOTE | 2021-07-15 17:00 | NUR ---
RN NOTE RECEIVED PATIENT FROM LUMBER INSPECTOR. PATIENT AWAKE, ALERT/ORIENTED X 4. ON O2 2LPM VIA NC. BREATHING EVEN AND UNLABORED. NO SOB OR ANY ACUTE DISTRESS NOTED AT THE TIME. S/P CATH PROCEDURE ON RIGHT GROIN. DRESSING C/D/I, NO BLEEDING NOTED ON SITE. IV ACCESS ON LEFT AC #18 AND LEFT HAND, PATENT AND INTACT. ALL SAFETY MEASURES IMPLEMENTED. BED LOCKED IN LOWEST POSITION WITH CALL LIGHT WITHIN REACH. BED IN FLAT POSITION WITH BED ALARM ON. WILL CONTINUE TO MONITOR AND ASSESS FOR ANY CHANGES DURING SHIFT.
--- NOTE | 2021-07-15 18:00 | NUR ---
RN NOTE AZULFIDINE MED NOT AVAILABLE IN [facility], SPOKE TO PHARMACY. AWAITING FOR PHARMACY TO BRING MED TO UNIT. PATIENT CONSUMED 25% OF DINNER TRAY. ALL NEEDS ANTICIPATED. ALL SAFETY MEASURES IMPLEMENTED. CALL LIGHT WITHIN REACH.
[2021-07-15] MEDS: hydrALAZINE HCL 25 MG TABLET PO SCH (18:02)
[2021-07-15] MEDS: CARVEDILOL 12.5 MG TABLET PO SCH (18:02)
--- NOTE | 2021-07-15 19:18 | NUR ---
RN CLOSING NOTE NO SIGNIFICANT CHANGES DURING SHIFT, PATIENT REMAINS IN STABLE CONDITION. PATIENT AWAKE, ALERT/ORIENTED X 4. ON O2 2LPM VIA NC. BREATHING EVEN AND UNLABORED. NO SOB OR ANY ACUTE DISTRESS NOTED AT THE TIME. S/P CATH PROCEDURE ON RIGHT GROIN. DRESSING C/D/I, SCANT BLEEDING NOTED ON SITE. IV ACCESS ON , NICOLE MIDLINE, LEFT AC #18 AND LEFT HAND, PATENT AND INTACT. ALL DUE MEDS GIVEN ORDERED. KEPT PATIENT CLEAN AND COMFORTABLE. ALL SAFETY MEASURES IMPLEMENTED. BED LOCKED IN LOWEST POSITION WITH CALL LIGHT WITHIN REACH. BED IN FLAT POSITION WITH BED ALARM ON. ENDORSED TO INSPECTOR CANNED FOOD RECONDITIONING NURSE FOR CONTINUITY OF CARE.
[2021-07-15] MEDS: ATORVASTATIN 40 MG TABLET PO SCH (21:30)
--- NOTE | 2021-07-15 21:30 | NUR ---
ICU/RECREATION TECHNICIAN NEW DRESSING APPLIED TO RIGHT GROINING AREA. DRESSING WAS SATURATED WITH BLOOD BUT NO BRUISING SEEN OR NOTED. APPLIED NEW DRESSING TO AREA, WILL MONITOR THIS PT.
[2021-07-16] VITALS (17 sets, daily range): BP systolic 126–168; BP diastolic 48–80
[2021-07-16] MEDS: TRAMADOL HCL 50 MG TABLET PO PRN (01:12)
--- NOTE | 2021-07-16 01:15 | NUR ---
ICU/ACCESS MANAGER ULTRAM PRN GIVEN FOR PAIN LEVEL 8/10, TO GENERALIZED ALL OVER PAIN. WILL MONITOR THIS PT AND HIS PAIN.
[2021-07-16 04:45] LABS: BASOPHILS # (AUTO) 0.1 K/uL (0.0-0.2); EOSINOPHILS % (AUTO) 4.5 % (0.0-6.0); HEMATOCRIT 29 % (39-51); HEMOGLOBIN 9.3 g/dL (13.5-17.5); LYMPHOCYTES # (AUTO) 1.1 K/uL (0.8-4.8); LYMPHOCYTES % (AUTO) 17.1 % (20.0-44.0); MEAN CORPUSCULAR HGB CONC 32 g/dl (31.0-36.0); MEAN CORPUSCULAR VOLUME 93 fL (80-96); MONOCYTES # (AUTO) 0.6 K/uL (0.1-1.30); MONOCYTES % (AUTO) 9.2 % (2.0-12.0); NEUTROPHILS # (AUTO) 4.3 K/uL (1.8-8.9); NEUTROPHILS % (AUTO) 68.2 % (43.0-81.0); PLATELET COUNT (AUTO) 177 K/uL (150-450); RED BLOOD CELL COUNT(AUTO) 3.13 MIL/uL (4.5-6.0); WHITE BLOOD COUNT (AUTO) 6.3 K/uL (4.3-11.0)
[2021-07-16 05:02] LABS: CALCIUM, SERUM 8.3 mg/dL (8.5-10.1); CARBON DIOXIDE 37 mmol/L (21-32); CHLORIDE 103 mmol/L (98-107); GLUCOSE 88 mg/dL (74-106); MAGNESIUM 1.8 mg/dL (1.8-2.4); PHOSPHORUS 3.8 mg/dL (2.5-4.9); POTASSIUM 3.5 mmol/L (3.5-5.1); SODIUM SERUM 144 mmol/L (136-145); UREA NITROGEN, BLOOD 18 mg/dL (7-18)
--- NOTE | 2021-07-16 05:45 | NUR ---
ICU/EMPLOYMENT CLERK DRESSING TO RIGHT GROIN HAD BLOODY DRESSING, THIS WAS CHANGED AND A NEW DRESSING WAS MADE NEW.
--- NOTE | 2021-07-16 07:20 | NUR ---
RN OPENING NOTE PATIENT RECEIVED IN BED, AWAKE, A&OX4. PT ON 1L O2 NC WITH NO SIGNS OF LABORED BREATHING SAT 97% ON BEDSIDE MONITOR. LESLIE CATH IN PLACE, PATENT AND DRAINING URINE. LEFT AC 20G AND RIGHT UA MIDLINE IN PLACE. BED LOCKED AND IN LOWEST POSITION, CALL LIGHT WITHIN REACH, 2 SIDE RAILS UP.
[2021-07-16] MEDS: MULTIVIT W/MINERALS 1 TAB TABLET PO SCH (09:08)
[2021-07-16] MEDS: BUDESONIDE 3 MG CAP.SR.24H PO SCH (09:08)
[2021-07-16] MEDS: LOSARTAN POTASSIUM 50 MG TABLET PO SCH (09:09)
[2021-07-16] MEDS: LEVOTHYROXINE SODIUM 137 MCG TABLET PO SCH (09:09)
[2021-07-16] MEDS: SPIRONOLACTONE 25 MG TABLET PO SCH (09:09)
[2021-07-16] MEDS: LEVETIRACETAM (250 MG) 250 MG TABLET PO SCH ×2 (09:09→16:17)
[2021-07-16] MEDS: CARVEDILOL 12.5 MG TABLET PO SCH ×2 (09:09→16:18)
[2021-07-16] MEDS: CALCIUM CARBONATE 500 MG TAB.CHEW PO SCH ×2 (09:09→21:00)
[2021-07-16] MEDS: hydrALAZINE HCL 25 MG TABLET PO SCH ×3 (09:09→16:18)
[2021-07-16] MEDS: ASCORBIC ACID 500 MG TABLET PO SCH (09:09)
[2021-07-16] MEDS: CHOLECALCIFEROL 1,000 UNIT TABLET (VIT D3) PO SCH (09:09)
[2021-07-16] MEDS: ASPIRIN 81 MG TAB.CHEW PO SCH (09:09)
[2021-07-16] MEDS: SULFASALAZINE 500 MG TABLET PO SCH ×2 (09:10→17:58)
[2021-07-16] MEDS: FUROSEMIDE 40 MG/4 ML VIAL IV SCH ×2 (09:10→16:17)
[2021-07-16] MEDS: BACLOFEN (10 MG) 10 MG TABLET PO SCH ×2 (09:10→16:19)
[2021-07-16] MEDS: APIXABAN 5 MG TABLET PO SCH ×2 (09:11→16:20)
[2021-07-16] MEDS: Z GUARD REMEDY 4 OZ OINT TP SCH (09:43)
[2021-07-16] MEDS: CYANOCOBALAMIN 100 MCG TABLET PO SCH (09:43)
[2021-07-16] MEDS: VITAMINS A AND D 56.7 GM TUBE TP SCH ×2 (09:43→16:25)
--- NOTE | 2021-07-16 12:27 | NUR ---
RN NOTE SURGICAL DRESSING BLOODY. CHANGED WITH CLEAN DRESSING. PT DOES NOT REPORT PAIN, BP AND HR STABLE.
--- NOTE | 2021-07-16 14:30 | NUR ---
RN NOTE PATIENT TRANSFERRED TO [facility] ROOM 116-1. REPORT GIVEN TO TERA FOR JEANNETTE.
--- NOTE | 2021-07-16 14:32 | NUR ---
RN NOTE RECEIVED PATIENT IN BED RESTING ALERT ORIENTEDX4 VERBALLY RESPONSIVE ON 2L OXYGEN VIA NASAL CANNULA,O2:92% IV SITE IS ON RIGHT UPPER ARM MIDLINE AND LEFT HAND INTACT PATENT LESLIE CATHETER IN PLACE URINE DRAINING YELLOW AND CLEAR.SAFETY MEASURE IMPLEMENT HEAD OF THE BED ELEVATED,CALL LIGHT WITHIN REACH CONTINUE TO MONITOR.
[2021-07-16] MEDS: SOD FERRIC GLUC 125 MG in IV NS 0.9% 100 ML IV SCH (14:33)
--- NOTE | 2021-07-16 18:54 | NUR ---
RN NOTE PATIENT REAMING ALERT ORIENTEDX4 VERBALLY RESPONSIVE NO SOB NOT ACUTE DISTRESS NOTED,ALL DUE MEDS GIVEN MD ORDERED KEPT CLEAN AND DRY ALL THE TIME,ENDORSE NEXT COMING SHIFT FOR CONTINUATION OF CARE.
--- NOTE | 2021-07-16 19:15 | NUR ---
Received thorough report from staff BEVERLY Rodriguez using SBAR method right outside pts room just before entering pt's room and meeting pt. Initial assessment performed. Pt has good color, temp and appearance, appears slightly pale, but could be pts normal appearance. VSS, JENNIFER WNL, NAD. Pt has good distal pulses x4exxt Addendum: 07/16/21 at 2222 by [facility]ISTRY [facility] RN2 RN strong and equal show host strength bilat, SR with rare to occ PACs Pt denies any pain, sob, n/v, dizziness or discomfort. No s/sx of distress present.
[2021-07-16] MEDS: ATORVASTATIN 40 MG TABLET PO SCH (22:11)
[2021-07-17] VITALS (7 sets, daily range): BP systolic 124–155; BP diastolic 50–74
--- NOTE | 2021-07-17 07:10 | NUR ---
RN NOTE RECEIVED PATIENT IN BED RESTING ALERT ORIENTEDX4 VERBALLY RESPONSIVE ON 2L OXYGEN VIA NASAL CANNULA,O2:96% IV SITE IS ON RIGHT UPPER ARM MIDLINE AND LEFT HAND INTACT PATENT LESLIE CATHETER IN PLACE URINE DRAINING YELLOW AND CLEAR.SAFETY MEASURE IMPLEMENT HEAD OF THE BED ELEVATED,CALL LIGHT WITHIN REACH CONTINUE TO MONITOR.
[2021-07-17 07:39] LABS: BASOPHILS # (AUTO) 0.1 K/uL (0.0-0.2); BASOPHILS % (AUTO) 0.8 % (0.0-2.0); EOSINOPHILS % (AUTO) 6.8 % (0.0-6.0); HEMATOCRIT 30 % (39-51); HEMOGLOBIN 9.7 g/dL (13.5-17.5); LYMPHOCYTES # (AUTO) 0.9 K/uL (0.8-4.8); LYMPHOCYTES % (AUTO) 13.2 % (20.0-44.0); MEAN CORPUSCULAR HGB CONC 33 g/dl (31.0-36.0); MEAN CORPUSCULAR VOLUME 93 fL (80-96); MONOCYTES # (AUTO) 0.6 K/uL (0.1-1.30); NEUTROPHILS # (AUTO) 4.7 K/uL (1.8-8.9); NEUTROPHILS % (AUTO) 70.2 % (43.0-81.0); PLATELET COUNT (AUTO) 185 K/uL (150-450); RED BLOOD CELL COUNT(AUTO) 3.19 MIL/uL (4.5-6.0); WHITE BLOOD COUNT (AUTO) 6.6 K/uL (4.3-11.0)
[2021-07-17 07:54] LABS: CALCIUM, SERUM 8.7 mg/dL (8.5-10.1); PHOSPHORUS 3.6 mg/dL (2.5-4.9); POTASSIUM 3.3 mmol/L (3.5-5.1)
[2021-07-17] MEDS: BUDESONIDE 3 MG CAP.SR.24H PO SCH (08:32)
[2021-07-17] MEDS: CALCIUM CARBONATE 500 MG TAB.CHEW PO SCH ×2 (08:32→22:28)
[2021-07-17] MEDS: SULFASALAZINE 500 MG TABLET PO SCH ×2 (08:32→16:04)
[2021-07-17] MEDS: ASCORBIC ACID 500 MG TABLET PO SCH (08:32)
[2021-07-17] MEDS: LEVETIRACETAM (250 MG) 250 MG TABLET PO SCH ×2 (08:33→16:05)
[2021-07-17] MEDS: BACLOFEN (10 MG) 10 MG TABLET PO SCH ×2 (08:33→16:05)
[2021-07-17] MEDS: CHOLECALCIFEROL 1,000 UNIT TABLET (VIT D3) PO SCH (08:33)
[2021-07-17] MEDS: MULTIVIT W/MINERALS 1 TAB TABLET PO SCH (08:33)
[2021-07-17] MEDS: ASPIRIN 81 MG TAB.CHEW PO SCH (08:33)
[2021-07-17] MEDS: FUROSEMIDE 40 MG/4 ML VIAL IV SCH ×2 (08:33→16:04)
[2021-07-17] MEDS: LOSARTAN POTASSIUM 50 MG TABLET PO SCH (08:34)
[2021-07-17] MEDS: CARVEDILOL 12.5 MG TABLET PO SCH ×2 (08:34→16:06)
[2021-07-17] MEDS: hydrALAZINE HCL 25 MG TABLET PO SCH ×3 (08:35→16:05)
[2021-07-17] MEDS: SPIRONOLACTONE 25 MG TABLET PO SCH (08:35)
[2021-07-17] MEDS: LEVOTHYROXINE SODIUM 137 MCG TABLET PO SCH (08:35)
[2021-07-17] MEDS: APIXABAN 5 MG TABLET PO SCH ×2 (08:36→16:06)
[2021-07-17] MEDS: VITAMINS A AND D 56.7 GM TUBE TP SCH ×2 (08:42→16:25)
[2021-07-17] MEDS: Z GUARD REMEDY 4 OZ OINT TP SCH (08:42)
[2021-07-17] MEDS: CYANOCOBALAMIN 100 MCG TABLET PO SCH (08:59)
[2021-07-17] MEDS ORDERED: POTASSIUM CHLORIDE 20 MEQ TAB.PRT.SR PO SCH (10:00)
[2021-07-17] MEDS: SOD FERRIC GLUC 125 MG in IV NS 0.9% 100 ML IV SCH (14:21)
--- NOTE | 2021-07-17 18:16 | NUR ---
RN NOTE PATIENT REMAINS ALERT ORIENTED X4 VERBALLY RESPONSIVE NO SOB NOT ACUTE DISTRESS NOTED,ON 2L OXYGEN VIA NASAL CANNULA O2:98% ALL DUE MEDS GIVEN MD ORDERED KEPT CLEAN AND DRY KEPT HEAD OF THE BED ELEVATED,KEPT CALL LIGHT WITHIN REACH ENDORSE NEXT COMING SHIFT FOR CONTINUATION OF CARE.
[2021-07-17] MEDS: ATORVASTATIN 40 MG TABLET PO SCH (22:28)
[2021-07-18] VITALS: BP 123/50
[2021-07-18 05:46] VITALS: BP 123/50
[2021-07-18 06:45] LABS: BASOPHILS % (AUTO) 0.8 % (0.0-2.0); EOSINOPHILS % (AUTO) 1.7 % (0.0-6.0); HEMATOCRIT 27 % (39-51); HEMOGLOBIN 8.6 g/dL (13.5-17.5); LYMPHOCYTES # (AUTO) 0.6 K/uL (0.8-4.8); LYMPHOCYTES % (AUTO) 14.3 % (20.0-44.0); MEAN CORPUSCULAR HGB CONC 32 g/dl (31.0-36.0); MEAN CORPUSCULAR VOLUME 92 fL (80-96); MONOCYTES # (AUTO) 0.4 K/uL (0.1-1.30); MONOCYTES % (AUTO) 9.4 % (2.0-12.0); NEUTROPHILS # (AUTO) 3.2 K/uL (1.8-8.9); NEUTROPHILS % (AUTO) 73.8 % (43.0-81.0); PLATELET COUNT (AUTO) 155 K/uL (150-450); RED BLOOD CELL COUNT(AUTO) 2.88 MIL/uL (4.5-6.0); WHITE BLOOD COUNT (AUTO) 4.3 K/uL (4.3-11.0)
[2021-07-18 07:22] LABS: CALCIUM, SERUM 8.3 mg/dL (8.5-10.1); CARBON DIOXIDE 35 mmol/L (21-32); CHLORIDE 102 mmol/L (98-107); CREATININE 1.2 mg/dL (0.6-1.3); GLUCOSE 100 mg/dL (74-106); MAGNESIUM 2.1 mg/dL (1.8-2.4); PHOSPHORUS 3.6 mg/dL (2.5-4.9); POTASSIUM 3.4 mmol/L (3.5-5.1); SODIUM SERUM 143 mmol/L (136-145); UREA NITROGEN, BLOOD 24 mg/dL (7-18)
--- NOTE | 2021-07-18 07:35 | NUR ---
ms rn received on bed, awake,alert,oriented x4,not in any form of distress, respirations even and unlabored,no sob noted, lungs are diminished,abdomen soft,positive bowel sounds,farrell to gravity w/ yellowish urine output,denies pain at this time,all needs attended.
[2021-07-18 08:00] VITALS: BP 129/49
[2021-07-18] MEDS ORDERED: POTASSIUM CHLORIDE 20 MEQ POWDER PACKET PO ONE (08:00)
--- NOTE | 2021-07-18 08:30 | NUR ---
ms farris breakfast served,due meds given,tolerated well.
[2021-07-18] MEDS: BUDESONIDE 3 MG CAP.SR.24H PO SCH (08:53)
[2021-07-18] MEDS: SPIRONOLACTONE 25 MG TABLET PO SCH (08:53)
[2021-07-18] MEDS: SULFASALAZINE 500 MG TABLET PO SCH ×2 (08:53→17:21)
[2021-07-18] MEDS: MULTIVIT W/MINERALS 1 TAB TABLET PO SCH (08:54)
[2021-07-18] MEDS: ASCORBIC ACID 500 MG TABLET PO SCH (08:54)
[2021-07-18] MEDS: CHOLECALCIFEROL 1,000 UNIT TABLET (VIT D3) PO SCH (08:54)
[2021-07-18] MEDS: LEVETIRACETAM (250 MG) 250 MG TABLET PO SCH ×2 (08:54→17:21)
[2021-07-18] MEDS: CYANOCOBALAMIN 100 MCG TABLET PO SCH (08:54)
[2021-07-18] MEDS: BACLOFEN (10 MG) 10 MG TABLET PO SCH ×2 (08:55→17:23)
[2021-07-18] MEDS: ASPIRIN 81 MG TAB.CHEW PO SCH (08:55)
[2021-07-18] MEDS: LEVOTHYROXINE SODIUM 137 MCG TABLET PO SCH (08:55)
[2021-07-18] MEDS: CALCIUM CARBONATE 500 MG TAB.CHEW PO SCH (08:55)
[2021-07-18] MEDS: APIXABAN 5 MG TABLET PO SCH ×2 (08:59→17:26)
[2021-07-18] MEDS: hydrALAZINE HCL 25 MG TABLET PO SCH ×3 (09:00→17:22)
[2021-07-18] MEDS: CARVEDILOL 12.5 MG TABLET PO SCH ×2 (09:00→17:21)
[2021-07-18] MEDS ORDERED: FUROSEMIDE 40 MG TABLET PO SCH (09:00)
[2021-07-18] MEDS: LOSARTAN POTASSIUM 50 MG TABLET PO SCH (09:00)
[2021-07-18 12:00] VITALS: BP 120/56
--- NOTE | 2021-07-18 12:00 | NUR ---
ms rn was seen by dr. roland gonzalez/ orders made and carried out.
--- NOTE | 2021-07-18 14:00 | NUR ---
ms rn received order for discharge today to [facility], patient does not want there,case making machine operator is aware.
[2021-07-18] MEDS: Z GUARD REMEDY 4 OZ OINT TP SCH (14:27)
[2021-07-18] MEDS: VITAMINS A AND D 56.7 GM TUBE TP SCH ×2 (14:28→17:27)
[2021-07-18 16:00] VITALS: BP 120/56
--- NOTE | 2021-07-18 16:14 | NUR ---
ms rn patient speaking to his dpoa at this time regarding transfer.
[2021-07-18] MEDS: SOD FERRIC GLUC 125 MG in IV NS 0.9% 100 ML IV SCH (16:48)
[2021-07-18 17:22] VITALS: BP 128/64
--- NOTE | 2021-07-18 18:00 | NUR ---
ms rn ready for discharge, gave report to joana farris at [facility],refused to take pictures at bilateral foot and sacral redness,all needs attended.
--- NOTE | 2021-07-18 18:50 | NUR ---
ms rn patient transferred via ambulance,no distress noted.
== END 2021-07-18 20:19 | DRG 280 ==
LOC: ER 10:11 → TRANSITION 14:55 → TELE 16:38 → ICU 07-15 16:30 → TELE1 07-16 14:31
PROVIDERS: ADMIT Internal Medicine Nephrology; ATTEND Internal Medicine Nephrology
PROC: 4A023N7 Measurement of Cardiac Sampling and Pressure, Left Heart, Percutaneous Approach (ICD-10-PCS; principal; 2021-07-15)
PROC: B211YZZ Fluoroscopy of Multiple Coronary Arteries using Other Contrast (ICD-10-PCS; 2021-07-15)
PROC: 05HB33Z Insertion of Infusion Device into Right Basilic Vein, Percutaneous Approach (ICD-10-PCS; 2021-07-16)
DX: I21.4 Non-ST elevation (NSTEMI) myocardial infarction (principal); I50.23 Acute on chronic systolic (congestive) heart failure; J96.01 Acute respiratory failure with hypoxia; I13.0 Hypertensive heart and chronic kidney disease with heart failure and stage 1 through stage 4 chronic kidney disease, or unspecified chronic kidney disease; I82.412 Acute embolism and thrombosis of left femoral vein; K50.90 Crohn's disease, unspecified, without complications; K21.9 Gastro-esophageal reflux disease without esophagitis; G40.909 Epilepsy, unspecified, not intractable, without status epilepticus; N18.9 Chronic kidney disease, unspecified; I50.9 Heart failure, unspecified; Z20.822 Contact with and (suspected) exposure to COVID-19; Z86.73 Personal history of transient ischemic attack (TIA), and cerebral infarction without residual deficits; Z86.718 Personal history of other venous thrombosis and embolism; E87.6 Hypokalemia; F32.9 Major depressive disorder, single episode, unspecified; Z90.49 Acquired absence of other specified parts of digestive tract; Z88.5 Allergy status to narcotic agent; Z88.8 Allergy status to other drugs, medicaments and biological substances; Z79.01 Long term (current) use of anticoagulants; Z79.82 Long term (current) use of aspirin; Z79.899 Other long term (current) drug therapy; E83.42 Hypomagnesemia; I25.10 Atherosclerotic heart disease of native coronary artery without angina pectoris; I25.2 Old myocardial infarction; I16.0 Hypertensive urgency; F09 Unspecified mental disorder due to known physiological condition; D64.9 Anemia, unspecified; L85.3 Xerosis cutis; L30.9 Dermatitis, unspecified; I87.8 Other specified disorders of veins; L89.896 Pressure-induced deep tissue damage of other site; I48.91 Unspecified atrial fibrillation; Z79.890 Hormone replacement therapy; Z99.3 Dependence on wheelchair
CPT/HCPCS: 36410; 36415; 71045-TC; 80048-TC; 80076-TC; 82607-TC; 82728-TC; 83540-TC; 83605-TC; 83735-TC; 83880; 84100-TC; 84484-TC; 85025-TC; 85610-TC; 85730-TC; 87040-TC; 87081-TC; 93307-TC; 93970-TC; 94799-TC; 97116-TC; 97530-TC; A6253; C1887; C1894; C9803; G0378; G0500; J1644; J1650; J1940; J2250; J2916; J3010; J3480; J3490; J7030; J7040; J7050; J7060; Q9967

== ENCOUNTER 2024-10-04 13:34 | Inpatient (IN) | payer MEDICARE, OTHER ==
[~2024-10-04] VITALS: Ht 162.6 cm; Wt 76.2 kg
[~2024-10-04 13:34] MED LIST changes: -ALLA266C2 TP; +APIX5TAB PO; +ASCO500C17 PO; +ATOR40TA PO; -BALS750C7 PO; +CRAN3875 PO; -DIVA250T47 PO; -DIVA500T54 PO; +LEVO137T24 PO; +LISI2.5T2 PO; -METO25TA20 PO; -NITR0.4T48 SL; -RXVAN XX; -SIMV10TA98 PO; +SULF500T8 PO; -VALS40TA4 PO
[2024-10-04 14:12] LABS: PLATELET COUNT (AUTO) 157 K/uL (150-450); RED BLOOD CELL COUNT(AUTO) 3.03 MIL/uL (4.5-6.0); RED CELL DISTRIBUTION WIDTH 16.7 % (11.5-15.0); WHITE BLOOD COUNT (AUTO) 7.2 K/uL (4.3-11.0)
[2024-10-04 14:31] LABS: CALCIUM, SERUM 8.4 mg/dL (8.5-10.1); CREATININE 1.9 mg/dL (0.6-1.3); SODIUM SERUM 147.0 mmol/L (136-145); UREA NITROGEN, BLOOD 37.0 mg/dL (7-18)
[2024-10-04] MEDS ORDERED: CARV12.5 PO (14:47)
[2024-10-04] MEDS ORDERED: FOLI0.4T6 PO (14:47)
[2024-10-04] MEDS ORDERED: POLY17PO4 PO (14:47)
[2024-10-04] MEDS ORDERED: L. A1TAB10 PO (14:47)
[2024-10-04] MEDS ORDERED: CRAN425C6 PO (14:47)
[2024-10-04] MEDS ORDERED: ASCO-352 PO (14:47)
[2024-10-04] MEDS ORDERED: ONDA-97 PO (14:47)
[2024-10-04] MEDS ORDERED: CHOL500052 PO (14:47)
[2024-10-04] MEDS ORDERED: PETR113O PO (14:47)
[2024-10-04] MEDS ORDERED: ERTA1VIA4 IV (14:47)
[2024-10-04] MEDS ORDERED: ALLO100T PO (14:47)
[2024-10-04] MEDS ORDERED: BISA10SU11 RC (14:47)
[2024-10-04] MEDS ORDERED: PANT40TA2 PO (14:47)
[2024-10-04] MEDS ORDERED: ZINC220C6 PO (14:47)
[2024-10-04] MEDS ORDERED: SENN-18 PO (14:47)
[2024-10-04] MEDS ORDERED: XEROFORM TD (14:47)
[2024-10-04] MEDS ORDERED: POVI3780 TP (14:47)
[2024-10-04] MEDS ORDERED: SACU1TAB PO (14:47)
[2024-10-04] MEDS ORDERED: AMIN30LI2 PO (14:47)
[2024-10-04] MEDS ORDERED: ACET-868 PO (14:47)
[2024-10-04] MEDS ORDERED: IOHEXOL-350 100 ML VIAL IV ONE (15:16)
[2024-10-04] MEDS ORDERED: IV NS 0.9% 250 ML IV ONE (15:16)
[2024-10-04 16:19] LABS: INR 1.16 (0.91-1.10)
[2024-10-04] MEDS: IV LR 1000 ML 1,000 ML BAG IV ONE ×2 (17:19→18:59)
[2024-10-04] MEDS ORDERED: BISACODYL SUPP (10 MG) 10 MG/SUPP.RECT SUPP.RECT RC PRN (19:30)
[2024-10-04] MEDS ORDERED: ONDANSETRON 4 MG TAB.RAPDIS PO PRN (19:30)
[2024-10-04] MEDS ORDERED: SENNOSIDES 8.6 MG TABLET PO PRN (19:30)
[2024-10-04 20:40] VITALS: BP 118/68; TEMP 97.7; O2SAT 96
[2024-10-04] MEDS: LEVETIRACETAM SOL (5 ML) 100 MG/ML UDC PO SCH (21:00)
[2024-10-04] MEDS: LEVETIRACETAM (250 MG) 250 MG TABLET PO SCH (21:00)
[2024-10-04] MEDS: IV NS 0.9% 500 ML IV SCH (21:06)
[2024-10-04] MEDS ORDERED: IV NS 0.9% 1,000 ML IV PRN (21:30)
[2024-10-04] MEDS: ATORVASTATIN 40 MG TABLET PO SCH (21:57)
[2024-10-05] VITALS: BP 116/68; TEMP 98.1; O2SAT 96
[2024-10-05] MEDS: IV NS 0.9% 1,000 ML IV PRN (01:04)
[2024-10-05 04:00] VITALS: BP 107/87; TEMP 98.1; O2SAT 96
[2024-10-05] MEDS: LEVOTHYROXINE SODIUM 50 MCG TABLET PO SCH (07:06)
[2024-10-05] MEDS: PANTOPRAZOLE 40 MG TABLET.DR PO SCH (07:06)
[2024-10-05 07:23] LABS: PLATELET COUNT (AUTO) 146 K/uL (150-450); RED BLOOD CELL COUNT(AUTO) 2.81 MIL/uL (4.5-6.0); RED CELL DISTRIBUTION WIDTH 16.6 % (11.5-15.0); WHITE BLOOD COUNT (AUTO) 6.9 K/uL (4.3-11.0)
[2024-10-05] MEDS ORDERED: BUDESONIDE 3 MG CAP.SR.24H PO SCH (07:30)
[2024-10-05] MEDS ORDERED: PANTOPRAZOLE 40 MG TABLET.DR PO SCH (07:30)
[2024-10-05 07:42] LABS: LDL 66.0 mg/dL (0-99)
[2024-10-05 07:43] LABS: CALCIUM, SERUM 8.0 mg/dL (8.5-10.1); CREATININE 1.6 mg/dL (0.6-1.3); SODIUM SERUM 144.0 mmol/L (136-145); UREA NITROGEN, BLOOD 33.0 mg/dL (7-18)
[2024-10-05 08:00] VITALS: BP 107/87; TEMP 97.9; O2SAT 96
[2024-10-05] MEDS ORDERED: ERTAPENEM SODIUM 1 GM IV SCH (09:00)
[2024-10-05] MEDS: CALCIUM CARB 600MG /VIT D 1 EACH TABLET PO SCH (09:53)
[2024-10-05] MEDS: ACETAMINOPHEN 325 MG TABLET PO SCH (09:53)
[2024-10-05] MEDS: ACIDOPHILUS/BULGARICUS 1 EACH TAB.CHEW PO SCH (09:53)
[2024-10-05] MEDS: ALLOPURINOL 100 MG TABLET PO SCH (09:54)
[2024-10-05] MEDS: ZINC SULFATE 220 MG CAPSULE PO SCH (09:54)
[2024-10-05] MEDS: CARVEDILOL 12.5 MG TABLET PO SCH (09:54)
[2024-10-05] MEDS: ASCORBIC ACID 500 MG TABLET PO SCH (09:55)
[2024-10-05] MEDS: MULTIVIT W/MINERALS 1 TAB TABLET PO SCH (09:55)
[2024-10-05] MEDS: FOLIC ACID 1 MG TABLET PO SCH (09:55)
[2024-10-05] MEDS: BACLOFEN (10 MG) 10 MG TABLET PO SCH (09:56)
[2024-10-05] MEDS: POLYETHYLENE GLYCOL 3350 17 GM POWD.PACK PO SCH (09:56)
[2024-10-05] MEDS: APIXABAN 5 MG TABLET PO SCH ×2 (09:58→16:37)
[2024-10-05] MEDS: SULFASALAZINE 500 MG TABLET PO SCH (09:58)
[2024-10-05] MEDS: PROSOURCE / PROSTAT (PYXIS) 30 ML UDC PO SCH (09:59)
[2024-10-05] MEDS: THERAHONEY GEL 1.5 OZ TUBE TP SCH (10:08)
[2024-10-05] MEDS: CYANOCOBALAMIN 100 MCG TABLET PO SCH (10:23)
[2024-10-05 12:00] VITALS: BP 106/62; TEMP 97.5; O2SAT 96
[2024-10-05] MEDS: MEROPENEM 1 G in IV NS 0.9% 100 ML IV SCH (15:08)
[2024-10-05 16:00] VITALS: BP 111/69; TEMP 97.5; O2SAT 96
[2024-10-05] MEDS: CLOTRIMAZOLE/BETAMETASONE DIPROPIONATE 15 GM TUBE TP SCH (16:40)
[2024-10-05 19:04] LABS: APPEARANCE,URINE TURBID (CLEAR); BLOOD, URINE 2+ Ery/uL (NEGATIVE); LEUKOCYTE ESTERASE ,URINE 3+ (NEGATIVE); NITRITE, URINE POSITIVE (NEGATIVE); UGLUCOSE NEGATIVE (NEGATIVE)
[2024-10-05 19:13] LABS: CREATININE, URINE 96.3 MG/DL (30.0-125.0); URINE SODIUM, RANDOM 69.0 mmol/l (40-220); URINE TOTAL PROTEIN 104.7 mg/dL (0-11.9)
[2024-10-05 19:19] LABS: ADD URINE CULTURE YES; SQUAMOUS EPITHELIAL CELL,UR None Seen /HPF (None Seen)
[2024-10-05 20:00] VITALS: BP 119/92; TEMP 98.8; O2SAT 95
[2024-10-05 20:04] LABS: EOSINOPHIL,URINE None Seen
[2024-10-05] MEDS: ERGOCALCIFEROL (VITAMIN D 2) 50,000 UNIT CAPSULE PO SCH (20:13)
[2024-10-05] MEDS: LEVETIRACETAM (250 MG) 250 MG TABLET PO SCH (21:29)
[2024-10-06] VITALS (7 sets, daily range): BP systolic 95–134; BP diastolic 64–87; TEMP 97.5–98.5; O2SAT 95–97
[2024-10-06 07:10] LABS: PLATELET COUNT (AUTO) 160 K/uL (150-450); RED BLOOD CELL COUNT(AUTO) 2.95 MIL/uL (4.5-6.0); RED CELL DISTRIBUTION WIDTH 17.0 % (11.5-15.0); WHITE BLOOD COUNT (AUTO) 8.4 K/uL (4.3-11.0)
[2024-10-06 07:30] LABS: ASPARTATE AMINOTRANSFERASE 36.0 U/L (15-37); CALCIUM, SERUM 8.2 mg/dL (8.5-10.1); CREATININE 1.9 mg/dL (0.6-1.3); PHOSPHORUS 3.8 mg/dL (2.5-4.9); SODIUM SERUM 143.0 mmol/L (136-145); TOTAL PROTEIN, SERUM 6.0 g/dL (6.4-8.2); UREA NITROGEN, BLOOD 33.0 mg/dL (7-18)
[2024-10-06 07:43] LABS: CREATINE KINASE, TOTAL 795.0 U/L (39-308); LDL 71.0 mg/dL (0-99)
[2024-10-06] MEDS ORDERED: ENOXAPARIN SODIUM 80 MG/0.8 ML DISP.SYRIN SQ SCH (09:00)
[2024-10-06] MEDS: BUDESONIDE 3 MG CAP.SR.24H PO SCH (09:51)
[2024-10-06] MEDS: MAGNESIUM OXIDE 400 MG TABLET PO ONE (10:42)
[2024-10-06] MEDS: MEROPENEM 1 G in IV NS 0.9% 100 ML IV SCH (15:58)
[2024-10-06] MEDS: PIPERACILLIN /TAZOBACTAM 2.25 G in IV D5W 50 ML IV ONE (23:10)
[2024-10-06] MEDS: PIPERCILLIN/TAZOBACTAM 2.25GM/D5W 50MLPB IV ONE (23:33)
[2024-10-07] VITALS: BP 129/74; TEMP 97.8; O2SAT 97
[2024-10-07 04:00] VITALS: BP 98/65; TEMP 97.7; O2SAT 95
[2024-10-07 05:09] LABS: PTH, INTACT 66 pg/mL (15-65)
[2024-10-07 06:57] LABS: PLATELET COUNT (AUTO) 144 K/uL (150-450); RED BLOOD CELL COUNT(AUTO) 2.80 MIL/uL (4.5-6.0); RED CELL DISTRIBUTION WIDTH 16.5 % (11.5-15.0); WHITE BLOOD COUNT (AUTO) 7.5 K/uL (4.3-11.0)
[2024-10-07 07:59] LABS: CALCIUM, SERUM 8.1 mg/dL (8.5-10.1); CREATININE 2.2 mg/dL (0.6-1.3); PHOSPHORUS 3.8 mg/dL (2.5-4.9); SODIUM SERUM 146.0 mmol/L (136-145); UREA NITROGEN, BLOOD 33.0 mg/dL (7-18)
[2024-10-07 08:00] VITALS: BP 129/70; TEMP 98.2; O2SAT 95
[2024-10-07] MEDS: MAGNESIUM OXIDE 400 MG TABLET PO ONE (09:39)
[2024-10-07 10:43] LABS: ABG BASE EXCESS -8.5 mmol/L (-2.0-3.0); ABG OXYGEN SATURATION 94.8 % (94.0-98.0); ABG PCO2 35.7 mmHg (35.0-48.0); ABG PH 7.300 (7.350-7.450); ABG PO2 78.7 mmHg (83.0-108.0); ABG TOTAL HEMOGLOBIN 9.1 G/dL (13.5-17.5); SITE, ABG RIGHT RADIAL
[2024-10-07] MEDS: PIPERACILLIN /TAZOBACTAM 2.25 G in IV D5W 50 ML IV SCH (11:35)
[2024-10-07 12:00] VITALS: BP 123/75; TEMP 98.4; O2SAT 95
[2024-10-07 16:00] VITALS: BP 113/64; TEMP 98.4; O2SAT 95
[2024-10-07 16:12] LABS: HIV-1/2 ANTIBODY NON REACTIVE (NONREACTIVE)
[2024-10-07 23:09] VITALS: BP 134/57; TEMP 97.5; O2SAT 97
[2024-10-08] VITALS (7 sets, daily range): BP systolic 116–145; BP diastolic 70–79; TEMP 97.7–98.6; O2SAT 94–97
[2024-10-08 06:07] LABS: HEPATITIS A AB, IgM Negative (Negative); HEPATITIS B CORE AB, IgM Negative (Negative)
[2024-10-08 06:20] LABS: PLATELET COUNT (AUTO) 150 K/uL (150-450); RED BLOOD CELL COUNT(AUTO) 2.69 MIL/uL (4.5-6.0); RED CELL DISTRIBUTION WIDTH 16.8 % (11.5-15.0); WHITE BLOOD COUNT (AUTO) 7.6 K/uL (4.3-11.0)
[2024-10-08 06:41] LABS: CALCIUM, SERUM 8.3 mg/dL (8.5-10.1); CREATININE 2.7 mg/dL (0.6-1.3); PHOSPHORUS 3.7 mg/dL (2.5-4.9); SODIUM SERUM 148.0 mmol/L (136-145); UREA NITROGEN, BLOOD 39.0 mg/dL (7-18)
[2024-10-08] MEDS ORDERED: LACTULOSE 10 G/15 ML UDC (PYXIS) PO PRN (19:30)
[2024-10-09] VITALS (7 sets, daily range): BP systolic 129–139; BP diastolic 68–97; TEMP 97.3–98.8; O2SAT 95–99
[2024-10-09 07:06] LABS: PLATELET COUNT (AUTO) 137 K/uL (150-450); RED BLOOD CELL COUNT(AUTO) 2.57 MIL/uL (4.5-6.0); RED CELL DISTRIBUTION WIDTH 17.0 % (11.5-15.0); WHITE BLOOD COUNT (AUTO) 7.2 K/uL (4.3-11.0)
[2024-10-09 07:15] LABS: CALCIUM, SERUM 8.0 mg/dL (8.5-10.1); CREATININE 2.6 mg/dL (0.6-1.3); PHOSPHORUS 3.6 mg/dL (2.5-4.9); SODIUM SERUM 147.0 mmol/L (136-145); UREA NITROGEN, BLOOD 35.0 mg/dL (7-18)
[2024-10-09] MEDS: LACTULOSE 10 G/15 ML UDC (PYXIS) PO SCH (11:34)
[2024-10-09] MEDS: PIPERACILLIN /TAZOBACTAM 2.25 G in IV D5W 50 ML IV SCH (15:03)
[2024-10-10] VITALS: BP 148/91; TEMP 98.4; O2SAT 97
[2024-10-10 04:00] VITALS: BP 145/76; TEMP 98.4; O2SAT 98
[2024-10-10 07:10] LABS: PLATELET COUNT (AUTO) 133 K/uL (150-450); RED BLOOD CELL COUNT(AUTO) 2.50 MIL/uL (4.5-6.0); RED CELL DISTRIBUTION WIDTH 16.9 % (11.5-15.0); WHITE BLOOD COUNT (AUTO) 6.6 K/uL (4.3-11.0)
[2024-10-10 07:26] LABS: SERUM AMMONIA 46 umol/L (11-32)
[2024-10-10 07:29] LABS: CALCIUM, SERUM 7.7 mg/dL (8.5-10.1); CREATININE 2.4 mg/dL (0.6-1.3); PHOSPHORUS 3.4 mg/dL (2.5-4.9); SODIUM SERUM 151.0 mmol/L (136-145); UREA NITROGEN, BLOOD 31.0 mg/dL (7-18)
[2024-10-10 07:45] LABS: CREATINE KINASE, TOTAL 160 U/L (39-308)
[2024-10-10 08:00] VITALS: BP 132/74; TEMP 98.8; O2SAT 99
[2024-10-10] MEDS: ERYTHROMYCIN BASE OPHTH 3.5 GM TUBE LEFTEYE SCH (09:40)
[2024-10-10] MEDS: MAGNESIUM OXIDE 400 MG TABLET PO ONE (10:44)
[2024-10-10] MEDS: IV D5W 1,000 ML IV SCH (11:38)
[2024-10-10 12:00] VITALS: BP 125/76; TEMP 98.1; O2SAT 98
[2024-10-10 16:00] VITALS: BP 123/50; TEMP 99; O2SAT 98
[2024-10-10] MEDS: LACTULOSE 10 G/15 ML UDC (PYXIS) PO SCH (16:41)
[2024-10-10 20:00] VITALS: BP 143/79; TEMP 98.4; O2SAT 100
[2024-10-11] VITALS: BP 140/91; TEMP 98.2; O2SAT 100
[2024-10-11 04:00] VITALS: BP 149/61; TEMP 98.2; O2SAT 100
[2024-10-11 06:43] LABS: PLATELET COUNT (AUTO) 143 K/uL (150-450); RED BLOOD CELL COUNT(AUTO) 2.57 MIL/uL (4.5-6.0); RED CELL DISTRIBUTION WIDTH 16.3 % (11.5-15.0); WHITE BLOOD COUNT (AUTO) 7.0 K/uL (4.3-11.0)
[2024-10-11 07:12] LABS: SERUM AMMONIA 37.0 umol/L (11-32)
[2024-10-11 07:23] LABS: ASPARTATE AMINOTRANSFERASE 23.0 U/L (15-37); CALCIUM, SERUM 8.3 mg/dL (8.5-10.1); CREATININE 2.0 mg/dL (0.6-1.3); PHOSPHORUS 2.9 mg/dL (2.5-4.9); SODIUM SERUM 146.0 mmol/L (136-145); TOTAL PROTEIN, SERUM 5.2 g/dL (6.4-8.2); UREA NITROGEN, BLOOD 26.0 mg/dL (7-18)
[2024-10-11 08:00] VITALS: BP 134/75; TEMP 97.7; O2SAT 98
[2024-10-11] MEDS: Magnesium 1GM/D5W 100ML PREMIX 100 ML IV SCH (09:16)
[2024-10-11] MEDS: MAGNESIUM OXIDE 400 MG TABLET PO SCH (11:08)
[2024-10-11] MEDS ORDERED: LEVE250T2 PO (11:18)
[2024-10-11] MEDS ORDERED: APIX5TAB PO (11:18)
[2024-10-11 12:00] VITALS: BP 148/69; TEMP 99; O2SAT 97
== END 2024-10-11 14:36 | DRG 100 ==
LOC: ER 13:36 → TELE 17:17 → TELE-TD 20:01 → MEDSG1 10-05 09:44 → TELE1 10-05 14:57
PROVIDERS: ADMIT Student in an Organized Health Care Education/Training Program; ATTEND Internal Medicine
DX: G40.909 Epilepsy, unspecified, not intractable, without status epilepticus (principal); G92.8 Other toxic encephalopathy; I50.23 Acute on chronic systolic (congestive) heart failure; N17.0 Acute kidney failure with tubular necrosis; I13.0 Hypertensive heart and chronic kidney disease with heart failure and stage 1 through stage 4 chronic kidney disease, or unspecified chronic kidney disease; K50.90 Crohn's disease, unspecified, without complications; I82.409 Acute embolism and thrombosis of unspecified deep veins of unspecified lower extremity; E87.0 Hyperosmolality and hypernatremia; E46 Unspecified protein-calorie malnutrition; Z16.12 Extended spectrum beta lactamase (ESBL) resistance; N39.0 Urinary tract infection, site not specified; K21.9 Gastro-esophageal reflux disease without esophagitis; N18.9 Chronic kidney disease, unspecified; Z66 Do not resuscitate; I16.0 Hypertensive urgency; N40.0 Benign prostatic hyperplasia without lower urinary tract symptoms; Z79.899 Other long term (current) drug therapy; Z86.718 Personal history of other venous thrombosis and embolism; Z87.19 Personal history of other diseases of the digestive system; Z88.5 Allergy status to narcotic agent; Z90.49 Acquired absence of other specified parts of digestive tract; Z88.8 Allergy status to other drugs, medicaments and biological substances; Z79.890 Hormone replacement therapy; Z79.01 Long term (current) use of anticoagulants; R32 Unspecified urinary incontinence; Z86.73 Personal history of transient ischemic attack (TIA), and cerebral infarction without residual deficits; Z87.440 Personal history of urinary (tract) infections; I25.2 Old myocardial infarction; I25.10 Atherosclerotic heart disease of native coronary artery without angina pectoris; E03.9 Hypothyroidism, unspecified; E78.5 Hyperlipidemia, unspecified; M1A.9XX1 Chronic gout, unspecified, with tophus (tophi); I27.21 Secondary pulmonary arterial hypertension; E86.9 Volume depletion, unspecified; D64.9 Anemia, unspecified; I65.02 Occlusion and stenosis of left vertebral artery; I25.82 Chronic total occlusion of coronary artery; F09 Unspecified mental disorder due to known physiological condition; D69.2 Other nonthrombocytopenic purpura; L22 Diaper dermatitis; L57.0 Actinic keratosis; S40.211A Abrasion of right shoulder, initial encounter; X58.XXXA Exposure to other specified factors, initial encounter; Y92.9 Unspecified place or not applicable; R93.9 Diagnostic imaging inconclusive due to excess body fat of patient
CPT/HCPCS: 36415; 36600; 70450-TC; 70496-TC; 70498-TC; 70551-TC; 71045-TC; 74018; 76536-TC; 76770-TC; 80048-TC; 80053-TC; 80061-TC; 81001; 82140-TC; 82550-TC; 82553; 82570-TC; 82607-TC; 82803-TC; 82962-TC; 83735-TC; 83921; 83970; 84100-TC; 84155; 84165; 84300-TC; 84425; 84439-TC; 84443-TC; 85025-TC; 85730-TC; 86705; 86709; 87040-TC; 87081-TC; 87086-TC; 87806; 92507-TC; 92521; 92526; 92611; 93307-TC; 95819-TC; 97110-TC; 97112-TC; 97530-TC; 97535-TC; A4223; A6253; G0378; J1953; J2185; J2543; J3475; J7030; J7040; J7050; J7060; J7070; J7120; Q9967